=== PATIENT | female | born 1950 | race Caucasian/White ===

== ENCOUNTER 2024-05-19 10:30 | Emergency (ER) | payer MEDICARE, MEDICAID, SELFPAY ==
[2024-05-19 10:35] VITALS: BP 171/110; PULSE 96; RESP 20; TEMP 36.3; O2SAT 95
[2024-05-19 11:00] VITALS: PULSE 100; O2SAT 95
--- NOTE | 2024-05-19 11:14 | XR_ITS ---
Examination: AP chest single view Technique: AP portable semiupright chest single view Exam date and time: May 19, 2024 1126 hrs. Comparison November 30, 2023 Indications: Shortness of breath coughing congestion today. Findings: Mild heart failure Moderate enlargement cardiac contour Prominent vascular congestion Suspicious for early pneumonia right upper lobe Prominent osteopenia Impression: Mild heart failure Suspicious for early pneumonia right upper lobe
--- NOTE | 2024-05-19 11:15 | EDNOTE_ITS ---
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 I have no knowledge of baseline and no report given. CODE STATUS not available at the time of this dictation. Patient has stable vital signs has a wet nonproductive cough. Per the care facility patient is full code. Related Data Home Medications ?Medication ?Instructions ?Recorded ?Confirmed loratadine 10 mg tablet 10 mg feeding tube QDAY 04/2412/01/23 phenobarbital 32.4 mg tablet 32.4 mg feeding tube BID 12/01/23 12/01/23 phenytoin 50 mg chewable tablet 50 mg G-tube BID 11/3012/01/23 Allergies Allergy/AdvReac Type Severity Reaction Status Date / Time No Known Allergies Allergy Verified 05/17/22 11:03 Review of Systems Review of Systems ROS Unobtainable: unobtainable due to mental status Past Medical History Past Medical History NEUROLOGIC: Positive Neurological Disorders, Seizures and Cerebral Palsy CARDIAC: Negative Cardiac Disorders, Hypercholesterolemia, Congestive Heart Failure, Hypertension or Hypotension RESPIRATORY: Negative Chronic Obstructive Pulmonary Disease (COPD), Asthma or Sleep Apnea GASTROINTESTINAL: Positive Gastrointestinal Disorders GENITOURINARY: Positive Genitourinary Disorders; Negative Renal Disease MUSCULOSKELETAL: Positive Musculoskeletal Disorders ENT: Positive Blind ENDOCRINE: Negative Endocrine Disorders, Diabetes Mellitus Type 1 or Diabetes Mellitus Type 2 HEMATOLOGIC: Negative Sickle Cell Disease OTHER HISTORY: Positive Developmental Delay; Negative Blood Transfusions, Anesthesia Reactions or Cancer Social History SMOKING STATUS: Never smoker ED Exam Narrative Physical exam: [General: Appears not in any acute distress Head normocephalic HEENT: Eyes closed. Report is blind, mouth pink dry membranes swallow symmetrical Neck is supple nontender Chest equal chest rise nontender to palpation Respiratory: Expiratory crackles in the right base. No tachypnea CV: Rate rhythm is regular no murmurs rubs or clicks Abdomen is body habitus soft nontender no masses positive bowel sounds all 4 stacy drants Back: No CVA tenderness no spinous process tenderness from cervical spine thoracic and lumbar spine Skin: Intact no petechiae rash induration ulceration or crepitus Extremities: All extremities flaccid, upper extremity hands contracted. Neuro: Breathing. Course Course Course Narrative: Patient has a normal rectal temperature, stable vital signs with oxygen saturations 95 to 96% or greater on room air. Chest x-ray shows no acute infiltrates. Influenza A positive influenza B negative. Respiratory therapist states deep suctioning did not result in large amount of secretions. At this time and comfortable discharging the patient home with influenza A. Quality Measures none Orders Category Date Time Status Bedside COVID-19 Antigen Test NOW Care 05/19/24 11:14 Completed Bedside Influenza A&B Antigen Test NOW Care 05/19/24 11:14 Completed XR chest 1V Stat Exams 05/19/24 11:14 Completed Airway suctioning ONCE RT 05/19/24 11:44 Completed Vital Signs Vital signs: Vital Signs Temperature 97.4 F 05/19/24 10:35 Pulse Rate 96 05/19/24 10:35 Respiratory Rate 20 05/19/24 10:35 Blood Pressure 171/110 H 05/19/24 10:35 Pulse Oximetry (%) 95 05/19/24 10:35 Oxygen Delivery Method Room Air 05/19/24 10:35 [facility] Patient data External records reviewed:: [facility] previous records and EMS form Clinical information provided by:: patient and EMS Social determinants that could affect healthcare access:: none Patient has the following chronic illnesses:: Quadriplegia cerebral palsy developmental delay blind How is presenting disease/condition affected by chronic disease/condition?: uneffected by Evaluation data The following diagnostics were reviewed and interpreted by me:: radiology exam(s) Lab and/or radiology exams considered but not ordered:: Influenza A positive Chest x-ray as interpreted by me shows no acute new finding requires emergent or immediate intervention. Interpretation Summary: Influenza A Medications Medications considered but not ordered:: None Medication administrations:: None Consultations Consultation(s) initiated? (list below): No Diagnosis Differential Diagnosis ED Complaint MDM: UTI pneumonia influenza Most likely diagnosis given after review of the tests above:: Influenza A Admission Indicated Admission indicated?: not indicated Explain why admission is indicated or not indicated:: Stable for discharge Admission Request Was there a request for admission?: No Disposition Plan Disposition Plan: Discharge Discharge Attestation Discharge Attestation: The patient and all family members were given an opportunity to ask questions and understood the discharge instructions. Discharge instructions specifically effects, indications for sooner follow up or return to the emergency department, and the expected course of current diagnosis. Patient condition: Stable Medical Decision Making Differential Diagnosis Differential Diagnosis: UTI pneumonia influenza Discharge Plan Plan Patient Disposition: HOME (Self Care) Patient condition on transfer: Stable Prescriptions/Referrals Prescriptions/Med Rec: No Action loratadine 10 mg Tablet 10 mg feeding tube QDAY phenytoin 50 mg Tablet,Chewable 50 mg G-tube BID phenobarbital 32.4 mg Tablet 32.4 mg feeding tube BID Problem List Clinical Impression: Influenza A Patient/Caregiver Discharge Instructions Education Materials: ED Influenza (Adult) Print Language: Citizen Of [place] Stand Alone Forms: Jessica Award Info., Patient Portal Info Letter PA/BANKRUPTCY MANAGER Supervising Physician PA/BANKRUPTCY MANAGER Supervising Physician: Sivakumar Mckeon ENP
[2024-05-19 12:14] VITALS: BP 174/65; PULSE 84; RESP 16; TEMP 36.6; O2SAT 94
--- NOTE | 2024-05-19 13:54 | PC.CC ---
ASWKeely was consulted regarding transportation back to shelter for the patient. ASW made contact with Savannah Betancur optometrist owner of the [employer] whom provided address for the patient to be transported back. ASW arranged transportation via [employer] for the patient. Reservation number [phone]
[2024-05-19 14:30] VITALS: BP 169/64; PULSE 87; RESP 18; TEMP 36.8; O2SAT 96
[2024-05-19 15:20] VITALS: BP 177/61; PULSE 85; RESP 18; TEMP 36.7; O2SAT 97
== END 2024-05-19 15:21 | disposition home or self-care (01) ==
LOC: SERX 13:55
PROVIDERS: Emergency Provider Emergency Medicine; PCP Nurse Practitioner Family
DX: J10.1 Influenza due to other identified influenza virus with other respiratory manifestations (principal); G80.8 Other cerebral palsy
CPT/HCPCS: 71045; 87400; 87811; 99283

== ENCOUNTER 2024-05-21 09:05 | Inpatient (IN) | payer MEDICARE, MEDICAID, SELFPAY ==
[2024-05-21] VITALS (13 sets, daily range): BP systolic 118–160; BP diastolic 63–86; PULSE 84–116; RESP 14–92; TEMP 36.3–37.4; O2SAT 94–99; BMI 31.8
--- NOTE | 2024-05-21 09:40 | PC.NURSE ---
PT RIVERAA; PER EMS REPORT, PT COMING FROM [facility] WITH S/O SOB. PT WAS SEEN HERE ON MONDAY AND WAS FLU POSITIVE AND WAS SENT BACK TO [facility]. STAFF CONCERNED THAT PT'S SYMPTOMS ARE NOT GETTING BETTER. PT HAS BAD COUGH AND HAS BEEN REQUIRING FREQUENT SUCTIONING AT THE S[facility]IOR [facility]ING. PT ALSO HAD FEVER AND HAS BEEN RECEIVING TYLENOL 500MG. PT HAS HX OF CEREBRAL PALSY AND DEVELOPMENTAL DELAY. PT CONNECTED TO MONITORS AT THIS TIME.
--- NOTE | 2024-05-21 12:08 | EDNOTE_ITS ---
ED SOB =RME/HPI General Chief Complaint: Shortness of Breath/Dyspnea Stated Complaint: SOB Arrival date/time: 05/21/24 09:05 RME / HPI RME / HPI Narrative: DR. MEDEROS MAIN ED EVALUATION: 73 year old female with past medical history significant for cerebral palsy and developmental delay presents to the Emergency Department from senior living [facility]IB[facility] with complaints of shortness of breath and wheezing. Patient was positive for influenza A on Monday; symptoms worsening and per EMS, patient was gargling on sputum. Related Data Home Medications ?Medication ?Instructions ?Recorded ?Confirmed loratadine 10 mg tablet 10 mg feeding tube QDAY 07/04/2412/01/23 phenobarbital 32.4 mg tablet 32.4 mg feeding tube BID 12/01/23 12/01/23 phenytoin 50 mg chewable tablet 50 mg G-tube BID 11/3012/01/23 Allergies Allergy/AdvReac Type Severity Reaction Status Date / Time No Known Allergies Allergy Verified 05/17/22 11:03 Review of Systems Review of Systems ROS Unobtainable: unobtainable due to medical condition Past Medical History Past Medical History NEUROLOGIC: Positive Neurological Disorders, Seizures and Cerebral Palsy GASTROINTESTINAL: Positive Gastrointestinal Disorders GENITOURINARY: Positive Genitourinary Disorders MUSCULOSKELETAL: Positive Musculoskeletal Disorders ENT: Positive Blind OTHER HISTORY: Positive Developmental Delay Social History SMOKING STATUS: Unknown if ever smoked ED Exam Narrative Physical exam: Physical Exam: General: The vital signs were reviewed. Patient is nonverbal tachycardic O2 sat is 91% on room air that could chest to respirations she is blind does not engage is chronically developmental delays. The patient is non-toxic, in no apparent distress and appears healthy with a patent airway, no respiratory distress and has no apparent circulatory problems. Head & Scalp: Some type of birthmark on the right eye >>>>>>>>>normocephalic, atraumatic. Face: Appears normal and is without lesions, deformity. Ears: Left external pinna appears normal. Right external pinna appears normal. Eyes: The sclera is anicteric. No obvious photophobia. The Left and Right Orbit/Lid/Conjunctiva appears normal without swelling, discoloration or injection. Nose: The nose is without deformity, discharge or tenderness; Throat: Appears normal. The mucous membranes are pink and moist without exudates, redness or mass seen. The tongue appears normal. Neck: The neck is supple and no apparent mass or adenopathy. Chest: The chest wall is normal in size and symmetry and has no chest wall tenderness or crepitus. The patient displays normal ventilator effort without retractions, accessory muscle use and has adequate air movement bilaterally with no wheezes and no rales. Cardiovascular: Regular rate and rhythm; No murmurs, rubs, or gallops; Gastrointestinal: The abdomen appears normal. No obvious hernias or mass. The abdomen is soft and benign, non-distended, with no pain, no guarding and no rebound tenderness. Bowel sounds are present and normal sounding. No CVA tenderness. Genitourinary: Back/Spine: No obvious pathology. Extremities/Musculoskeletal/lymphatic: The bilateral upper and lower extremities are warm. There is no evidence of arterial insufficiency. There is no evidence of venous insufficiency/edema. The patient spontaneously moves bilateral upper and lower extremities with no pain and no limitation of movement. There is no apparent, injury or trauma. Skin: The skin is warm, dry and intact. No rashes. No petechia. No purpura. No abnormal bruising. The color is appropriate with no cyanosis. Mental status/Psychiatric: Nonverbal noninteractive Neurological: Noninteractive nonverbal no further physical exam is able to be done this evidently is her baseline. Course Quality Measures none Orders Category Date Time Status Boarder Hand STAT Care 05/21/24 12:08 Active Continuous Pulse Oximetry STAT Care 05/21/24 12:08 Completed EKG (ED ONLY) *Do not use* NOW Care 05/21/24 12:08 Completed Insert IV NOW Care 05/21/24 12:08 Completed Miscellaneous Nursing Order NOW Care 05/21/24 12:08 Active NPO STAT Care 05/21/24 12:08 Active EKG (ED Only) Stat Exams 05/21/24 12:08 Draft XR chest 1V portable Stat Exams 05/21/24 12:08 Completed B-Type Natriuretic Peptide Stat Lab 05/21/24 12:47 Completed Blood Culture (Lab) Stat Lab 05/21/24 12:42 Received CBC Stat Lab 05/21/24 12:47 Completed Comprehensive Metabolic Panel Stat Lab 05/21/24 12:47 Completed Lactate (Lactic Acid) Stat Lab 05/21/24 12:47 Completed Magnesium Stat Lab 05/21/24 12:47 Completed Procalcitonin Stat Lab 05/21/24 12:47 Completed Prothrombin Time with INR Stat Lab 05/21/24 12:47 Completed RSV [Respiratory Syncytial Virus Ag] Stat Lab 05/21/24 13:21 Completed Troponin I Stat Lab 05/21/24 12:47 Completed Urinalysis Stat Lab 05/21/24 15:38 Completed Urine Culture Stat Lab 05/21/24 12:47 Received Venous Blood Gas Stat Lab 05/21/24 12:47 Completed ALBUTEROL RT 0.5ml [Proventil Rt 0.5ml] Med 05/21/24 12:08 Discontinued 10 mg INH X1 ONE Ipratropium Miller Rt Rylee [Atrovent Rt Rylee] Med 05/21/24 12:08 Discontinued 0.5 mg INH X1 ONE MethylPREDNISolone.* [SoluMEDROL Inj] Med 05/21/24 12:08 Discontinued 125 mg IVP X1 ONE Piper/Tazo 3.375 gm [Zosyn] Med 05/21/24 17:37 Discontinued 3.375 gm in 50 ml IV X1 Oxygen Delivery NOW RT 05/21/24 12:08 Active Vital Signs Vital signs: Vital Signs Temperature 99.4 F 05/21/24 09:40 Pulse Rate 106 H 05/21/24 09:40 Respiratory Rate 26 H 05/21/24 09:40 Blood Pressure 139/85 H 05/21/24 09:40 Pulse Oximetry (%) 95 05/21/24 09:40 Oxygen Delivery Method Nasal Cannula 05/21/24 09:40 Oxygen Flow Rate 2 05/21/24 09:40 Shortness of Breath / Dyspnea MDM Narrative MDM Narrative:: Patient returns the emergency department was seen here 2 days ago found to have influenza. Today she was swabbed for RSV and that came back positive also. She had congested respirations and was given continuous nebs and that seems to have some improvement. O2 sats are really unchanged though. Medical workup revealed venous blood gas pH is 754 and a pCO2 of 28 with respiratory alkalosis. Sodium is 129 potassium 4 6 chloride 97 CO2 25.8. BUN 15 creatinine 0.7. Troponin was negative. BNP was procalcitonin was 0.06. Urinalysis was negative with a urinary cath. There was 3+ bacteria though. Chest x-ray reveals some haziness of the right upper quadrant suggesting early pneumonia. Because the patient's debilitated is requiring suction to manage her secretions and and she remains tachycardic think it is best that she be admitted for pulmon courtney toilet she needs her oxygen as her O2 sats dropped at 91% on room air I will start her on some antibiotics to cover her possible bacterial pneumonia versus viral. Hospitalist was called and they will be admitting. Discussed the case at great length. Because the patient got continuous nebs for wheezing and congestion this to be a critical care. ICharito, am scribing for and in the presence of Dr. Mederos. Patient data External records reviewed:: [facility] previous records (Reviewed last ED visit dated 05/19/24, discharged with the following: Influenza A) and EMS form Clinical information provided by:: EMS Social determinants that could affect healthcare access:: housing (senior living) Patient has the following chronic illnesses:: Cerebral palsy and developmental delay How is presenting disease/condition affected by chronic disease/condition?: exacerbated by Evaluation data The following diagnostics were reviewed and interpreted by me:: lab results, radiology exam(s) and EKG tracing(s) (EKG#1: EKG at 1250 hours. Interpreted by me: sinus rhythm, rate 91, no STEMI) Lab and/or radiology exams considered but not ordered:: none Interpretation Summary: See above under MDM narrative. RADIOLOGY Procedure(s): XR chest 1V portable Accession Number(s): [id number] cc: Chris Mederos MD; Hwoard Villanueva MD; NO PRIMARY/FAMILY,PHYSICIAN~ Examination: AP chest single view Technique one AP portable upright chest single view Exam date and time: May 21, 2024 1221 hours Comparison May 19, 2024 INDICATIONS: Dyspnea coughing today. FINDINGS: Mild heart failure Mild enlargement cardiac contour Prominent vascular congestion with early septal edema the lung bases Opacity right upper lobe consistent with early pneumonia IMPRESSION: Mild heart failure Pneumonia right upper lobe Dictated By: Howard Villanueva MD Medications / Prescriptions Medications or Prescriptions considered but not ordered:: none Medication administrations:: Medication Administration History Acetaminophen (Acetaminophen 325 Mg Tablet) 650 mg PO Q6H PRN PRN Reason: PAIN SCALE 1-3 (mild Stop: 06/20/24 18:10 Albuterol/Ipratropium (Albuterol/Ipratropium (Duoneb) Rt Rylee 3 Ml Nebu) 3 ml INH Q4HR PRN PRN Reason: SHORTNESS OF BREATH OR WHEEZE Stop: 06/20/24 18:08 Enoxaparin Sodium (Enoxaparin Sod Inj 40 Mg/0.4 Ml Syringe) 40 mg SC QDAY CARMITA Stop: 06/05/24 08:59 Hydroxyzine HCl (Hydroxyzine Hcl 10 Mg Tablet) 10 mg PO Q6HR PRN PRN Reason: anxiety Stop: 06/20/24 19:23 Ceftriaxone Sodium 1,000 mg/ (Sodium Chloride) 50 mls @ 100 mls/hr IV QDAY CARMITA Stop: 05/28/24 18:16 Last Infusion: 05/21/24 19:21 Dose: Infused Documented By: Admin: 05/21/24 18:43 Dose: 100 mls/hr Documented By: GM Doxycycline Hyclate 100 mg/ (Sodium Chloride) 100 mls @ 100 mls/hr IV BID CARMITA Stop: 05/28/24 20:59 Loratadine (Loratadine Liqd 1 Mg/1 Ml) 10 mg GT X1 ONE Stop: 05/22/24 09:01 Ondansetron HCl (Ondansetron Inj 2 Mg/Ml Inj 2 Ml) 4 mg IV Q6H PRN; Protocol PRN Reason: NAUSEA OR VOMITING Stop: 06/20/24 18:10 Pantoprazole Sodium (Pantoprazole Inj 40 Mg Vial) 40 mg IVP QDAY [facility] Stop: 06/21/24 08:59 Phenobarbital (Phenobarbital 32.4 Mg Tablet) 32.4 mg GT TID [facility] Stop: 06/04/24 21:59 Phenytoin (Phenytoin 100 Mg/4 Ml Udc) 50 mg NG BID CARMITA Stop: 06/20/24 20:59 Discontinued Medications Albuterol (Albuterol Rt 2.5 Mg/0.5 Ml Nebu) 10 mg INH X1 ONE Stop: 05/21/24 12:09 Last Admin: 05/21/24 12:34 Dose: 10 mg Documented By: MW Furosemide (Furosemide Inj 10 Mg/Ml 4ml Vial) 20 mg IVP X1 ONE Stop: 05/21/24 18:18 Last Admin: 05/21/24 18:43 Dose: 20 mg Documented By: GM Piperacillin/Tazobactam/Dextrose (Zosyn) 3.375 gm in 50 mls @ 100 mls/hr IV X1 ONE Stop: 05/21/24 18:06 Last Infusion: 05/21/24 18:30 Dose: Infused Documented By: Admin: 05/21/24 17:50 Dose: 100 mls/hr Documented By: GM Ipratropium Miller (Ipratropium Rt 0.5 Mg/ 2.5 Ml Nebu) 0.5 mg INH X1 ONE Stop: 05/21/24 12:09 Last Admin: 05/21/24 12:34 Dose: 0.5 mg Documented By: MW Lactulose (Lactulose Syrup 20 Gm/30 Ml Udc) 10 gm GT X1 ONE; Protocol Stop: 05/21/24 18:15 Last Admin: 05/21/24 18:45 Dose: 10 gm Documented By: GM Methylprednisolone Sodium Succinate (Methylprednisolone Sod Succ 62.5 Mg/Ml 2ml Vial) 125 mg IVP X1 ONE Stop: 05/21/24 12:09 Last Admin: 05/21/24 12:32 Dose: 125 mg Documented By: GM Sodium Chloride (Sodium Chloride Rt 10% 15 Ml Nebu) 5 ml INH X1 ONE Stop: 05/21/24 18:12 see above Consultations Consultation(s) initiated? (list below): Yes Consultation #1 (Physician, Specialty, Details): Discussed test HPI, PMHx, lab, radiology results and/or management with hospitalist. Will admit for further evaluation and management. Accepts patient for admission. Time: 17:37 Diagnosis Shortness of Breath Differential Diagnosis: acute exacerbation of chronic obstructive airways disease, community acquired pneumonia and other (influenza) Most likely diagnosis given after review of the tests above:: Right upper xavier pneumonia Cerebral palsy Delayed developmental milestones RAD Hypoxemia RSV Influenza Admission Indicated Admission indicated?: indicated Admission Request Was there a request for admission?: Yes Admission Attestation Admission request attestation: Discussed case with [] from Hospitalist service regarding admission. Discussed patients ED course, exam findings, labs, and radiology results. The Hospitalist [agrees,declines] to accept the patient for admission. Disposition Plan Disposition Plan: Admit Critical Care Time Critical Care Time Critical Care Time: Yes Total Critical Care Time (min.): 45 Attestation: The high probability of sudden, clinically significant deterioration in the patient?s condition required the highest level of my preparedness to intervene urgently. The services I provided to this patient were to treat and/or prevent clinically significant deterioration. Services included the following: chart data review, reviewing nursing notes and/or old charts, documentation time, contaminated land consultant collaboration regarding findings and treatment options, medication orders and management, direct patient care, vital sign assessments and ordering, interpreting and reviewing diagnostic studies and lab tests. Aggregate critical care time includes only time during which I was engaged in work directly related to the patient?s care, as described above, whether at bedside or elsewhere in the Emergency Department. It did not include time spent performing other reported procedures or the services of residents, students, nurses or physician assistants. Discharge Plan Plan Patient Disposition: Admit Acute Care w/in Hospital Disposition Comment: Hospitalist to admit Problem List Clinical Impression: Right upper lobe pneumonia, Cerebral palsy, Delayed developmental milestones, RAD (reactive airway disease), Hypoxemia, RSV (respiratory syncytial virus pneumonia), Influenza
--- NOTE | 2024-05-21 12:08 | EKG_ITS ---
[facility] Test Date: 2024-05-21 Pat Name: MARKUS LEIGH Department: Room: - Gender: Female Lead Machinist: : 1950 Requested By: Chris Henderson Order Number: [id number] Reading MD: Chris Henderson Measurements Intervals [place] Rate: 91 P: 74 MI: 141 QRS: 71 QRSD: 77 T: 11 QT: 342 QTc: 421 Interpretive Statements SINUS RHYTHM LOW QRS VOLTAGE IN PRECORDIAL LEADS [QRS DEFLECTION < 1.0 mV IN CHEST LEADS] NONSPECIFIC T-WAVE ABNORMALITY Compared to ECG 11/30/2023 22:26:11 T-wave abnormality now present /store/S0/[id number]/ecg/[id number].pdf
[2024-05-21] MEDS: MethylPREDNISolone SOD SUCC 62.5 MG/ML 2ML VIAL 125 MG IVP (12:32)
[2024-05-21] MEDS: IPRATROPIUM RT 0.5 MG/ 2.5 ML NEBU INH (12:34)
[2024-05-21] MEDS: ALBUTEROL RT 2.5 MG/0.5 ML NEBU 10 MG INH (12:34)
[2024-05-21 13:00] LABS: Base Excess, Venous 3 (-3-3); O2 Saturation, Venous 100 % (96-97); PCO2, Venous 28 mmHg (36-56); PO2, Venous 108 mmHg (15-58); pH, Venous 7.54 (7.33-7.66)
[2024-05-21 13:02] LABS: Lactate (Lactic Acid) 1.1 mMol/L (0.4-2.0)
--- NOTE | 2024-05-21 13:02 | PC.NURSE ---
PT HAD SMALL BM, GREEN IN COLOR, SOFT & FORMED IN QUALITY. PT GIVEN PERINEAL CARE WITH WARM BATH CLOTHS. PT PLACED IN NEW BRIEFS AND GIVEN NEW BLANKET AT THIS TIME.
[2024-05-21 13:08] LABS: Basophils % (Auto) 0 % (0-2.5); Eosinophils # (Auto) 0.1 Thou/mm3 (0.0-0.5); Eosinophils % (Auto) 1 % (0-10); Hematocrit 37.9 % (36.0-46.0); Hemoglobin 13.1 g/dL (12.0-16.0); Immature Granulocytes % (Auto) 0 % (0-0); Immature Granulocytes Auto 0.04 Thou/mm3 (0.00-0.00); Lymphocytes # (Auto) 2.7 Thou/mm3 (1.0-4.8); Lymphocytes % (Auto) 25 % (10-50); Mean Corpuscular HGB Conc 34.6 g/dl (31.0-37.0); Mean Corpuscular Hemoglobin 32.7 pg (25.0-35.0); Mean Corpuscular Volume 95 fL (80-100); Monocytes # (Auto) 1.6 Thou/mm3 (0.0-0.8); Monocytes % (Auto) 15 % (0-12); Neutrophils # (Auto) 6.2 Thou/mm3 (1.8-7.7); Neutrophils % (Auto) 58 % (37-80); Nucleated Red Blood Cell % 0 /100 WBC (0); Platelet Count 159 Thou/mm3 (140-440); RDW Standard Deviation 46.5 fL (36.4-46.3); Red Blood Count 4.01 Miln/mm3 (4.00-5.20); White Blood Count 10.7 Thou/mm3 (3.6-11.0)
[2024-05-21 13:24] LABS: B-Type Natriuretic Peptide 40 pg/mL (0-100)
[2024-05-21 13:34] LABS: Alanine Aminotransferase 22 U/L (10-49); Albumin, Serum 3.6 gm/dL (3.4-4.8); Albumin/Globulin Ratio 1.1 (1.2-2.2); Alkaline Phosphatase 215 U/L (46-116); Anion Gap 6 (7-16); Aspartate Amino Transferase 35 U/L (0-34); BUN/Creatinine Ratio 38 Ratio (12-20); Bilirubin,Total < 0.2 mg/dL (0.3-1.2); Blood Urea Nitrogen 15 mg/dL (9-23); Calcium 8.6 mg/dL (8.3-10.6); Calcium (Corrected) 8.9 mg/dL (8.5-10.1); Carbon Dioxide 25.8 mMol/L (20.0-31.0); Chloride 97 mMol/L (98-107); Creatinine (Component) 0.4 mg/dL (0.6-1.3); Estimated Creatinine Clearance 124.9 mL/min (>60); Globulin 3.3 gm/dL (2.3-3.5); Glucose 114 mg/dL (74-106); Osmolality,Calculated 260 (275-295); Potassium 4.6 mMol/L (3.4-5.1); Procalcitonin 0.06 ng/ml (0.0-0.49); Sodium 129 mMol/L (136-145); Total Protein 6.9 gm/dL (5.7-8.2); Troponin I < 0.020 ng/mL (0.0-0.045); eGFR > 60 See Note
[2024-05-21 13:35] LABS: Respiratory Syncytial Virus Ag Positive (Negative)
[2024-05-21 13:35] LABS: Prothrombin Time 10.9 Seconds (9.0-12.2)
[2024-05-21 16:00] LABS: Collection Type, Urine Clean Catch; Squamous Epithelial Cell,Urine 0 /hpf (0-5)
[2024-05-21 16:32] LABS: Bacteria,Urine 3+; Bilirubin,Urine Negative (Negative); Blood,Urine Negative (Negative); Clarity,Urine Clear (Clear/Hazy); Color,Urine Lt-Yellow (Lt Yel-Yel); Glucose, Urine Negative (Negative); Ketones,Urine Negative (Negative); Leukocyte Esterase,Urine Positive (Negative); Nitrite,Urine Negative (Negative); PH,Urine 6.5 (5.0-7.0); Protein,Urine Negative (Neg - Trace); RBC,Urine 1 /hpf (0-3); Specific Gravity,Urine 1.008 (1.001-1.035); Urobilinogen,Urine Negative mg/dL (0.0-1.0); WBC,Urine 1 /hpf (0-5)
[2024-05-21] MEDS: PIPER/TAZO 3.375 GM 3.375 GM/50 ML BAG IV (17:50)
--- NOTE | 2024-05-21 18:16 | PD.RESHP ---
Documentation for date of: 05/21/24 HPI History of Present Illness History of present illness: HPI is limited because patient is poor historian and is deaf. Most of history obtained through forms and chart review Daria is a 73 y/o female with PMHx of developmentally delayed, cerebral palsy, epilepsy, quadriplegic, cerebral palsy, blind, deaf, chronic PEG who comes from facility who comes for an evaluation of not feeling well, and shortness of breath. Of note, pt was recently discharged from the ED for similar complaints as caretakers said she was not feeling well. She tested positive for Influenza A, however, not knowing the duration of symptoms, tamiflu was not prescribed. Pt comes to the ED today for evaluation of SOB as she was brought it hypoxic. ED Course: Pt came to the ED with a temperature of 99.4, HR of 106, RR of 26, blood pressure of 139/85, and saturating 95% on 2LNC. She was evaluated and was found to have a sodium of 129, potassium of 4.6, chloride of 97,, bicarb 26, BUN/creatinine 15 and 0.4 respectively, glucose 114, white blood cell count 10.7, hemoglobin 13.1, platelet 159. VBG showed pH of 7.54, pCO2 of 28. AST ALT 35 and 22 respectively, magnesium 2.0, lactate 1.1, Pro-Mingo unremarkable, troponin negative x 1. Urinalysis shows leukosite esterase positive and +3 bacteria, RSV positive. Chest x-ray shows mild right sided pneumonia and mild CHF pattern. Patient was given albuterol x 1 ipratropium x 1, Solu-Medrol 125 mg x 1. Medicine was consulted and patient was admitted to the floors Past medical history: As above Surgical history unknown Allergies: Unknown Meds: Phenytoin 50 mg twice daily, loratadine 10 mg x 1, MiraLAX, hydroxyzine 10 mg as needed Family Hx: Limited Social history: Limited, no family, comes from facility and hearing care professional. Review of Systems Review of Systems Narrative Review of Systems: 12 point ROS is limited due to patient being poor historian Exam Vital Signs Temp Pulse Resp BP Pulse Ox O2 Del Method O2 Flow Rate 97.4 F 116 H 14 160/83 H 95 Nasal Cannula 3 05/21/24 18:00 05/21/24 15:37 05/21/24 18:00 05/21/24 18:00 05/21/24 18:00 05/21/24 18:00 05/21/24 18:00 Narrative Exam General: AAOx1?, Mouth breather, deaf, blind does not appear to be in any acute distress, sleeping, patient is in bottled up state with arms and feet close to body, chronically bedbound, quadriplegic HEENT: Moist mucous membranes, 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 Results: Labs 05/22/24 04:48 05/22/24 04:48 Labs: Short CBC 05/21/24 Range/Units 12:47 WBC 10.7 (3.6-11.0) Thou/mm3 Hgb 13.1 (12.0-16.0) g/dL Hct 37.9 (36.0-46.0) % Plt Count 159 (140-440) Thou/mm3 BMP 05/21/24 12:47 Sodium 129 L Potassium 4.6 Chloride 97 L Carbon Dioxide 25.8 BUN 15 Creatinine 0.4 L Glucose 114 H Calcium 8.6 Cardiac Enzymes 05/21/24 Range/Units 12:47 Troponin I < 0.020 (0.0-0.045) ng/mL Liver Function 05/21/24 Range/Units 12:47 Total Bilirubin < 0.2 L (0.3-1.2) mg/dL AST 35 H (0-34) U/L ALT 22 (10-49) U/L Alkaline Phosphatase 215 H (46-116) U/L Albumin 3.6 (3.4-4.8) gm/dL Urine 05/21/24 Range/Units 15:38 Urine Color Lt-Yellow (Lt Yel-Yel) Urine Clarity Clear (Clear/Hazy) Urine pH 6.5 (5.0-7.0) Ur Specific [place] 1.008 (1.001-1.035) Urine Protein Negative (Neg - Trace) Urine Glucose (UA) Negative (Negative) ABG Interpretation ABG results: 05/21/24 12:47 VBG pH 7.54 VBG pCO2 28 L VBG pO2 108 H VBG Base Excess 3 Quality Measures Quality Measures none Advance care planning discussed with:: patient Medications Home Medications and Allergies Home Medications ?Medication ?Instructions ?Recorded ?Confirmed ?Type loratadine 10 mg tablet 10 mg feeding tube QDAY 10/01/21 05/22/24 History phenobarbital 32.4 mg tablet 32.4 mg feeding tube BID 12/01/23 05/22/24 History phenytoin 50 mg chewable tablet 50 mg G-tube BID 12/01/23 05/22/24 History benzonatate 100 mg capsule 100 mg PO Q6H PRN cough 05/22/24 05/22/24 History hydroxyzine HCl 10 mg/5 mL oral 10 mg PO QID PRN itching 05/22/24 05/22/24 History solution polyethylene glycol 3350 17 gram 17 g feeding tube PRN PRN 05/22/24 05/22/24 History oral powder packet (ClearLax) constipation Allergies Allergy/AdvReac Type Severity Reaction Status Date / Time No Known Allergies Allergy Verified 05/17/22 11:03 Visit Medications Discontinued Medications Albuterol (Albuterol Rt 2.5 Mg/0.5 Ml Nebu) 10 mg INH X1 ONE Stop: 05/21/24 12:09 Last Admin: 05/21/24 12:34 Dose: 10 mg Piperacillin/Tazobactam/Dextrose (Zosyn) 3.375 gm in 50 mls @ 100 mls/hr IV X1 ONE Stop: 05/21/24 18:06 Last Admin: 05/21/24 17:50 Dose: 100 mls/hr Ipratropium [place] (Ipratropium Rt 0.5 Mg/ 2.5 Ml Nebu) 0.5 mg INH X1 ONE Stop: 05/21/24 12:09 Last Admin: 05/21/24 12:34 Dose: 0.5 mg Methylprednisolone Sodium Succinate (Methylprednisolone Sod Succ 62.5 Mg/Ml 2ml Vial) 125 mg IVP X1 ONE Stop: 05/21/24 12:09 Last Admin: 05/21/24 12:32 Dose: 125 mg Assessment & Plan Plan Assessment Daria is a 73 y/o female with PMHx of developmentally delayed, cerebral palsy, epilepsy, quadriplegic, cerebral palsy, blind, deaf, chronic PEG who is currently admitted for AHRF 05/05 to RSV PNA. #Acute hypoxic respiratory failure secondary to #RSV pneumonia #Influenza A positive, on 05/19 #? Superimposed bacterial infection, CAP versus aspiration No sepsis alert initiated Patient did come recently in for influenza A positive, however was not given Tamiflu Possible vascular congestion Was given Zosyn and Solu-Medrol 125 x 1 in ED Plan: ? Doxy and Rocephin ? DuoNebs as needed every 4 hours ? Frequent suctioning ? Oxygen, wean down as tolerated ? Tylenol for fever #Euvolemic hypoosmolar hyponatremia #Hypochloridemia #? Metabolic alkalosis with respiratory compensation Unsure if patient has oral intake or GI losses Patient does not appear to be hypovolemic at this time VBG shows pH of 7.5, however chloride of 97, potassium 4.6 Will hold on giving fluids at this time Plan: ? Fluid restriction ? Trend with CMP #History of seizure disorder. Chronic Plan: ?Resume phenobarbital 32.43 times a day ?Resumed home phenytoin 50 mg twice a day #History of developmental delay. #History of cerebral palsy on PEG tube. #History of quadriplegia. #History of blindness. #Hx of Deafness Chronic Will reach out to cdl b driver home for further information Plan: ? Referral to dietitian, will resume feeds after recommendations #Health Maintenance Disposition: Observation DVT prophylaxis: Lovenox GI prophylaxis: Protonix Diet: Will resume tube feeds tomorrow CODE STATUS: Full code, however will need to find POLST form Patient seen and care discussed with my senior resident, Dr. Nuñez , and my attending physician, Dr. Paige Magallanes, PGY-1 Attending Provider Attestation/Addendum I have examined the patient, reviewed labs and imaging findings, discussed the case with the resident(s), and reviewed entered orders. I agree with the plan of care as outlined in this note, with these additional summaries/recommendations: Patient is a 73-year-old female with a medical history of cerebral palsy, seizure disorder, developmental delay, and PEG tube who presents to [facility] emergency department on 05/21/2024 with chief complaints of shortness of breath and wheezing. Patient was found to have acute hypoxic respiratory failure and thus hospitalist team consulted for continuation of care. Patient seen at bedside. Patient will be admitted for acute hypoxic respiratory failure secondary to viral pneumonia from RSV plus influenza. Of note patient was diagnosed with influenza 2 days prior and has worsening symptoms. Chest x-ray shows pneumonia in right upper lobe. Start IV antibiotics. Order sputum cultures. Breathing treatments as needed. Follow-up blood cultures. Continue home antiepileptics for seizure disorder. Patient has PEG tube and we will consult dietary for tube feeds and free water flushes. Patient has history of chronic hyponatremia and sodium 129 and serum osmolality 260 on admission. We will proceed with fluid restriction for now. Repeat hematology and chemistry panel in AM. Dr. Paige MD
[2024-05-21] MEDS: cefTRIAXone 1,000 MG in SODIUM CHLORIDE 0.9% (Popper) 50 ML 100 MG IV (18:43)
[2024-05-21] MEDS: FUROSEMIDE INJ 10 MG/ML 4ML VIAL 20 MG IVP (18:43)
[2024-05-21] MEDS: LACTULOSE SYRUP 20 GM/30 ML UDC 10 GM GT (18:45)
[2024-05-21] MEDS: SODIUM CHLORIDE RT 10% 15 ML NEBU 5 ML INH (20:24)
[2024-05-21] MEDS: PHENYTOIN 100 MG/4 ML UDC 50 MG NG (22:56)
[2024-05-21] MEDS: PHENobarbitaL 32.4 MG TABLET GT (22:56)
[2024-05-21] MEDS: DOXYCYCLINE INJ 100 MG in SODIUM CHLORIDE 0.9% (P) 100 ML IV (22:56)
[2024-05-22] VITALS (9 sets, daily range): BP systolic 109–150; BP diastolic 55–86; PULSE 92–118; RESP 14–26; TEMP 36.4–37.1; O2SAT 93–118; BMI 21.0
[2024-05-22 05:26] LABS: Basophils % (Auto) 0 % (0-2.5); Eosinophils % (Auto) 0 % (0-10); Hematocrit 41.7 % (36.0-46.0); Hemoglobin 14.2 g/dL (12.0-16.0); Immature Granulocytes % (Auto) 0 % (0-0); Immature Granulocytes Auto 0.03 Thou/mm3 (0.00-0.00); Lymphocytes # (Auto) 1.1 Thou/mm3 (1.0-4.8); Lymphocytes % (Auto) 11 % (10-50); Mean Corpuscular HGB Conc 34.1 g/dl (31.0-37.0); Mean Corpuscular Hemoglobin 32.1 pg (25.0-35.0); Mean Corpuscular Volume 94 fL (80-100); Monocytes # (Auto) 1.2 Thou/mm3 (0.0-0.8); Monocytes % (Auto) 11 % (0-12); Neutrophils # (Auto) 7.8 Thou/mm3 (1.8-7.7); Neutrophils % (Auto) 77 % (37-80); Nucleated Red Blood Cell % 0 /100 WBC (0); Platelet Count 180 Thou/mm3 (140-440); RDW Standard Deviation 45.9 fL (36.4-46.3); Red Blood Count 4.42 Miln/mm3 (4.00-5.20); White Blood Count 10.1 Thou/mm3 (3.6-11.0)
[2024-05-22 05:52] LABS: Glucose Estimated Average 97 mg/dL (80-131)
[2024-05-22 05:54] LABS: Alanine Aminotransferase 27 U/L (10-49); Albumin/Globulin Ratio 1.1 (1.2-2.2); Alkaline Phosphatase 224 U/L (46-116); Anion Gap 10 (7-16); Aspartate Amino Transferase 30 U/L (0-34); BUN/Creatinine Ratio 35 Ratio (12-20); Bilirubin,Total 0.2 mg/dL (0.3-1.2); Blood Urea Nitrogen 14 mg/dL (9-23); Calcium 9.3 mg/dL (8.3-10.6); Calcium (Corrected) 9.3 mg/dL (8.5-10.1); Carbon Dioxide 27.4 mMol/L (20.0-31.0); Cardiac Risk Estimate 2.2 RATIO (3.7-5.6); Chloride 98 mMol/L (98-107); Cholesterol 160 mg/dL (132-200); Creatinine (Component) 0.4 mg/dL (0.6-1.3); Estimated Creatinine Clearance 102.1 mL/min (>60); Globulin 3.7 gm/dL (2.3-3.5); Glucose 86 mg/dL (74-106); HDL Cholesterol 72 mg/dL (40-60); LDL Cholesterol,Calculated 79 mg/dL (0-130); Magnesium 1.9 mg/dL (1.6-2.6); Osmolality,Calculated 269 (275-295); Phosphorous 2.9 mg/dL (2.4-5.1); Potassium 4.2 mMol/L (3.4-5.1); Sodium 135 mMol/L (136-145); Thyroid Stimulating Hormone 4.45 uIU/mL (0.55-4.78); Total Protein 7.7 gm/dL (5.7-8.2); Triglycerides 45 mg/dL (30-150); eGFR > 60 See Note
[2024-05-22] MEDS: PHENobarbitaL 32.4 MG TABLET GT ×3 (05:58→22:37)
[2024-05-22] MEDS: DOXYCYCLINE INJ 100 MG in SODIUM CHLORIDE 0.9% (P) 100 ML IV ×2 (09:44→22:00)
[2024-05-22] MEDS: cefTRIAXone 1,000 MG in SODIUM CHLORIDE 0.9% (Popper) 50 ML 100 MG IV (09:44)
[2024-05-22] MEDS: PHENYTOIN 100 MG/4 ML UDC 50 MG NG ×2 (09:45→22:37)
[2024-05-22] MEDS: ENOXAPARIN SOD INJ 40 MG/0.4 ML SYRINGE SC (09:45)
[2024-05-22] MEDS: PANTOPRAZOLE INJ 40 MG VIAL IVP (09:46)
--- NOTE | 2024-05-22 10:39 | PC.SS ---
Initial assessment: Patient is a 73-year-old female admitted for SOB. The patient is confused unable to complete assessment. Contacted Savannah listed on facesheet to complete the assessment. Savannah informs the patient is a resident of [facility]. Confirmed address and phone number of facesheet. Patient is aligned with [facility], however not conserved. The patient's alternate medical decision maker is designated to be Dr. Hardy with [facility]. [facility] block and case maker is Pascale Moise . The patient is completely wheelchair bound and requires assistance with ADL's. Patient's PCP is Dr. Angelique Chamorro. The discharge plan was discussed and patient to return to snf once stable. For transportation reach out to Savannah, from the snf to determine if available if not SS to arrange transportation on behalf of the patient. D/c plan: [facility] Contact: Savannah Betancur Next of Kin: [facility]: Dr. Hardy
[2024-05-22] MEDS: lorataDINE 10 MG TABLET PO (12:08)
--- NOTE | 2024-05-22 14:24 | ESPR_ITS ---
<Statement entered by Venancio Nuñez MD - 05/22/24 18:19> Senior Resident Attestation: I supervised/discussed management plan with architecture intern physician Dr. Magallanes, and was involved in the care of this patient. I personally saw and examined the patient and discussed the assessment and plan with the entire medicine team, including my attending. I agree with the assessment and plan as documented. Patient's care was discussed with attending physician, Dr. Gibson. Venancio Nuñez MD PGY-2. Documentation for date of: 05/22/24 Subjective Subjective Interval history: HPI is limited as patient is deaf and poor historian Patient examined at bedside today. No acute overnight events. Patient was sleeping when examined. BUN/creatinine of 14 and 0.4 slightly, white count of 10.1, hemoglobin 14.2, bicarb 27, sodium 135, potassium 4.2, magnesium 1.9. 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 Objective Labs 05/23/24 04:55 05/23/24 04:55 Labs: Laboratory Results - last 24 hr 05/21/24 05/22/24 15:38 04:48 WBC 10.1 RBC 4.42 Hgb 14.2 Hct 41.7 MCV 94 MCH 32.1 MCHC 34.1 RDW Std Deviation 45.9 Plt Count 180 Neut % (Auto) 77 Lymph % (Auto) 11 Hand % (Auto) 11 Eos % (Auto) 0 Baso % (Auto) 0 Neut # (Auto) 7.8 H Lymph # (Auto) 1.1 Hand # (Auto) 1.2 H Eos # (Auto) 0.0 Baso # (Auto) 0.0 Immature Gran # (Auto) 0.03 H Absolute Nucleated RBC 0.00 Immature Gran % 0 Nucleated RBC % 0 Sodium 135 L Potassium 4.2 Chloride 98 Carbon Dioxide 27.4 Anion Gap 10 BUN 14 Creatinine 0.4 L Estim Creat Clear Calc 102.1 eGFR > 60 BUN/Creatinine Ratio [address] Glu mg/dL 97 Hemoglobin A1c 5.0 Calculated Osmolality 269 L Calcium 9.3 Corrected Calcium 9.3 Phosphorus 2.9 Magnesium 1.9 Total Bilirubin 0.2 L AST 30 ALT 27 Alkaline Phosphatase 224 H Total Protein 7.7 Albumin 4.0 Globulin 3.7 H Albumin/Globulin Ratio 1.1 L Triglycerides 45 Cholesterol 160 LDL Cholesterol, Calc 79 HDL Cholesterol 72 H Cholesterol/HDL Ratio 2.2 L TSH 4.45 Ur Collection Type Clean Catch Urine Color Lt-Yellow Urine Clarity Clear Urine pH 6.5 Ur Specific [place] 1.008 Urine Protein Negative Urine Glucose (UA) Negative Urine Ketones Negative Urine Blood Negative Urine Nitrite Negative Urine Bilirubin Negative Urine Urobilinogen (Auto) Negative Ur Leukocyte Esterase Positive Urine RBC 1 Urine WBC 1 Ur Squamous Epith Cells 0 Urine Bacteria 3+ A ABG Interpretation ABG results: 05/21/24 12:47 VBG pH 7.54 VBG pCO2 28 L VBG pO2 108 H VBG Base Excess 3 Quality Measures Quality Measures none Advance care planning discussed with:: patient Assessment & Plan Assessment Current Active Medications: Generic Name Dose Route Start Last Admin Trade Name Freq PRN Reason Stop Dose Admin Acetaminophen 650 mg 05/21/24 18:11 Acetaminophen 325 Mg Tablet PO 06/20/24 18:10 Q6H PRN PAIN SCALE 1-3 (mild Albuterol/Ipratropium 3 ml 05/21/24 18:09 Albuterol/Ipratropium (Duoneb) Rt Rylee 3 Ml Nebu INH 06/20/24 18:08 Q4HR PRN SHORTNESS OF BREATH OR WHEEZE Enoxaparin Sodium 40 mg 05/22/24 09:00 02/19/25 09:45 Enoxaparin Sod Inj 40 Mg/0.4 Ml Syringe SC 06/05/24 08:59 40 mg QDAY CARMITA Administration Hydroxyzine HCl 10 mg 05/21/24 19:24 Hydroxyzine Hcl 10 Mg Tablet PO 06/20/24 19:23 Q6HR PRN anxiety Ceftriaxone Sodium 1,000 mg/ 50 mls @ 100 mls/hr 05/21/24 18:17 05/22/24 09:44 Sodium Chloride IV 05/28/24 18:16 100 mls/hr QDAY CARMITA Administration Doxycycline Hyclate 100 mg/ 100 mls @ 100 mls/hr 05/21/24 21:00 05/22/24 09:44 Sodium Chloride IV 05/28/24 20:59 100 mls/hr BID CARMITA Administration Ondansetron HCl 4 mg 05/21/24 18:11 Ondansetron Inj 2 Mg/Ml Inj 2 Ml IV 06/20/24 18:10 Q6H PRN NAUSEA OR VOMITING Protocol Pantoprazole Sodium 40 mg 05/22/24 09:00 05/22/24 09:46 Pantoprazole Inj 40 Mg Vial IVP 06/21/24 08:59 40 mg QDAY CARMITA Administration Phenobarbital 32.4 mg 05/21/24 22:00 05/22/24 13:48 Phenobarbital 32.4 Mg Tablet GT 06/04/24 21:59 32.4 mg TID CARMITA Administration Phenytoin 50 mg 05/21/24 21:00 05/22/24 09:45 Phenytoin 100 Mg/4 Ml Udc NG 06/20/24 20:59 50 mg BID CARMITA Administration Plan Assessment Daria is a 73 y/o female with PMHx of developmentally delayed, cerebral palsy, epilepsy, quadriplegic, cerebral palsy, blind, deaf, chronic PEG who is currently admitted for AHRF 2/2 to RSV PNA. #Acute hypoxic respiratory failure secondary to, improving, improving #RSV pneumonia, improving #Influenza A positive, on 05/19, improving #? Superimposed bacterial infection, CAP versus aspiration #GNR UTI No sepsis alert initiated Patient did come recently in for influenza A positive, however was not given Tamiflu Possible vascular congestion Was given Zosyn and Solu-Medrol 125 x 1 in ED Will follow up with urine culture sensitivites, pt is getting abx now It does not seem that patient has had GNR UTI in the past, however has had GPC UTI before Unsure if this is symptomatic or not at this time because patient is poor historian Plan: ? Doxy and Rocephin (05/21-) ? DuoNebs as needed every 4 hours ? Frequent suctioning ? Oxygen, wean down as tolerated ? Tylenol for fever ? Droplet and airborne precautions ? Follow-up urine culture #Euvolemic hypoosmolar hyponatremia #Hypochloridemia # Metabolic alkalosis with respiratory compensation, improving Sodium improving, levels 135 Will continue with fluid restriction at this time Plan: ? Fluid restriction ? Trend with CMP #History of seizure disorder. Chronic Plan: ? Continue phenobarbital 32.43 times a day ? Continue home phenytoin 50 mg twice a day #History of developmental delay. #History of cerebral palsy on PEG tube. #History of quadriplegia. #History of blindness. #Hx of Deafness Chronic Will reach out to business mgr home for further information For business mgr home family is not involved with patient's care, called about 3 months ago to see how she is doing, but does not seem that they visit her often. Has lived in a care home for about 40 years Plan: ? Referral to dietitian, will resume feeds after recommendations #Health Maintenance Disposition: Observation DVT prophylaxis: Lovenox GI prophylaxis: Protonix Diet: Tube feeds pending dietitian recs CODE STATUS: Full code Patient seen and care discussed with my senior resident, Dr. Nuñez , and my attending physician, Dr. Paige Magallanes, PGY-1 Attending Provider Attestation/Addendum I have examined the patient, reviewed labs and imaging findings, discussed the case with the resident(s), and reviewed entered orders. I agree with the plan of care as outlined in this note, with these additional summaries/recommendations: Patient seen at bedside. No acute overnight events. Patient continues to require supplemental oxygen. Significant secretions still present although appears slightly improved from yesterday. Patient is nonverbal and no history can be obtained. We will continue breathing treatments and supportive care for RSV & influenza. Continue IV antibiotics for likely superimposed bacterial infection. Blood cultures preliminarily showing no growth at 24 hours. Urine culture showing GNR. Sputum culture pending. Patient will remain hospitalized until final culture results are available and weaned from oxygen. Hyponatremia significantly improved. Continue antiepileptics. Continue tube feeds via PEG. Repeat hematology and chemistry panel in AM. Dr. Paige MD
--- NOTE | 2024-05-22 14:49 | PC.SS ---
Rounding note: plan is to resume tube feeds, pending cultures.
--- NOTE | 2024-05-22 15:04 | PC.DIETICIAN ---
Nutrition prescription: 1) Jevity 1.2 at 20 ml/hr via PEG tube by pump. Advance 10 ml every 8 hrs to goal rate of 40 ml/hr x 24 hrs. 2) Noel 1 pkt BID mixed with 6-8 oz water via PEG tube (unflavored). 3) Recommend: Vitamin C 250 mg BID, zinc sulfate 220 mg once daily, and nephro-vinay.
[2024-05-22] MEDS: ZINC SULFATE 220 MG CAPSULE GT (16:06)
[2024-05-22] MEDS: VIT B12/Vit C/FA (Nephrovite) TABLET 1 TAB GT (16:06)
[2024-05-22] MEDS: ALBUTEROL/IPRATROPIUM (Duoneb) RT SOL 3 ML NEBU INH (18:04)
[2024-05-22] MEDS: ASCORBIC ACID 250 MG TABLET GT (22:38)
[2024-05-23] VITALS (10 sets, daily range): BP systolic 116–157; BP diastolic 81–100; PULSE 80–110; RESP 17–25; TEMP 36–36.9; O2SAT 97–100
[2024-05-23 05:37] LABS: Basophils # (Auto) 0.1 Thou/mm3 (0.0-0.2); Basophils % (Auto) 1 % (0-2.5); Eosinophils # (Auto) 0.2 Thou/mm3 (0.0-0.5); Eosinophils % (Auto) 3 % (0-10); Hemoglobin 13.7 g/dL (12.0-16.0); Immature Granulocytes % (Auto) 0 % (0-0); Immature Granulocytes Auto 0.01 Thou/mm3 (0.00-0.00); Lymphocytes # (Auto) 1.4 Thou/mm3 (1.0-4.8); Lymphocytes % (Auto) 22 % (10-50); Mean Corpuscular HGB Conc 36.1 g/dl (31.0-37.0); Mean Corpuscular Hemoglobin 32.9 pg (25.0-35.0); Mean Corpuscular Volume 91 fL (80-100); Monocytes % (Auto) 15 % (0-12); Neutrophils # (Auto) 3.8 Thou/mm3 (1.8-7.7); Neutrophils % (Auto) 59 % (37-80); Nucleated Red Blood Cell % 0 /100 WBC (0); Platelet Count 203 Thou/mm3 (140-440); RDW Standard Deviation 43.6 fL (36.4-46.3); Red Blood Count 4.17 Miln/mm3 (4.00-5.20); White Blood Count 6.5 Thou/mm3 (3.6-11.0)
[2024-05-23] MEDS: PHENobarbitaL 32.4 MG TABLET GT ×2 (06:06→13:20)
[2024-05-23 06:34] LABS: Alanine Aminotransferase 35 U/L (10-49); Albumin, Serum 3.5 gm/dL (3.4-4.8); Albumin/Globulin Ratio 1.1 (1.2-2.2); Alkaline Phosphatase 203 U/L (46-116); Anion Gap 9 (7-16); Aspartate Amino Transferase 38 U/L (0-34); BUN/Creatinine Ratio 73 Ratio (12-20); Bilirubin,Total < 0.2 mg/dL (0.3-1.2); Blood Urea Nitrogen 29 mg/dL (9-23); Calcium 8.9 mg/dL (8.3-10.6); Calcium (Corrected) 9.3 mg/dL (8.5-10.1); Carbon Dioxide 24.7 mMol/L (20.0-31.0); Chloride 99 mMol/L (98-107); Creatinine (Component) 0.4 mg/dL (0.6-1.3); Estimated Creatinine Clearance 97.6 mL/min (>60); Globulin 3.1 gm/dL (2.3-3.5); Glucose 102 mg/dL (74-106); Magnesium 1.7 mg/dL (1.6-2.6); Osmolality,Calculated 272 (275-295); Potassium 4.2 mMol/L (3.4-5.1); Sodium 133 mMol/L (136-145); Total Protein 6.6 gm/dL (5.7-8.2); eGFR > 60 See Note
[2024-05-23] MEDS: PHENYTOIN 100 MG/4 ML UDC 50 MG NG (08:18)
[2024-05-23] MEDS: LANSOPRAZOLE 30 MG TAB.RAP.DR NG (08:18)
[2024-05-23] MEDS: VIT B12/Vit C/FA (Nephrovite) TABLET 1 TAB GT (08:19)
[2024-05-23] MEDS: ZINC SULFATE 220 MG CAPSULE GT (08:19)
[2024-05-23] MEDS: ASCORBIC ACID 250 MG TABLET GT (08:19)
[2024-05-23] MEDS: PANTOPRAZOLE INJ 40 MG VIAL IVP (08:19)
[2024-05-23] MEDS: cefTRIAXone 1,000 MG in SODIUM CHLORIDE 0.9% (Popper) 50 ML 100 MG IV (08:19)
[2024-05-23] MEDS: ENOXAPARIN SOD INJ 40 MG/0.4 ML SYRINGE SC (08:19)
[2024-05-23] MEDS: cephALEXin 250 MG CAPSULE 500 MG PO ×2 (09:59→17:12)
--- NOTE | 2024-05-23 10:01 | ESDS_ITS ---
<Statement entered by Sina Egan MD - 05/23/24 15:20> Patient was examined with the team including attending physician. Note reviewed, I agree with the discharge plan as documented. - Sina Egan M.D. PGY2 Planned Discharge Date 05/23/24 DS: Providers Provider Date of admission: 05/22/24 14:13 Primary care physician: Physician No Primary/Family Admitting Provider: Bao Gibson MD Attending Provider on Admission: Bao Gibson MD Consults: 05/21/24 18:15 Referral Registered Dietitian Routine Comment: 05/22/24 04:33 Referral Registered Dietitian Routine Comment: Referral Wound Care Routine Comment: Attending Provider on DC: Bao Gibson MD Discharging Provider: Bao Gibson MD DS: Diagnosis Problem List Completed Was Problem List Reviewed/Reconciled?: Yes Hospital Course Hospital Course Hospital course: HPI is limited because patient is poor historian and is deaf. Most of history obtained through forms and chart review Daria is a 73 y/o female with PMHx of developmentally delayed, cerebral palsy, epilepsy, quadriplegic, cerebral palsy, blind, deaf, chronic PEG who comes from facility who was admitted to [facility] on 05/21/2024 for RSV pneumonia and possible superimposed bacterial infection. She had initially came in for an evaluation of not feeling well, and shortness of breath. Of note, pt was recently discharged from the ED for similar complaints as caretakers said she was not feeling well. She tested positive for Influenza A, however, not knowing the duration of symptoms, Tamiflu was not prescribed. Pt comes to the ED today for evaluation of SOB as she was brought it hypoxic. Pt came to the ED with a temperature of 99.4, HR of 106, RR of 26, blood pressure of 139/85, and satura ting 95% on 2LNC. She was evaluated and was found to have a sodium of 129, potassium of 4.6, chloride of 97,, bicarb 26, BUN/creatinine 15 and 0.4 respectively, glucose 114, white blood cell count 10.7, hemoglobin 13.1, platelet 159. VBG showed pH of 7.54, pCO2 of 28. AST ALT 35 and 22 respectively, magnesium 2.0, lactate 1.1, Pro-Mingo unremarkable, troponin negative x 1. Urinalysis shows leukosite esterase positive and +3 bacteria, RSV positive. Chest x-ray shows mild right sided pneumonia and mild CHF pattern. Patient was given albuterol x 1 ipratropium x 1, Solu-Medrol 125 mg x 1. Medici ne was consulted and patient was admitted to the floors. While on the floors nurse staff home was contacted which elicited information including family not being involved with patient's life much, last time about 3 months ago they called to see how patient was doing but has not visited in several years. Patient has lived in nursing home for over 40 years. Patient continued to improve with supportive care and antibiotic treatment which was covering for community- acquired pneumonia with Rocephin and Doxy. MRSA nares was negative and Doxy was discontinued. Patient also had urine culture which showed Proteus mirabilis which was pansensitive. It was unsure if patient is having asymptomatic bacteriuria, however since patient is poor historian we will continue with treatment. Blood cultures were negative while in the hospital. Patient was discharged after improvement and recommended to continue with Keflex 500 mg 4 times a day to cover for bacterial pneumonia and for UTI. this medicine will be administered via G-tube in which she had tube feeds resumed while in the hospital. Patient was then discharged back to nurse staff home. #Acute hypoxic respiratory failure secondary to, improving, improving #RSV pneumonia, improving #Influenza A positive, on 05/19, improving #? Superimposed bacterial infection, CAP versus aspiration #Proteus mirabilis UTI #Euvolemic hypoosmolar hyponatremia #Hypochloridemia # Metabolic alkalosis with respiratory compensation, improving #History of seizure disorder. #History of developmental delay. #History of cerebral palsy on PEG tube. #History of quadriplegia. #History of blindness. #Hx of Deafness Discharge instructions: - Follow up with PCP after discharge - Continue Keflex 500mg four times a day for 5 days to complete course - Continue all other home medications - May take Mucinex DM for added mucolytic benefit - Return to ED if symptoms worsen Patient seen and care discussed with my senior resident, Dr. Egan, and my attending physician, Dr. Paige Magallanes, PGY-1 Time Spent with Patient Time attestation: Total time spent providing and/or coordinating discharge services: Time spent: Greater than 30 minutes Exam Vital Signs Temp Pulse Resp BP Pulse Ox O2 Del Method O2 Flow Rate 96.8 F 106 H 17 157/81 H 99 Nasal Cannula 2 05/23/24 08:00 05/23/24 08:00 05/23/24 08:00 05/23/24 08:00 05/23/24 08:00 05/23/24 08:00 05/23/24 08:00 Narrative Exam General: AAOx1?, Mouth breather, deaf, blind does not appear to be in any acute distress, sleeping, patient is in bottled up state with arms and feet close to body, chronically bedbound, quadriplegic HEENT: Moist mucous membranes, 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 Discharge Plan Plan Patient Disposition: Xfer Skilled Nsg Fac (SNF) Disposition Comment: Hospitalist to admit Patient condition on transfer: Stable Care Plan Goals: - Follow up with PCP after discharge - Continue Keflex 500mg four times a day for 5 days to complete course - Continue all other home medications - May take Mucinex DM for added mucolytic benefit - Return to ED if symptoms worsen Prescriptions/Referrals Prescriptions/Med Rec: New cephalexin 500 mg capsule 500 mg PO QID 5 Days Qty: 20 0RF Continued loratadine 10 mg Tablet 10 mg feeding tube QDAY polyethylene glycol 3350 [ClearLax] 17 gram powder in packet 17 g feeding tube PRN PRN (Reason: constipation) hydroxyzine HCl 10 mg/5 mL solution 10 mg PO QID PRN (Reason: itching) benzonatate 100 mg capsule 100 mg PO Q6H PRN (Reason: cough) Patient Comments: TAKE 1 CAPSULE BY MOUTH THREE TIMES A DAY NEEDED FOR COUGH phenytoin 50 mg Tablet,Chewable 50 mg G-tube BID phenobarbital 32.4 mg Tablet 32.4 mg feeding tube BID Referrals: No Primary/Family,Physician [Primary Care Provider] - Patient/Caregiver Discharge Instructions Discharge Activity: resume usual activities Print Language: Turkish Stand Alone Forms: Jessica Award Info., Patient Portal Info Letter Discharge Order Discharge Orders: Discharge (Routine); Ordered 05/23/24 Ordered By: Sina Egan Quality Discharge Quality Measures VTE prophylaxis (Lovenox) Attestestation MD Attestation I have examined the patient, reviewed labs and imaging findings, discussed the case with the resident(s), and reviewed entered orders. I agree with the plan of care as outlined in this note. Dr. Paige MD
--- NOTE | 2024-05-23 12:03 | PC.SS ---
Addendum entered by Eva Dailey 05/23/24 12:06: SS spoke to floor nurse who states patient was saturating 97% on room air. Staff from [facility] present at bedside. She states they can arrange for their own transportation. Original Note: Follow up note: Patient has d/c orders for today. SS spoke to [facility] avionics manager, Savannah, with update. Savannah prefers [facility] pharmacy on [address] for new medication. Staff also needs to know if patient will need new 02 for home. Relayed to floor nurse who will test patient for any 02 needs. [facility] wants patient sent home by ambulance. SS will schedule with [facility] for gurney transport.
[2024-05-23] MEDS: ALBUTEROL/IPRATROPIUM (Duoneb) RT SOL 3 ML NEBU INH (12:15)
--- NOTE | 2024-05-23 13:52 | PC.SS ---
Addendum entered by Eva Dailey 05/23/24 15:13: SS called to confirm transport with [facility]. [facility] transportation is assigned and will show up by 5p.m. Addendum entered by Eva Dailey 05/23/24 15:06: SS scheduled gurney transport through [facility], Ref# [id number] for tentative flower buncher or picker 5p.m. Original Note: Patient to d/c home. No d/c orders in place. Patient will need gurney transport.
--- NOTE | 2024-05-23 15:39 | PC.NURSE ---
made aware of BP: 145/100 no new orders.
--- NOTE | 2024-05-23 17:46 | PC.NURSE ---
Report called to Savannah, informed her that medical transport was enroute with patient. Savannah stated facility would be ready to receive patient when she arrived .
== END 2024-05-23 17:46 | disposition home or self-care (01) | DRG 193 ==
LOC: SERX 17:48 → SERHOLD 19:08 → S3SX 05-22 07:54
PROVIDERS: Student in an Organized Health Care Education/Training Program; Admitting Provider Student in an Organized Health Care Education/Training Program; Emergency Provider Emergency Medicine; Visit Provider Student in an Organized Health Care Education/Training Program
DX: J10.08 Influenza due to other identified influenza virus with other specified pneumonia (principal); J96.01 Acute respiratory failure with hypoxia; E87.1 Hypo-osmolality and hyponatremia; E87.3 Alkalosis; N39.0 Urinary tract infection, site not specified; J12.1 Respiratory syncytial virus pneumonia; I50.9 Heart failure, unspecified; R62.50 Unspecified lack of expected normal physiological development in childhood; G80.9 Cerebral palsy, unspecified; J45.909 Unspecified asthma, uncomplicated; G40.909 Epilepsy, unspecified, not intractable, without status epilepticus; H91.90 Unspecified hearing loss, unspecified ear; H54.7 Unspecified visual loss; Z93.1 Gastrostomy status; Z11.52 Encounter for screening for COVID-19; B96.4 Proteus (mirabilis) (morganii) as the cause of diseases classified elsewhere
CPT/HCPCS: 36415; 71045; 80053; 80061; 81001; 82803; 83036; 83605; 83735; 83880; 84100; 84145; 84443; 84484; 85025; 85610; 87040; 87077; 87081; 87086; 87186; 87205; 87634; 89220; 93225; 94640; 94644; A9270; G0378; J0696; J1650; J1940; J2470; J2543; J2919; J3490; J7050

== ENCOUNTER 2024-05-24 09:09 | Inpatient (IN) | payer MEDICARE, MEDICAID, SELFPAY ==
[2024-05-24] VITALS (16 sets, daily range): BP systolic 138–171; BP diastolic 86–115; PULSE 93–114; RESP 16–24; TEMP 36.2–36.7; O2SAT 91–100; BMI 28.3; BMI 39.6; BMI 35.1
--- NOTE | 2024-05-24 10:04 | PC.NURSE ---
Patient bib ambulance per staff at [facility] patient with SOB this am. Per EMS patient on neb tx on arrival with sat at 89% and ausculated left lung rhonchi, more than right. Patient with DD and nonverbal, no apparent distress noted, on 2l nc, with intermittent cough. Patient placed on pulse ox. Call light is within reach.
--- NOTE | 2024-05-24 10:05 | PD.EDSOB ---
ED SOB =RME/HPI General Chief Complaint: Shortness of Breath/Dyspnea Stated Complaint: SOB Time Seen by Provider: 05/24/24 10:03 Arrival date/time: 05/24/24 09:09 RME / HPI RME / HPI Narrative: 73 year old female with history of intellectual disability, cerebral palsy, epilepsy, quadriplegia, blindness, s/p PEG tube placement presents to the ED [facility] from [facility] for evaluation of shortness of breath today. Per medics, skilled nursing staff reported patient sounded very gurgly and appeared short of breath. Medics report patient was saturating 94% on 2L nasal cannula. Evidently was diagnosed with Influenza A on 05/19/2024 and was admitted here 05/21/2024 through 05/23/2024 for acute hypercapnic respiratory failure 2/2 to RSV pneumonia. Related Data Home Medications ?Medication ?Instructions ?Recorded ?Confirmed loratadine 10 mg tablet 10 mg feeding tube QDAY 10/01/21 05/22/24 phenobarbital 32.4 mg tablet 32.4 mg feeding tube BID 12/01/23 05/22/24 phenytoin 50 mg chewable tablet 50 mg G-tube BID 12/01/23 05/22/24 benzonatate 100 mg capsule 100 mg PO Q6H PRN cough 05/22/24 05/22/24 hydroxyzine HCl 10 mg/5 mL oral 10 mg PO QID PRN itching 05/22/24 05/22/24 solution polyethylene glycol 3350 17 gram 17 g feeding tube PRN PRN 05/22/24 05/22/24 oral powder packet (ClearLax) constipation Previous Rx's ?Medication ?Instructions ?Recorded cephalexin 500 mg capsule 500 mg PO QID Pneumonia 5 days #20 05/23/24 caps Allergies Allergy/AdvReac Type Severity Reaction Status Date / Time No Known Allergies Allergy Verified 05/24/24 09:46 Review of Systems Review of Systems ROS Unobtainable: unobtainable due to medical condition Past Medical History Past Medical History NEUROLOGIC: Positive Neurological Disorders, Seizures, Epilepsy and Cerebral Palsy RESPIRATORY: Positive Pneumonia GASTROINTESTINAL: Positive Gastrointestinal Disorders GENITOURINARY: Positive Genitourinary Disorders MUSCULOSKELETAL: Positive Musculoskeletal Disorders ENT: Positive Blind OTHER HISTORY: Positive Developmental Delay Social History SMOKING STATUS: Never smoker ED Exam Narrative Physical exam: GENERAL APPEARANCE: Patient is nonverbal, patient is blind and does not engage, chronically developmental delay. HEENT: NC, AT. MMM. Oropharynx clear. NECK: Supple without lymphadenopathy. No stiffness or restricted ROM. HEART: Normal rate and regular rhythm, normal S1/S1, no m/r/g LUNGS: Wheezing bilaterally, R>L. Moving air well. No crackles are heard. ABDOMEN: Soft, nontender, nondistended with good bowel sounds heard. EXTREMITIES: Without cyanosis, clubbing or edema. NEUROLOGICAL: Patient is nonverbal, patient is blind and does not engage, chronically developmental delay Skin: Warm and dry without any rash. Course Course Course Narrative: chest xray ordered to help determine etiology of shortness of breath. Quality Measures none Orders Category Date Time Status Admit to Inpatient Status Routine Admission 05/24/24 17:43 Active Patient Condition Routine Admission 05/24/24 17:43 Ordered Continuous Pulse Oximetry NOW Care 05/24/24 17:43 Active Isolation Precaution QSHIFT Care 05/24/24 17:39 Active Notify provider NEEDED Care 05/24/24 17:43 Active Obtain weight X1 Care 05/24/24 17:43 Active SVN NEEDED Care 05/24/24 17:50 Active Vital Signs, Non-Routine Q4H Care 05/24/24 17:45 Ordered Vital Signs, Non-Routine Q4H Care 05/24/24 21:45 Ordered Consult to Infectious Diseases Routine Cons 05/24/24 17:49 Ordered Consult to Pulmonology Routine Cons 05/24/24 17:[address] chest wo con Stat Exams 05/24/24 16:42 Taken XR chest 1V Stat Exams 05/24/24 10:05 Completed Blood Culture (Lab) Stat Lab 05/24/24 11:00 Received CBC Stat Lab 05/24/24 11:00 Completed CMP [Comprehensive Metabolic Panel] Stat Lab 05/24/24 11:00 Completed Cult AFB Sendout- Sputum* Stat Lab 05/24/24 17:50 Ordered Lactate (Lactic Acid) Stat Lab 05/24/24 11:00 Completed Magnesium AM DRAW Lab 05/25/24 05:00 Ordered Magnesium AM DRAW Lab 05/26/24 05:00 Ordered Magnesium AM DRAW Lab 05/27/24 05:00 Ordered Phosphorous AM DRAW Lab 05/25/24 05:00 Ordered Procalcitonin Stat Lab 05/24/24 11:00 Completed Renal Function Panel AM DRAW Lab 05/25/24 05:00 Ordered Renal Function Panel AM DRAW Lab 05/26/24 05:00 Ordered Renal Function Panel AM DRAW Lab 05/27/24 05:00 Ordered Troponin I Stat Lab 05/24/24 11:00 Completed ALBUTEROL RT 0.5ml [Proventil Rt 0.5ml] Med 05/24/24 10:04 Discontinued 10 mg INH X1 ONE ALBUTEROL RT 3ml [Proventil Rt 3ml] Med 05/24/24 13:48 Discontinued 2.5 mg INH X1 ONE Acetaminophen Tab [Tylenol Tab] Med 05/24/24 17:43 Ordered 1,000 mg PO Q6H PRN Enoxaparin [Lovenox] Med 05/25/24 09:00 Ordered 40 mg SC QDAY MethylPREDNISolone.* [SoluMEDROL Inj] Med 05/24/24 10:04 Discontinued 125 mg IVP X1 ONE Ondansetron Inj [Zofran Inj] Med 05/24/24 17:43 Ordered 4 mg IV Q6H PRN Sodium Chloride Rt Rylee 0.9% [NS Rt Rylee 0.9%] Med 05/24/24 10:04 Active 3 ml INH PRN PRN Sodium Chloride Rt Rylee 10% [NS Rt Rylee 10%] Med 05/24/24 17:49 Once 5 ml INH X1 ONE Code Status Routine Oth 05/24/24 17:43 Ordered Oxygen Delivery NOW RT 05/24/24 17:45 Active Vital Signs Vital signs: Vital Signs Temperature 97.1 F 05/24/24 09:17 Pulse Rate 101 H 05/24/24 09:17 Respiratory Rate 20 05/24/24 09:17 Blood Pressure 138/88 H 05/24/24 09:17 Pulse Oximetry (%) 91 L 05/24/24 09:17 Oxygen Delivery Method Nasal Cannula 05/24/24 09:17 Oxygen Flow Rate 2 05/24/24 09:17 Shortness of Breath / Dyspnea MDM Narrative MDM Narrative:: Ava Figueroa am scribing for and in the presence of Dr. Burnette. Patient data External records reviewed:: [facility] previous records (I reviewed admission from 05/21/2024 through 05/23/2024), EMS form and [facility] records (I reviewed hx and medication list from skilled nursing ) Clinical information provided by:: EMS Social determinants that could affect healthcare access:: housing (skilled nursing resident) Patient has the following chronic illnesses:: intellectual disability, cerebral palsy, epilepsy, quadriplegia, blindness, s/p PEG tube placement How is presenting disease/condition affected by chronic disease/condition?: exacerbated by Evaluation data The following diagnostics were reviewed and interpreted by me:: lab results and radiology exam(s) Lab and/or radiology exams considered but not ordered:: None Interpretation Summary: Ordering Physician: Fab Burnette MD Date of Service: 05/24/24 Procedure(s): XR chest 1V Accession Number(s): [id number] cc: Fab Burnette MD; Howard Villanueva MD~ Examination: AP chest single view Technique one AP portable semiupright chest single view Exam date and time: May 24, 2024 1021 hours Comparison May 21, 2024 INDICATIONS: Shortness of breath today. FINDINGS: Mild to moderate CHF Mild to moderate enlargement left ventricle. Prominent vascular congestion. Perihilar basilar edema. Suspicious for 3 cm cavitary lesion right upper lobe IMPRESSION: Mild to moderate CHF Recommend CT chest without contrast follow-up to confirm 3 cm cavitary lesion right upper lobe Dictated By:Howard Villanueva MD Signed By:<Electronically signed by Howard Villanueva MD in OV>05/24/24 1035 Medications / Prescriptions Medications or Prescriptions considered but not ordered:: None Medication administrations:: Medication Administration History Sodium Chloride (Sodium Chloride Rt Rylee 0.9% 3 Ml Nebu) 3 ml INH PRN PRN PRN Reason: SOLN Stop: 06/23/24 10:03 Discontinued Medications Albuterol (Albuterol Rt 2.5 Mg/0.5 Ml Nebu) 10 mg INH X1 ONE Stop: 05/24/24 10:05 Last Admin: 05/24/24 10:49 Dose: 10 mg Documented By: NEIL Albuterol (Albuterol Rt 2.5 Mg/3 Ml Nebu) 2.5 mg INH X1 ONE Stop: 05/24/24 13:49 Last Admin: 05/24/24 13:59 Dose: 2.5 mg Documented By: NEIL Methylprednisolone Sodium Succinate (Methylprednisolone Sod Succ 62.5 Mg/Ml 2ml Vial) 125 mg IVP X1 ONE Stop: 05/24/24 10:05 Last Admin: 05/24/24 11:09 Dose: 125 mg Documented By: ALEXA See above Consultations Consultation(s) initiated? (list below): Yes Consultation #1 (Physician, Specialty, Details): I spoke with hospitalist team working with Dr. Gibson. Discussed patients PMHx, HPI, ED course, exam findings, labs, and radiology results. The hospitalist team will come evaluate the patient in the ED. Consultation #2 (Physician, Specialty, Details): Hospitalist team requesting CT of chest 2/2 CXR findings prior to admission. Consultation #3 (Physician, Specialty, Details): Hospitalist team has accepted patient for admission. Time: 17:40 Diagnosis Shortness of Breath Differential Diagnosis: acute exacerbation of chronic obstructive airways disease, congestive heart failure and community acquired pneumonia Most likely diagnosis given after review of the tests above:: COPD exacerbation Bronchiolitis Admission Indicated Admission indicated?: indicated Admission Request Was there a request for admission?: Yes Admission Attestation Admission request attestation: Discussed case with [] from Hospitalist service regarding admission. Discussed patients ED course, exam findings, labs, and radiology results. The Hospitalist [agrees,declines] to accept the patient for admission. Disposition Plan Disposition Plan: Admit Discharge Plan Plan Patient Disposition: Admit Acute Care w/in Hospital Prescriptions/Referrals Prescriptions/Med Rec: No Action loratadine 10 mg Tablet 10 mg feeding tube QDAY polyethylene glycol 3350 [ClearLax] 17 gram powder in packet 17 g feeding tube PRN PRN (Reason: constipation) hydroxyzine HCl 10 mg/5 mL solution 10 mg PO QID PRN (Reason: itching) benzonatate 100 mg capsule 100 mg PO Q6H PRN (Reason: cough) Patient Comments: TAKE 1 CAPSULE BY MOUTH THREE TIMES A DAY NEEDED FOR COUGH cephalexin 500 mg capsule 500 mg PO QID 5 Days Qty: 20 0RF phenytoin 50 mg Tablet,Chewable 50 mg G-tube BID phenobarbital 32.4 mg Tablet 32.4 mg feeding tube BID Referrals: No Primary/Family,Physician [Primary Care Provider] - In 1 week Problem List Clinical Impression: COPD exacerbation, Bronchiolitis Patient/Caregiver Discharge Instructions Print Language: Sinhala Stand Alone Forms: Jessica Award Info., Patient Portal Info Letter
[2024-05-24] MEDS: ALBUTEROL RT 2.5 MG/0.5 ML NEBU 10 MG INH (10:49)
[2024-05-24] MEDS: MethylPREDNISolone SOD SUCC 62.5 MG/ML 2ML VIAL 125 MG IVP (11:09)
[2024-05-24 11:17] LABS: Lactate (Lactic Acid) 1.2 mMol/L (0.4-2.0)
[2024-05-24 11:18] LABS: Basophils % (Auto) 1 % (0-2.5); Eosinophils # (Auto) 0.2 Thou/mm3 (0.0-0.5); Eosinophils % (Auto) 3 % (0-10); Hematocrit 39.6 % (36.0-46.0); Hemoglobin 13.7 g/dL (12.0-16.0); Immature Granulocytes % (Auto) 0 % (0-0); Immature Granulocytes Auto 0.01 Thou/mm3 (0.00-0.00); Lymphocytes # (Auto) 2.3 Thou/mm3 (1.0-4.8); Lymphocytes % (Auto) 35 % (10-50); Mean Corpuscular HGB Conc 34.6 g/dl (31.0-37.0); Mean Corpuscular Hemoglobin 32.2 pg (25.0-35.0); Mean Corpuscular Volume 93 fL (80-100); Monocytes % (Auto) 15 % (0-12); Neutrophils # (Auto) 3.1 Thou/mm3 (1.8-7.7); Neutrophils % (Auto) 47 % (37-80); Nucleated Red Blood Cell % 0 /100 WBC (0); Platelet Count 219 Thou/mm3 (140-440); RDW Standard Deviation 45.4 fL (36.4-46.3); Red Blood Count 4.25 Miln/mm3 (4.00-5.20); White Blood Count 6.7 Thou/mm3 (3.6-11.0)
[2024-05-24 11:55] LABS: Alanine Aminotransferase 36 U/L (10-49); Albumin, Serum 3.7 gm/dL (3.4-4.8); Albumin/Globulin Ratio 1.1 (1.2-2.2); Alkaline Phosphatase 208 U/L (46-116); Anion Gap 8 (7-16); Aspartate Amino Transferase 34 U/L (0-34); BUN/Creatinine Ratio 60 Ratio (12-20); Bilirubin,Total 0.2 mg/dL (0.3-1.2); Blood Urea Nitrogen 24 mg/dL (9-23); Calcium (Corrected) 9.2 mg/dL (8.5-10.1); Carbon Dioxide 27.1 mMol/L (20.0-31.0); Chloride 99 mMol/L (98-107); Creatinine (Component) 0.4 mg/dL (0.6-1.3); Estimated Creatinine Clearance 91.1 mL/min (>60); Globulin 3.5 gm/dL (2.3-3.5); Glucose 97 mg/dL (74-106); Osmolality,Calculated 272 (275-295); Procalcitonin 0.12 ng/ml (0.0-0.49); Sodium 134 mMol/L (136-145); Total Protein 7.2 gm/dL (5.7-8.2); Troponin I 0.021 ng/mL (0.0-0.045); eGFR > 60 See Note
--- NOTE | 2024-05-24 12:17 | PC.NURSE ---
Pt. laying in bed in room 12, receiving a breathing treatment, pt. tolerating well. Pt. coughing intermittently.
--- NOTE | 2024-05-24 12:24 | PC.NURSE ---
Pt. will open her eyes, pt. non verbal at this time, pt. has a purple/red what appears to be a jen to right eye and right forehead.
[2024-05-24] MEDS: ALBUTEROL RT 2.5 MG/3 ML NEBU INH (13:59)
--- NOTE | 2024-05-24 14:19 | PC.NURSE ---
Elsy care advocate from [facility] [phone], here to see pt. wanted update, update given. Elsy states she will take pt.'s clothes home.
--- NOTE | 2024-05-24 16:42 | XR_ITS ---
Examination: CT chest, without intravenous contrast. Sagittal and coronal 2-D reconstructions. Exam date and time: May 24, 2024 1711 hrs. Indications: 3 cm cavitary lesion in the right upper lobe on chest x-ray today, shortness of breath today CTDI:vol (mGy) 14.2 DLP: (mGycm) 441 Technique: Multiple 3.0 mm axial sections of the chest to been obtained. Bone and lung density settings are obtained. Sagittal and coronal 2-D reconstructions have been obtained. Low dose protocols were performed. One or more of the following dose reduction techniques were used; automated exposure control, adjustment of the mA and/or KV according to patient size, use of iterative reconstruction technique. Findings: No thoracic aortic aneurysmal dilatation Pulmonary artery segments are not enlarged Mild prominence of ventricle No paratracheal tracheobronchial or bronchopulmonary adenopathy Dilated bronchi in the upper lobe on the right Septated irregular cavitary lesion in the right upper lobe, 6.4 cm in transverse dimension Pneumonia at the left base and in the lingular segment Mild pneumonia right base Trace pericardial effusion No focal liver or splenic lesions Contracted gallbladder No hydronephrosis Severe thoracic dextroscoliosis Impression: Septated irregular cavitary lesion in the right upper lobe, 6.4 cm in transverse dimension Bronchiectasis right upper lobe Significant left base and lingular segment left upper lobe pneumonia Differential would include tuberculosis
--- NOTE | 2024-05-24 17:29 | PC.NURSE ---
Pt. back from CT to room 12.
--- NOTE | 2024-05-24 17:52 | PD.RESHP ---
Documentation for date of: 05/24/24 HPI History of Present Illness History of present illness: History of present illness: HPI is limited because patient is poor historian and is deaf. Most of history obtained through forms and chart review Daria is a 73 y/o female with PMHx of developmentally delayed, cerebral palsy, epilepsy, quadriplegic, cerebral palsy, blind, deaf, chronic PEG who comes from facility for an evaluation of hypoxia. Spoke with care at home with reported that patient was not able to get an oxygen level above 89 despite breathing treatments. They said that she usually saturates in the 95's at home. Of note patient was recently discharged for RSV pneumonia and had also tested positive for influenza A on the , however was not given Tamiflu. ED Course: Pt came to the ED with a temperature of 97.1, heart rate of 101, respiratory rate of 20, blood pressure 130/88, and was hypoxic and was put on 6 L nasal cannula. She was worked up was found to have a sodium of 134, potassium of 4, bicarb of 27, BUN/creatinine of 24 and 0.4 respectively, white count of 6.7, hemoglobin 13.7, Pro-[place] unremarkable. Checks x-ray shows possible cavitary lesion right upper lobe, in addition to pneumonia. EKG showed sinus tachycardia. Patient was given Solu-Medrol 125, albuterol [address] without contrast was ordered and preliminary look, pending read, appears to show some cavitary lesion in the right lobe of lung. Patient was then admitted for further workup of cavitary lesion and TB rule out. 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 Review of Systems Review of Systems Narrative Review of Systems: 12 point ROS is limited due to patient being poor historian Exam Vital Signs Temp Pulse Resp BP Pulse Ox O2 Del Method O2 Flow Rate 98.0 F 112 H 20 152/115 H 95 Nasal Cannula 4 05/24/24 16:08 05/24/24 16:08 05/24/24 16:08 05/24/24 16:05/24/24 16:05/24/24 16:05/24/24 16:08 Narrative Exam General: AAOx1?, Mouth breather, deaf, blind does not appear to be in any acute distress, sleeping, patient is in bottled up state with arms and feet close to body, chronically bedbound, quadriplegic HEENT: Moist mucous membranes, 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 Results: Labs 05/24/24 11:00 05/25/24 05:51 Labs: Short CBC 05/24/24 Range/Units 11:00 WBC 6.7 (3.6-11.0) Thou/mm3 Hgb 13.7 (12.0-16.0) g/dL Hct 39.6 (36.0-46.0) % Plt Count 219 (140-440) Thou/mm3 BMP 05/24/24 11:00 Sodium 134 L Potassium 4.0 Chloride 99 Carbon Dioxide 27.1 BUN 24 H Creatinine 0.4 L Glucose 97 Calcium 9.0 Cardiac Enzymes 05/24/24 Range/Units 11:00 Troponin I 0.021 (0.0-0.045) ng/mL Liver Function 05/24/24 Range/Units 11:00 Total Bilirubin 0.2 L (0.3-1.2) mg/dL AST 34 (0-34) U/L ALT 36 (10-49) U/L Alkaline Phosphatase 208 H (46-116) U/L Albumin 3.7 (3.4-4.8) gm/dL Quality Measures Quality Measures none Advance care planning discussed with:: patient Medications Home Medications and Allergies Home Medications ?Medication ?Instructions ?Recorded ?Confirmed ?Type loratadine 10 mg tablet 10 mg feeding tube QDAY 10/01/21 05/22/24 History phenobarbital 32.4 mg tablet 32.4 mg feeding tube BID 12/01/23 05/22/24 History phenytoin 50 mg chewable tablet 50 mg G-tube BID 12/01/23 05/22/24 History benzonatate 100 mg capsule 100 mg PO Q6H PRN cough 05/22/24 05/22/24 History hydroxyzine HCl 10 mg/5 mL oral 10 mg PO QID PRN itching 05/22/24 05/22/24 History solution polyethylene glycol 3350 17 gram 17 g feeding tube PRN PRN 05/22/24 05/22/24 History oral powder packet (ClearLax) constipation Allergies Allergy/AdvReac Type Severity Reaction Status Date / Time No Known Allergies Allergy Verified 05/24/24 09:46 Visit Medications Acetaminophen (Acetaminophen 325 Mg Tablet) 1,000 mg PO Q6H PRN PRN Reason: Fever >100 or pain 1-3 Stop: 06/23/24 17:42 Enoxaparin Sodium (Enoxaparin Sod Inj 40 Mg/0.4 Ml Syringe) 40 mg SC QDAY CARMITA Stop: 06/08/24 08:59 Ondansetron HCl (Ondansetron Inj 2 Mg/Ml Inj 2 Ml) 4 mg IV Q6H PRN; Protocol PRN Reason: NAUSEA OR VOMITING Stop: 06/23/24 17:42 Sodium Chloride (Sodium Chloride Rt Rylee 0.9% 3 Ml Nebu) 3 ml INH PRN PRN PRN Reason: SOLN Stop: 06/23/24 10:03 Discontinued Medications Albuterol (Albuterol Rt 2.5 Mg/0.5 Ml Nebu) 10 mg INH X1 ONE Stop: 05/24/24 10:05 Last Admin: 05/24/24 10:49 Dose: 10 mg Albuterol (Albuterol Rt 2.5 Mg/3 Ml Nebu) 2.5 mg INH X1 ONE Stop: 05/24/24 13:49 Last Admin: 05/24/24 13:59 Dose: 2.5 mg Methylprednisolone Sodium Succinate (Methylprednisolone Sod Succ 62.5 Mg/Ml 2ml Vial) 125 mg IVP X1 ONE Stop: 05/24/24 10:05 Last Admin: 05/24/24 11:09 Dose: 125 mg Sodium Chloride (Sodium Chloride Rt 10% 15 Ml Nebu) 5 ml INH X1 ONE Stop: 05/24/24 17:50 Assessment & Plan Plan Assessment Daria is a 73 y/o female with PMHx of developmentally delayed, cerebral palsy, epilepsy, quadriplegic, cerebral palsy, blind, deaf, chronic PEG who is currently admitted for TB rule out and evaluation of cavitary lesion #TB rule out #Cavitary lesion, RUL, 6.2 cm #Bronchiectasis, RUL DDx: Cocci, TB, bleb, abscess, aspergillus Seen initially on chest x-ray in the right lobe Unlikely abscess as patient does not have fever History is limited so unsure if patient has been exposed to cocci or TB CT chest shows: Septated irregular cavitary lesion in the right upper lobe, 6.4 cm in transverse dimension Bronchiectasis right upper lobe TB needs to be ruled out at this point More likely fungal type of process, will start on broad antifungal Plan: ? Pulmonology consulted, appreciate recs ? Infectious disease consulted, appreciate recs ? AFBs x 3 ? Cocci serologies ? Aspergillus serum ? Fluconazole 400 mg ? Airborne precautions #Acute hypoxic respiratory failure secondary to #RSV pneumonia, on 05/21 #Influenza A positive, on 05/19 #Superimposed bacterial infection, CAP versus aspiration No sepsis alert initiated Pt has recently come in for influenza A and RSV pneumonia Patient does sound congested on physical exam Was given Solu-Medrol 125 in the ED Chest CT shows: Significant left base and lingular segment left upper lobe pneumonia Plan: ? Doxy 100 mg twice daily IV and Rocephin 1 g IV ? DuoNebs scheduled every 6 hours ? Frequent suctioning ? Oxygen, wean down as tolerated ? Tylenol for fever ? MRSA screen #Euvolemic hypoosmolar hyponatremia #Hypochloridemia Osmolarity 272 Sodium 134 Plan: ? Fluid restriction ? Trend with CMP #History of seizure disorder. Chronic Plan: ? Resumed phenobarbital 32.43 times a day ? Resumed home phenytoin 50 mg twice a day #History of developmental delay. #History of cerebral palsy on PEG tube. #History of quadriplegia. #History of blindness. #Hx of Deafness Chronic Plan: ? Referral to dietitian, will resume feeds after recommendations #Health Maintenance Disposition: Medsurg, TB rule out DVT prophylaxis: Lovenox GI prophylaxis: Protonix Diet: Jevity 1.2, 60 cc/hr CODE STATUS: Full code Patient seen and care discussed with my senior resident, Dr. Egan, and my attending physician, Dr. Paige Magallanes, PGY-1 Patient examined and case discussed with the team including attending physician. Note reviewed, I agree with the care plan as documented. Ms. Bautista is a 73-year-old female who is chronically bedbound, nonverbal at baseline, chronic PEG tube and quadriplegia with history of seizure disorder secondary to cerebral palsy, who was discharged 1 day ago after being treated for influenza and RSV pneumonia. She was sent back from nursing facility for persistent hypoxia, however on repeat chest x-ray in the ED she was found to have a right upper lobe cavitary lesion. Given the new findings, CT chest was ordered for further evaluation, which confirmed a septated cavitary lesion with surrounding edema. Patient is admitted for TB and cocci rule out. Infectious disease Dr Hawk is consulted for further recommendations. Plan: Started on IV doxycycline, Rocephin and fluconazole for now until further ID recommendations - Sina Egan MD, PGY 2 Attending Provider Attestation/Addendum I have examined the patient, reviewed labs and imaging findings, discussed the case with the resident(s), and reviewed entered orders. I agree with the plan of care as outlined in this note. Dr. Paige MD
[2024-05-24] MEDS: ALBUTEROL/IPRATROPIUM (Duoneb) RT SOL 3 ML NEBU INH (19:11)
[2024-05-24] MEDS: SODIUM CHLORIDE RT 10% 15 ML NEBU 5 ML INH (19:11)
[2024-05-24] MEDS: PHENYTOIN 25 MG/ML 50 MG GT (19:37)
[2024-05-24] MEDS: FLUCONAZOLE SUSP 40 MG/ML ML 400 MG GT (19:40)
[2024-05-24 19:45] LABS: Cult AFB Sendout- Sputum* See Sep Rpt
[2024-05-24] MEDS: cefTRIAXone 1,000 MG in SODIUM CHLORIDE 0.9% (Popper) 50 ML 100 MG IV (19:47)
[2024-05-24] MEDS: PHENobarbitaL 32.4 MG TABLET GT (21:21)
[2024-05-24] MEDS: DOXYCYCLINE INJ 100 MG in SODIUM CHLORIDE 0.9% (POP) 100 ML IV (21:21)
[2024-05-25] VITALS (10 sets, daily range): BP systolic 136–180; BP diastolic 73–100; PULSE 86–109; RESP 18–20; TEMP 36.2–36.6; O2SAT 92–99; BMI 21.0
[2024-05-25] MEDS: ALBUTEROL/IPRATROPIUM (Duoneb) RT SOL 3 ML NEBU INH ×4 (01:00→18:13)
[2024-05-25 07:10] LABS: Albumin, Serum 3.4 gm/dL (3.4-4.8); Anion Gap 8 (7-16); BUN/Creatinine Ratio 53 Ratio (12-20); Blood Urea Nitrogen 16 mg/dL (9-23); Calcium 8.7 mg/dL (8.3-10.6); Calcium (Corrected) 9.2 mg/dL (8.5-10.1); Carbon Dioxide 26.1 mMol/L (20.0-31.0); Chloride 100 mMol/L (98-107); Creatinine (Component) 0.3 mg/dL (0.6-1.3); Estimated Creatinine Clearance 114.4 mL/min (>60); Glucose 116 mg/dL (74-106); Magnesium 1.8 mg/dL (1.6-2.6); Osmolality,Calculated 270 (275-295); Phosphorous 2.6 mg/dL (2.4-5.1); Potassium 3.9 mMol/L (3.4-5.1); Sodium 134 mMol/L (136-145); eGFR > 60 See Note
[2024-05-25] MEDS: BUDESONIDE RT 0.25 MG/2 ML NEBU INH ×2 (07:14→18:13)
--- NOTE | 2024-05-25 08:47 | PC.DIETICIAN ---
Nutrition prescription: 1) Jevity 1.2 at 20 ml/hr via PEG tube by pump. Advance 10 ml every 8 hrs to goal rate of 40 ml/hr x 24 hrs. 2) Recommend: Noel 1 pkt BID mixed with 6-8 oz water via PEG tube (unflavored). 3) Recommend: Vitamin C 250 mg BID, zinc sulfate 220 mg once daily, and nephro-vinay.
[2024-05-25] MEDS: FLUCONAZOLE SUSP 40 MG/ML ML 400 MG GT (09:42)
[2024-05-25] MEDS: PHENYTOIN 100 MG/4 ML UDC 50 MG GT ×2 (09:44→20:34)
[2024-05-25] MEDS: DOXYCYCLINE INJ 100 MG in SODIUM CHLORIDE 0.9% (POP) 100 ML IV ×2 (09:45→20:37)
[2024-05-25] MEDS: ENOXAPARIN SOD INJ 40 MG/0.4 ML SYRINGE SC (09:45)
[2024-05-25] MEDS: PHENobarbitaL 32.4 MG TABLET GT ×2 (09:46→20:34)
[2024-05-25] MEDS: PANTOPRAZOLE INJ 40 MG VIAL IV (09:46)
[2024-05-25] MEDS: cefTRIAXone 1,000 MG in SODIUM CHLORIDE 0.9% (Popper) 50 ML 100 MG IV (09:46)
[2024-05-25 10:12] LABS: Basophils % (Auto) 0 % (0-2.5); Eosinophils # (Auto) 0.1 Thou/mm3 (0.0-0.5); Eosinophils % (Auto) 1 % (0-10); Hematocrit 36.8 % (36.0-46.0); Hemoglobin 12.6 g/dL (12.0-16.0); Immature Granulocytes % (Auto) 0 % (0-0); Immature Granulocytes Auto 0.02 Thou/mm3 (0.00-0.00); Lymphocytes # (Auto) 1.8 Thou/mm3 (1.0-4.8); Lymphocytes % (Auto) 24 % (10-50); Mean Corpuscular HGB Conc 34.2 g/dl (31.0-37.0); Mean Corpuscular Volume 93 fL (80-100); Monocytes % (Auto) 13 % (0-12); Neutrophils # (Auto) 4.7 Thou/mm3 (1.8-7.7); Neutrophils % (Auto) 62 % (37-80); Nucleated Red Blood Cell % 0 /100 WBC (0); Platelet Count 227 Thou/mm3 (140-440); RDW Standard Deviation 45.2 fL (36.4-46.3); Red Blood Count 3.94 Miln/mm3 (4.00-5.20); White Blood Count 7.6 Thou/mm3 (3.6-11.0)
--- NOTE | 2024-05-25 11:01 | ESPR_ITS ---
Documentation for date of: 05/25/24 Subjective Subjective Interval history: 05/25/2024: Patient examined at bedside today. No acute overnight events. Patient appears to be continuing with mouth breathing, still sounds congested. Pending other AFB samples. No other complaints at this time. White count 7.6, hemoglobin 12.6, BUN/creatinine 16 and 0.3, sodium 134, potassium 2.9, magnesium 1.8. 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 Objective Labs 05/26/24 05:40 05/26/24 05:40 Labs: Laboratory Results - last 24 hr 05/24/24 05/25/24 11:00 05:51 WBC 6.7 7.6 RBC 4.25 3.94 L Hgb 13.7 12.6 Hct 39.6 36.8 MCV 93 93 MCH 32.2 32.0 MCHC 34.6 34.2 RDW Std Deviation 45.4 45.2 Plt Count 219 227 Neut % (Auto) 47 62 Lymph % (Auto) 35 24 [place] % (Auto) 15 H 13 H Eos % (Auto) 3 1 Baso % (Auto) 1 0 Neut # (Auto) 3.1 4.7 Lymph # (Auto) 2.3 1.8 [place] # (Auto) 1.0 H 1.0 H Eos # (Auto) 0.2 0.1 Baso # (Auto) 0.0 0.0 Immature Gran # (Auto) 0.01 H 0.02 H Absolute Nucleated RBC 0.00 0.00 Immature Gran % 0 0 Nucleated RBC % 0 0 Sodium 134 L 134 L Potassium 4.0 3.9 Chloride 99 100 Carbon Dioxide 27.1 26.1 Anion Gap 8 8 BUN 24 H 16 Creatinine 0.4 L 0.3 L Estim Creat Clear Calc 91.1 114.4 eGFR > 60 > 60 BUN/Creatinine Ratio 60 H 53 H Glucose 97 116 H Calculated Osmolality 272 L 270 L Lactic Acid 1.2 Calcium 9.0 8.7 Corrected Calcium 9.2 9.2 Phosphorus 2.6 Magnesium 1.8 Total Bilirubin 0.2 L AST 34 ALT 36 Alkaline Phosphatase 208 H Troponin I 0.021 Total Protein 7.2 Albumin 3.7 3.4 Globulin 3.5 Albumin/Globulin Ratio 1.1 L Procalcitonin 0.12 Quality Measures Quality Measures none Advance care planning discussed with:: patient and other (knot cutter ) Assessment & Plan Assessment Current Active Medications: Generic Name Dose Route Start Last Admin Trade Name Freq PRN Reason Stop Dose Admin Acetaminophen 1,000 mg 05/24/24 17:43 Acetaminophen 325 Mg Tablet PO 06/23/24 17:42 Q6H PRN Fever >100 or pain 1-3 Albuterol/Ipratropium 3 ml 05/24/24 19:00 05/25/24 07:14 Albuterol/Ipratropium (Duoneb) Rt Rylee 3 Ml Nebu INH 06/23/24 18:59 3 ml Q6HRRT CARMITA Administration Budesonide 0.25 mg 05/24/24 19:00 05/25/24 07:14 Budesonide Rt 0.25 Mg/2 Ml Nebu INH 06/23/24 18:59 0.25 mg BIDRT CARMITA Administration Enoxaparin Sodium 40 mg 05/25/24 09:00 05/25/24 09:45 Enoxaparin Sod Inj 40 Mg/0.4 Ml Syringe SC 06/08/24 08:59 40 mg QDAY CARMITA Administration Fluconazole 400 mg 05/24/24 18:30 05/25/24 09:42 Fluconazole Susp 40 Mg/Ml Ml GT 05/31/24 18:29 400 mg QDAY CARMITA Administration Guaifenesin/Dextromethorphan 1 each 05/24/24 18:30 Guaifenesin/Dm Tablet GT 06/23/24 18:29 QDAY PRN COUGH Ceftriaxone Sodium 1,000 mg/ 50 mls @ 100 mls/hr 05/24/24 18:15 05/25/24 09:46 Sodium Chloride IV 05/31/24 18:14 100 mls/hr QDAY CARMITA Administration Doxycycline Hyclate 100 mg/ 100 mls @ 100 mls/hr 05/24/24 21:00 05/25/24 09:45 Sodium Chloride IV 05/31/24 20:59 100 mls/hr BID CARMITA Administration Ondansetron HCl 4 mg 05/24/24 17:43 Ondansetron Inj 2 Mg/Ml Inj 2 Ml IV 06/23/24 17:42 Q6H PRN NAUSEA OR VOMITING Protocol Pantoprazole Sodium 40 mg 05/25/24 09:00 05/25/24 09:46 Pantoprazole Inj 40 Mg Vial IV 06/24/24 08:59 40 mg QDAY CARMITA Administration Phenobarbital 32.4 mg 05/24/24 21:00 05/25/24 09:46 Phenobarbital 32.4 Mg Tablet GT 06/07/24 20:59 32.4 mg BID CARMITA Administration Phenytoin 50 mg 05/25/24 09:30 05/25/24 09:44 Phenytoin 100 Mg/4 Ml Udc GT 06/23/24 20:59 50 mg BID CARMITA Administration Sodium Chloride 3 ml 05/24/24 10:04 Sodium Chloride Rt Rylee 0.9% 3 Ml Nebu INH 06/23/24 10:03 PRN PRN SOLN Plan Assessment Daria is a 73 y/o female with PMHx of developmentally delayed, cerebral palsy, epilepsy, quadriplegic, cerebral palsy, blind, deaf, chronic PEG who is currently admitted for TB rule out and evaluation of cavitary lesion #TB rule out #Cavitary lesion, RUL, 6.2 cm #Chronic aspiration pneumonia versus chronic TB versus cocci #Bronchiectasis, RUL DDx: Cocci, TB, bleb, abscess, aspergillus Seen initially on chest x-ray in the right lobe Unlikely abscess as patient does not have fever History is limited so unsure if patient has been exposed to cocci or TB Risk factors, vaccine history, with history all limited due to patient being poor historian No history of immunocompromise documented CT chest shows: Septated irregular cavitary lesion in the right upper lobe, 6.4 cm in transverse dimension Bronchiectasis right upper lobe Spoke with slice plug cutter operator helper, CT imaging looks like possible chronic aspiration or previous TB for cocci, will need to further workup Patient is a mouth breather and has been admitted for previous aspiration so there is a risk factor for chronic aspiration however will further workup Considering how patient looks at this time, will discontinue blood antifungal at this time Plan: ? Pulmonology consulted, appreciate recs ? Infectious disease consulted, appreciate recs ? AFBs x 3 ? Cocci serologies ? Aspergillus serum ? Discontinue fluconazole at this time ? Airborne precautions ? QuantiFERON #Acute hypoxic respiratory failure secondary to #RSV pneumonia, on 05/21 #Influenza A positive, on 05/19 #Superimposed bacterial infection, CAP versus aspiration No sepsis alert initiated Pt has recently come in for influenza A and RSV pneumonia Patient does sound congested on physical exam Was given Solu-Medrol 125 in the ED Chest CT shows: Significant left base and lingular segment left upper lobe pneumonia Plan: ? Doxy 100 mg twice daily IV and Rocephin 1 g IV ? DuoNebs scheduled every 6 hours ? Frequent suctioning ? Oxygen, wean down as tolerated ? Tylenol for fever ? Follow-up MRSA screen #Euvolemic hypoosmolar hyponatremia #Hypochloridemia Osmolarity 270 Sodium 134 Plan: ? Fluid restriction ? Trend with CMP #History of seizure disorder. Chronic Plan: ? Continue home phenobarbital 32.43 times a day ? Continue home phenytoin 50 mg twice a day #History of developmental delay. #History of cerebral palsy on PEG tube. #History of quadriplegia. #History of blindness. #Hx of Deafness Chronic RD recommendations: 1) Jevity 1.2 at 20 ml/hr via PEG tube by pump. Advance 10 ml every 8 hrs to goal rate of 40 ml/hr x 24 hrs. 2) Recommend: Noel 1 pkt BID mixed with 6-8 oz water via PEG tube (unflavored). 3) Recommend: Vitamin C 250 mg BID, zinc sulfate 220 mg once daily, and nephro- vinay. Plan: ? Continue with Jevity 1.2 tube feeds as above ? Noel 1 packet twice daily ? Vitamin C, Nephro-Vinay, zinc #Health Maintenance Disposition: Medsurg, TB rule out DVT prophylaxis: Lovenox GI prophylaxis: Protonix Diet: Jevity 1.2 CODE STATUS: Full code Patient seen and care discussed with my senior resident, Dr. Egan, and my attending physician, Dr. Paige Magallanes, PGY-1 LPatient examined and case discussed with the team including attending physician. Note reviewed, I agree with the care plan as documented. Ms. Bautista is a 73-year-old female who is chronically bedbound, nonverbal at baseline, chronic PEG tube and quadriplegia with history of seizure disorder secondary to cerebral palsy, who was discharged 1 day ago after being treated for influenza and RSV pneumonia. She was sent back from nursing facility for persistent hypoxia, however on repeat chest x-ray in the ED she was found to have a right upper lobe cavitary lesion. Given the new findings, CT chest was ordered for further evaluation, which confirmed a septated cavitary lesion with surrounding edema. Patient is admitted for TB and cocci rule out. Infectious disease Dr Hawk is consulted for further recommendations. Plan: Cotinue IV doxycycline, Rocephin until ID evaluation. Stopped fluconazole, pending cocci IgM and TB AFB and QF results. - Sina Egan MD, PGY 2 Disclaimer: The document below may not be free of grammatical/phonetic/typographic errors due to use of voice recognition software. This does not dissuade from the commitment to providing health care with the patient's best interest in mind. L Attending Provider Attestation/Addendum I have examined the patient, reviewed labs and imaging findings, discussed the case with the resident(s), and reviewed entered orders. I agree with the plan of care as outlined in this note, with these additional summaries/recommendations: Patient seen at bedside. No acute overnight events. Patient is nonverbal and no history can be obtained. Patient was admitted for cavitary lesion seen on chest x-ray. CT chest was obtained which revealed septated irregular cavitary lesion in the right upper lobe measuring 6.4 cm in transverse dimension, bronchiectasis right upper lobe, and significant left base and left upper lobe pneumonia. Case was discussed with in-house pulmonology and findings most likely related to previous aspiration pneumonia causing scarring versus previous tuberculosis causing scarring versus least likely active TB. TB studies obtained. We will follow-up results when available. If positive we will notify caregivers. Patient was just discharged from the hospital with oral antibiotics to complete treatment course for bacterial pneumonia and IV antibiotics resumed. Continue supplemental oxygen. Continue home antiepileptics. Continue breathing treatments and supplemental oxygen. Will follow-up TB studies when available. Repeat hematology and chemistry for feeds. Dr. Paige MD
[2024-05-25] MEDS: ZINC SULFATE 220 MG CAPSULE GT (13:26)
[2024-05-25] MEDS: VIT B12/Vit C/FA (Nephrovite) TABLET 1 TAB GT (13:26)
[2024-05-25 15:18] LABS: Cocci Serology, IgM Positive (Negative)
[2024-05-25 15:19] LABS: Cocid Sro, CF/ID (UCD) NO CHG* See Sep Rpt
--- NOTE | 2024-05-25 17:34 | PC.NURSE ---
Notified the provider about pt. G tube residual amount of 110 cc waiting for the orders.
[2024-05-25] MEDS: ASCORBIC ACID 250 MG TABLET GT (20:34)
[2024-05-26] VITALS (10 sets, daily range): BP systolic 133–164; BP diastolic 72–93; PULSE 89–107; RESP 18–20; TEMP 36.2–36.4; O2SAT 92–99
[2024-05-26] MEDS: ALBUTEROL/IPRATROPIUM (Duoneb) RT SOL 3 ML NEBU INH ×4 (00:40→19:47)
[2024-05-26 06:32] LABS: Basophils % (Auto) 0 % (0-2.5); Eosinophils # (Auto) 0.2 Thou/mm3 (0.0-0.5); Eosinophils % (Auto) 3 % (0-10); Hematocrit 33.7 % (36.0-46.0); Hemoglobin 11.6 g/dL (12.0-16.0); Immature Granulocytes % (Auto) 0 % (0-0); Immature Granulocytes Auto 0.02 Thou/mm3 (0.00-0.00); Lymphocytes # (Auto) 2.1 Thou/mm3 (1.0-4.8); Lymphocytes % (Auto) 32 % (10-50); Mean Corpuscular HGB Conc 34.4 g/dl (31.0-37.0); Mean Corpuscular Hemoglobin 32.3 pg (25.0-35.0); Mean Corpuscular Volume 94 fL (80-100); Monocytes # (Auto) 0.8 Thou/mm3 (0.0-0.8); Monocytes % (Auto) 12 % (0-12); Neutrophils # (Auto) 3.6 Thou/mm3 (1.8-7.7); Neutrophils % (Auto) 53 % (37-80); Nucleated Red Blood Cell % 0 /100 WBC (0); Platelet Count 227 Thou/mm3 (140-440); RDW Standard Deviation 45.7 fL (36.4-46.3); Red Blood Count 3.59 Miln/mm3 (4.00-5.20); White Blood Count 6.8 Thou/mm3 (3.6-11.0)
[2024-05-26 06:57] LABS: Albumin, Serum 3.2 gm/dL (3.4-4.8); Anion Gap 8 (7-16); BUN/Creatinine Ratio 63 Ratio (12-20); Blood Urea Nitrogen 19 mg/dL (9-23); Calcium 8.1 mg/dL (8.3-10.6); Calcium (Corrected) 8.7 mg/dL (8.5-10.1); Carbon Dioxide 25.5 mMol/L (20.0-31.0); Chloride 102 mMol/L (98-107); Creatinine (Component) 0.3 mg/dL (0.6-1.3); Estimated Creatinine Clearance 130.1 mL/min (>60); Glucose 125 mg/dL (74-106); Magnesium 1.8 mg/dL (1.6-2.6); Osmolality,Calculated 273 (275-295); Potassium 4.5 mMol/L (3.4-5.1); Sodium 135 mMol/L (136-145); eGFR > 60 See Note
[2024-05-26] MEDS: BUDESONIDE RT 0.25 MG/2 ML NEBU INH ×2 (07:58→19:47)
[2024-05-26] MEDS: ASCORBIC ACID 250 MG TABLET GT ×2 (09:54→20:31)
[2024-05-26] MEDS: VIT B12/Vit C/FA (Nephrovite) TABLET 1 TAB GT (09:54)
[2024-05-26] MEDS: ZINC SULFATE 220 MG CAPSULE GT (09:54)
[2024-05-26] MEDS: FLUCONAZOLE SUSP 40 MG/ML ML 400 MG GT (09:55)
[2024-05-26] MEDS: PANTOPRAZOLE INJ 40 MG VIAL IV (09:56)
[2024-05-26] MEDS: PHENYTOIN 100 MG/4 ML UDC 50 MG GT ×2 (09:56→20:31)
[2024-05-26] MEDS: ENOXAPARIN SOD INJ 40 MG/0.4 ML SYRINGE SC (09:57)
[2024-05-26] MEDS: PHENobarbitaL 32.4 MG TABLET GT ×2 (09:57→20:31)
[2024-05-26] MEDS: cefTRIAXone 1,000 MG in SODIUM CHLORIDE 0.9% (Popper) 50 ML 100 MG IV (09:57)
[2024-05-26] MEDS: DOXYCYCLINE INJ 100 MG in SODIUM CHLORIDE 0.9% (POP) 100 ML IV ×2 (09:58→20:31)
--- NOTE | 2024-05-26 10:41 | ESPR_ITS ---
<Statement entered by Venancio Nuñez MD - 05/27/24 07:10> Senior Resident Attestation: I supervised/discussed management plan with internet sales consultant physician Dr. Magallanes, and was involved in the care of this patient. I personally saw and examined the patient and discussed the assessment and plan with the entire medicine team, including my attending. I agree with the assessment and plan as documented. Patient's care was discussed with attending physician, Dr. Gibson. Venancio Nuñez MD PGY-2. Documentation for date of: 05/26/24 Subjective Subjective Interval history: HPI limited as patient is poor historian bedbound and and deaf Patient examined at bedside today. No acute overnight events. Patient is cocci IgM positive, white count 6.8, hemoglobin 11.6, BUN/creatinine of 14 and 0.3 respectively, magnesium 1.8, potassium 4.5. Exam Vital Signs Temp Pulse Resp BP Pulse Ox O2 Del Method O2 Flow Rate 97.6 F 97 20 147/82 H 94 L Nasal Cannula 2 05/26/24 08:00 05/26/24 08:00 05/26/24 08:00 05/26/24 08:00 05/26/24 08:00 05/26/24 08:00 05/26/24 08:00 Narrative Exam General: AAOx1?, Mouth breather, deaf, blind does not appear to be in any acute distress, sleeping, patient is in bottled up state with arms and feet close to body, chronically bedbound, quadriplegic HEENT: Moist mucous membranes, 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 Objective Labs 05/27/24 05:06 05/27/24 05:06 Labs: Laboratory Results - last 24 hr 05/25/24 05/26/24 05:51 05:40 WBC 6.8 RBC 3.59 L Hgb 11.6 L Hct 33.7 L MCV 94 MCH 32.3 MCHC 34.4 RDW Std Deviation 45.7 Plt Count 227 Neut % (Auto) 53 Lymph % (Auto) 32 [place] % (Auto) 12 Eos % (Auto) 3 Baso % (Auto) 0 Neut # (Auto) 3.6 Lymph # (Auto) 2.1 [place] # (Auto) 0.8 Eos # (Auto) 0.2 Baso # (Auto) 0.0 Immature Gran # (Auto) 0.02 H Absolute Nucleated RBC 0.00 Immature Gran % 0 Nucleated RBC % 0 Sodium 135 L Potassium 4.5 D Chloride 102 Carbon Dioxide 25.5 Anion Gap 8 BUN 19 Creatinine 0.3 L Estim Creat Clear Calc 130.1 eGFR > 60 BUN/Creatinine Ratio 63 H Glucose 125 H Calculated Osmolality 273 L Calcium 8.1 L Corrected Calcium 8.7 Phosphorus 3.0 Magnesium 1.8 Albumin 3.2 L Coccidioides IgM Ab Positive A Quality Measures Quality Measures none Advance care planning discussed with:: patient and other (Gimp Tacker) Assessment & Plan Assessment Current Active Medications: Generic Name Dose Route Start Last Admin Trade Name Freq PRN Reason Stop Dose Admin Acetaminophen 1,000 mg 05/24/24 17:43 Acetaminophen 325 Mg Tablet PO 06/23/24 17:42 Q6H PRN Fever >100 or pain 1-3 Albuterol/Ipratropium 3 ml 05/24/24 19:00 05/26/24 07:58 Albuterol/Ipratropium (Duoneb) Rt Rylee 3 Ml Nebu INH 06/23/24 18:59 3 ml Q6HRRT CARMITA Administration Ascorbic Acid 250 mg 05/25/24 21:00 05/26/24 09:54 Ascorbic Acid 250 Mg Tablet GT 06/24/24 20:59 250 mg BID CARMITA Administration Budesonide 0.25 mg 05/24/24 19:00 05/26/24 07:58 Budesonide Rt 0.25 Mg/2 Ml Nebu INH 06/23/24 18:59 0.25 mg BIDRT CARMITA Administration Enoxaparin Sodium 40 mg 05/25/24 09:00 05/26/24 09:57 Enoxaparin Sod Inj 40 Mg/0.4 Ml Syringe SC 06/08/24 08:59 40 mg QDAY CARMITA Administration Fluconazole 400 mg 05/26/24 09:00 05/26/24 09:55 Fluconazole Susp 40 Mg/Ml Ml GT 06/02/24 08:59 400 mg QDAY CARMITA Administration Guaifenesin/Dextromethorphan 1 each 05/24/24 18:30 Guaifenesin/Dm Tablet GT 06/23/24 18:29 QDAY PRN COUGH Ceftriaxone Sodium 1,000 mg/ 50 mls @ 100 mls/hr 05/24/24 18:15 05/26/24 09:57 Sodium Chloride IV 05/31/24 18:14 100 mls/hr QDAY CARMITA Administration Doxycycline Hyclate 100 mg/ 100 mls @ 100 mls/hr 05/24/24 21:00 05/26/24 09:58 Sodium Chloride IV 05/31/24 20:59 100 mls/hr BID CARMITA Administration Ondansetron HCl 4 mg 05/24/24 17:43 Ondansetron Inj 2 Mg/Ml Inj 2 Ml IV 06/23/24 17:42 Q6H PRN NAUSEA OR VOMITING Protocol Pantoprazole Sodium 40 mg 05/25/24 09:00 05/26/24 09:56 Pantoprazole Inj 40 Mg Vial IV 06/24/24 08:59 40 mg QDAY CARMITA Administration Phenobarbital 32.4 mg 05/24/24 21:00 05/26/24 09:57 Phenobarbital 32.4 Mg Tablet GT 06/07/24 20:59 32.4 mg BID CARMITA Administration Phenytoin 50 mg 05/25/24 09:30 05/26/24 09:56 Phenytoin 100 Mg/4 Ml Udc GT 06/23/24 20:59 50 mg BID CARMITA Administration Sodium Chloride 3 ml 05/24/24 10:04 Sodium Chloride Rt Rylee 0.9% 3 Ml Nebu INH 06/23/24 10:03 PRN PRN SOLN Vitamin B Complex/Vit C/Folic Acid 1 tab 05/25/24 13:15 05/26/24 09:54 Vit B12/Vit C/Fa (Nephrovite) Tablet GT 06/24/24 13:14 1 tab QDAY CARMITA Administration Zinc Sulfate 220 mg 05/25/24 13:15 05/26/24 09:54 Zinc Sulfate 220 Mg Capsule GT 06/24/24 13:14 220 mg QDAY CARMITA Administration Plan Assessment Daria is a 73 y/o female with PMHx of developmentally delayed, cerebral palsy, epilepsy, quadriplegic, cerebral palsy, blind, deaf, chronic PEG who is currently admitted for TB rule out and evaluation of cavitary lesion #TB rule out #Cavitary lesion, RUL, 6.2 cm #Chronic aspiration pneumonia versus chronic TB versus cocci #Bronchiectasis, RUL DDx: Cocci, TB, bleb, abscess, aspergillus Seen initially on chest x-ray in the right lobe Unlikely abscess as patient does not have fever History is limited so unsure if patient has been exposed to cocci or TB Risk factors, vaccine history, with history all limited due to patient being poor historian No history of immunocompromise documented CT chest shows: Septated irregular cavitary lesion in the right upper lobe, 6.4 cm in transverse dimension Bronchiectasis right upper lobe Spoke with electronic design engineer, CT imaging looks like possible chronic aspiration or previous TB for cocci, will need to further workup Patient is a mouth breather and has been admitted for previous aspiration so there is a risk factor for chronic aspiration however will further workup IgM positive, will restart Diflucan In the light of IgM being positive for cocci, TB lower on differential, however IgM can always have false positive Pending AFBs as they have been collected and sent Plan: ? Pulmonology consulted, appreciate recs ? Infectious disease consulted, appreciate recs ? AFBs x 3, follow-up ? Cocci serologies, follow-up with IgG ? Aspergillus serum, follow-up ? Start fluconazole 400 mg ? Airborne precautions ? QuantiFERON to be done Monday #Acute hypoxic respiratory failure secondary to #RSV pneumonia, on 05/21 #Influenza A positive, on 05/19 #Superimposed bacterial infection, CAP versus aspiration No sepsis alert initiated Pt has recently come in for influenza A and RSV pneumonia Patient does sound congested on physical exam Was given Solu-Medrol 125 in the ED Chest CT shows: Significant left base and lingular segment left upper lobe pneumonia MRSA negative Plan: ? Doxy 100 mg twice daily IV and Rocephin 1 g IV ? DuoNebs scheduled every 6 hours ? Frequent suctioning ? Oxygen, wean down as tolerated ? Tylenol for fever ? Added Mucinex twice daily via G-tube #Euvolemic hypoosmolar hyponatremia, chronic #Hypochloridemia Osmolarity 273 Sodium 135 Plan: ? Fluid restriction ? Trend with CMP #History of seizure disorder. Chronic Plan: ? Continue home phenobarbital 32.43 times a day ? Continue home phenytoin 50 mg twice a day #History of developmental delay. #History of cerebral palsy on PEG tube. #History of quadriplegia. #History of blindness. #Hx of Deafness Chronic RD recommendations: 1) Jevity 1.2 at 20 ml/hr via PEG tube by pump. Advance 10 ml every 8 hrs to goal rate of 40 ml/hr x 24 hrs. 2) Recommend: Noel 1 pkt BID mixed with 6-8 oz water via PEG tube (unflavored). 3) Recommend: Vitamin C 250 mg BID, zinc sulfate 220 mg once daily, and nephro- vinay. Plan: ? Continue with Jevity 1.2 tube feeds as above ? Noel 1 packet twice daily ? Vitamin C, Nephro-Vinay, zinc #Health Maintenance Disposition: Medsurg, TB rule out DVT prophylaxis: Lovenox GI prophylaxis: Protonix Diet: Jevity 1.2 CODE STATUS: Full code Patient seen and care discussed with my senior resident, Dr. Nuñez, and my attending physician, Dr. Paige Magallanes, PGY-1 Attending Provider Attestation/Addendum I have examined the patient, reviewed labs and imaging findings, discussed the case with the resident(s), and reviewed entered orders. I agree with the plan of care as outlined in this note, with these additional summaries/recommendations: Patient seen at bedside. No acute overnight events. Patient is nonverbal and no history can be obtained. Patient was admitted for cavitary lesion seen on chest x-ray. CT chest was obtained which revealed septated irregular cavitary lesion in the right upper lobe measuring 6.4 cm in transverse dimension, bronchiectasis right upper lobe, and significant left base and left upper lobe pneumonia. Case was discussed with in-house pulmonology and findings most likely related to previous aspiration pneumonia causing scarring versus Cocci versus previous tuberculosis causing scarring versus least likely active TB. TB studies obtained and pending results. We will follow-up results when available. If positive we will notify caregivers. Patient was just discharged from the hospital with oral antibiotics to complete treatment course for bacterial pneumonia and IV antibiotics resumed. Continue supplemental oxygen. Cocci IgM returned positive and patient started on fluconazole. Continue home antiepileptics. Continue breathing treatments and supplemental oxygen. Will follow-up TB studies when available. Repeat hematology and chemistry in am. Dr. Paige MD
--- NOTE | 2024-05-26 12:08 | PC.SS ---
Patient is a re-admit within 48 hours. She was recently here and discharged back to her residential [facility]. Patient is devel. delayed and is connected with [facility]. They make all healthcare medical decisions. No family involved. Patient uses a wheelchair. SS spoke to [facility] home electrical apprentice, [place], who provided a brief history. Patient is admitted for TB R/o. Patient was lethargic when returning home on previous admission. SS spoke to [facility] electrical apprentice and they state they have another client who was admitted to hospital due to valley fever and rsv. Patient will return to [facility] once medically cleared and stable. Patient PCP: Angelique Chamorro NP @ [facility]. Patient will need gurney transport upon discharge.
[2024-05-26] MEDS: guaiFENesin/P-EPHED TABLET 1 TAB GT (20:30)
[2024-05-27] VITALS (10 sets, daily range): BP systolic 110–144; BP diastolic 74–89; PULSE 87–102; RESP 17–24; TEMP 35.9–36.4; O2SAT 92–99
[2024-05-27] MEDS: ALBUTEROL/IPRATROPIUM (Duoneb) RT SOL 3 ML NEBU INH ×4 (01:42→19:15)
[2024-05-27 05:47] LABS: Quantiferon-TB* See Sep Rpt
[2024-05-27 06:04] LABS: Basophils % (Auto) 1 % (0-2.5); Eosinophils # (Auto) 0.3 Thou/mm3 (0.0-0.5); Eosinophils % (Auto) 5 % (0-10); Hematocrit 34.6 % (36.0-46.0); Hemoglobin 11.6 g/dL (12.0-16.0); Immature Granulocytes % (Auto) 0 % (0-0); Immature Granulocytes Auto 0.02 Thou/mm3 (0.00-0.00); Lymphocytes # (Auto) 2.2 Thou/mm3 (1.0-4.8); Lymphocytes % (Auto) 33 % (10-50); Mean Corpuscular HGB Conc 33.5 g/dl (31.0-37.0); Mean Corpuscular Hemoglobin 32.3 pg (25.0-35.0); Mean Corpuscular Volume 96 fL (80-100); Monocytes # (Auto) 0.8 Thou/mm3 (0.0-0.8); Monocytes % (Auto) 12 % (0-12); Neutrophils # (Auto) 3.3 Thou/mm3 (1.8-7.7); Neutrophils % (Auto) 50 % (37-80); Nucleated Red Blood Cell % 0 /100 WBC (0); Platelet Count 221 Thou/mm3 (140-440); RDW Standard Deviation 47.7 fL (36.4-46.3); Red Blood Count 3.59 Miln/mm3 (4.00-5.20); White Blood Count 6.7 Thou/mm3 (3.6-11.0)
[2024-05-27 06:30] LABS: Albumin, Serum 3.2 gm/dL (3.4-4.8); Anion Gap 6 (7-16); BUN/Creatinine Ratio 60 Ratio (12-20); Blood Urea Nitrogen 18 mg/dL (9-23); Calcium 8.3 mg/dL (8.3-10.6); Calcium (Corrected) 8.9 mg/dL (8.5-10.1); Carbon Dioxide 25.7 mMol/L (20.0-31.0); Chloride 102 mMol/L (98-107); Creatinine (Component) 0.3 mg/dL (0.6-1.3); Estimated Creatinine Clearance 130.1 mL/min (>60); Glucose 103 mg/dL (74-106); Magnesium 1.9 mg/dL (1.6-2.6); Osmolality,Calculated 270 (275-295); Phosphorous 2.8 mg/dL (2.4-5.1); Potassium 4.9 mMol/L (3.4-5.1); Sodium 134 mMol/L (136-145); eGFR > 60 See Note
[2024-05-27] MEDS: BUDESONIDE RT 0.25 MG/2 ML NEBU INH ×2 (07:02→19:15)
[2024-05-27] MEDS: FLUCONAZOLE SUSP 40 MG/ML ML 400 MG GT (09:36)
[2024-05-27] MEDS: ENOXAPARIN SOD INJ 40 MG/0.4 ML SYRINGE SC (09:37)
[2024-05-27] MEDS: DOXYCYCLINE INJ 100 MG in SODIUM CHLORIDE 0.9% (POP) 100 ML IV (09:37)
[2024-05-27] MEDS: CEFEPIME INJ 1 GM in SODIUM CHLORIDE 0.9% (Popper) 50 ML IV (09:37)
[2024-05-27] MEDS: PANTOPRAZOLE INJ 40 MG VIAL IV (09:37)
[2024-05-27] MEDS: PHENYTOIN 100 MG/4 ML UDC 50 MG GT ×2 (09:38→20:23)
[2024-05-27] MEDS: guaiFENesin/P-EPHED TABLET 1 TAB GT ×2 (09:38→20:23)
[2024-05-27] MEDS: VIT B12/Vit C/FA (Nephrovite) TABLET 1 TAB GT (09:38)
[2024-05-27] MEDS: ASCORBIC ACID 250 MG TABLET GT ×2 (09:38→20:24)
[2024-05-27] MEDS: PHENobarbitaL 32.4 MG TABLET GT ×2 (09:38→20:23)
[2024-05-27] MEDS: ZINC SULFATE 220 MG CAPSULE GT (09:38)
--- NOTE | 2024-05-27 10:25 | ESPR_ITS ---
Subjective Subjective Interval history: Flu can RSV pos. sh [place]ooks like a [place] resident, so should havce an annual ppd in that settingash rul change that date back to at least 2-21 on CXR revoew no [place] data on ppd noted. cocci is unuaul in those who o not get outside. cefe[pime problemtaci as no enteral option and she may have had rxv or flu or both as the cause of her iilness. Exam Vital Signs Temp Pulse Resp BP Pulse Ox O2 Del Method O2 Flow Rate 97.5 F 100 17 110/74 95 Nasal Cannula 2 05/27/24 08:00 05/27/24 08:00 05/27/24 08:00 05/27/24 08:00 05/27/24 08:00 05/27/24 08:00 05/27/24 08:00 Narrative Exam not distressed.. some transmitted upper airway rounds. Objective - Internal Medicine Labs 05/27/24 05:06 05/27/24 05:06 Labs: Laboratory Results - last 24 hr 05/27/24 05:06 WBC 6.7 RBC 3.59 L Hgb 11.6 L Hct 34.6 L MCV 96 MCH 32.3 MCHC 33.5 RDW Std Deviation 47.7 H Plt Count 221 Neut % (Auto) 50 Lymph % (Auto) 33 [place] % (Auto) 12 Eos % (Auto) 5 Baso % (Auto) 1 Neut # (Auto) 3.3 Lymph # (Auto) 2.2 [place] # (Auto) 0.8 Eos # (Auto) 0.3 Baso # (Auto) 0.0 Immature Gran # (Auto) 0.02 H Absolute Nucleated RBC 0.00 Immature Gran % 0 Nucleated RBC % 0 Sodium 134 L Potassium 4.9 Chloride 102 Carbon Dioxide 25.7 Anion Gap 6 L BUN 18 Creatinine 0.3 L Estim Creat Clear Calc 130.1 eGFR > 60 BUN/Creatinine Ratio 60 H Glucose 103 Calculated Osmolality 270 L Calcium 8.3 Corrected Calcium 8.9 Phosphorus 2.8 Magnesium 1.9 Albumin 3.2 L Assessment & Plan A&P Narrative flu and rxf old rul cavities. unknown ppd status at [place] ok to w/u for tb, but I would start by [place] for their data as pts are to have an annual ppd. cocci okbut seems liess likely unless she gets outside. pseucomonas is not a likely pathogen, so stoped it and with pt being afebrile, changed to enteral cefuroxime Time Spent With Patient Time: Total time spent is greater than 50% in coordination of care (as documented) at patient's floor/unit and/or counseling patient:
--- NOTE | 2024-05-27 13:43 | ESPR_ITS ---
Documentation for date of: 05/27/24 Subjective Subjective Interval history: Patient was seen and examined at the bedside. No acute overnight events. Patient appears comfortable and not in distress. Pending TB rule out QuantiFERON and AFB. Pending confirmatory cocci send out test. Will continue current management and monitor patient. Exam Vital Signs Temp Pulse Resp BP Pulse Ox O2 Del Method O2 Flow Rate 97.2 F 88 24 H 138/79 H 99 Nasal Cannula 3 05/27/24 12:00 05/27/24 12:34 05/27/24 12:34 05/27/24 12:00 05/27/24 12:34 05/27/24 12:00 05/27/24 12:34 Narrative Exam Gen: Well-nourished elderly female, not in distress. HEENT: NCAT, PERRLA, MMM, anicteric conjunctivae, large nevus over right eye and forehead, poor dentition. CVS: normal S1 and S2. RRR. No M/R/G. Resp: minimal crackles B/L. No rhonchi, rales or wheezing. Abd: soft, non-tender, non-distended. BS+ in all [address] and is clean. MSK: Good ROM in BUE & BLE. No rash. Trace edema BLE. Neuro: limited exam due to medical condition. Objective Labs 05/28/24 04:55 05/28/24 04:55 Labs: Laboratory Results - last 24 hr 05/27/24 05:06 WBC 6.7 RBC 3.59 L Hgb 11.6 L Hct 34.6 L MCV 96 MCH 32.3 MCHC 33.5 RDW Std Deviation 47.7 H Plt Count 221 Neut % (Auto) 50 Lymph % (Auto) 33 [place] % (Auto) 12 Eos % (Auto) 5 Baso % (Auto) 1 Neut # (Auto) 3.3 Lymph # (Auto) 2.2 [place] # (Auto) 0.8 Eos # (Auto) 0.3 Baso # (Auto) 0.0 Immature Gran # (Auto) 0.02 H Absolute Nucleated RBC 0.00 Immature Gran % 0 Nucleated RBC % 0 Sodium 134 L Potassium 4.9 Chloride 102 Carbon Dioxide 25.7 Anion Gap 6 L BUN 18 Creatinine 0.3 L Estim Creat Clear Calc 130.1 eGFR > 60 BUN/Creatinine Ratio 60 H Glucose 103 Calculated Osmolality 270 L Calcium 8.3 Corrected Calcium 8.9 Phosphorus 2.8 Magnesium 1.9 Albumin 3.2 L Quality Measures Quality Measures VTE prophylaxis Advance care planning discussed with:: patient Assessment & Plan Assessment Current Active Medications: Generic Name Dose Route Start Last Admin Trade Name Freq PRN Reason Stop Dose Admin Acetaminophen 1,000 mg 05/24/24 17:43 Acetaminophen 325 Mg Tablet PO 06/23/24 17:42 Q6H PRN Fever >100 or pain 1-3 Albuterol/Ipratropium 3 ml 05/24/24 19:00 05/27/24 12:33 Albuterol/Ipratropium (Duoneb) Rt Rylee 3 Ml Nebu INH 06/23/24 18:59 3 ml Q6HRRT CARMITA Administration Ascorbic Acid 250 mg 05/25/24 21:00 05/27/24 09:38 Ascorbic Acid 250 Mg Tablet GT 06/24/24 20:59 250 mg BID CARMITA Administration Budesonide 0.25 mg 05/24/24 19:00 05/27/24 07:02 Budesonide Rt 0.25 Mg/2 Ml Nebu INH 06/23/24 18:59 0.25 mg BIDRT CARMITA Administration Cefuroxime Axetil 500 mg 05/27/24 21:00 Cefuroxime Axetil 250 Mg Tablet PO 05/31/24 22:50 BID CARMITA Enoxaparin Sodium 40 mg 05/25/24 09:00 05/27/24 09:37 Enoxaparin Sod Inj 40 Mg/0.4 Ml Syringe SC 06/08/24 08:59 40 mg QDAY CARMITA Administration Fluconazole 400 mg 05/26/24 09:00 05/27/24 09:36 Fluconazole Susp 40 Mg/Ml Ml GT 06/02/24 08:59 400 mg QDAY CARMITA Administration Guaifenesin 1 tab 05/26/24 21:00 05/27/24 09:38 Guaifenesin/P-Ephed Tablet GT 06/25/24 20:59 1 tab BID CARMITA Administration Ondansetron HCl 4 mg 05/24/24 17:43 Ondansetron Inj 2 Mg/Ml Inj 2 Ml IV 06/23/24 17:42 Q6H PRN NAUSEA OR VOMITING Protocol Phenobarbital 32.4 mg 05/24/24 21:00 05/27/24 09:38 Phenobarbital 32.4 Mg Tablet GT 06/07/24 20:59 32.4 mg BID CARMITA Administration Phenytoin 50 mg 05/25/24 09:30 05/27/24 09:38 Phenytoin 100 Mg/4 Ml Udc GT 06/23/24 20:59 50 mg BID CARMITA Administration Sodium Chloride 3 ml 05/24/24 10:04 Sodium Chloride Rt Rylee 0.9% 3 Ml Nebu INH 06/23/24 10:03 PRN PRN SOLN Vitamin B Complex/Vit C/Folic Acid 1 tab 05/25/24 13:15 05/27/24 09:38 Vit B12/Vit C/Fa (Nephrovite) Tablet GT 06/24/24 13:14 1 tab QDAY CARMITA Administration Zinc Sulfate 220 mg 05/25/24 13:15 05/27/24 09:38 Zinc Sulfate 220 Mg Capsule GT 06/24/24 13:14 220 mg QDAY CARMITA Administration Plan Daria is a 73 y/o female with PMHx of developmentally delayed, cerebral palsy, epilepsy, quadriplegic, cerebral palsy, blind, deaf, chronic PEG who is currently admitted for TB rule out and evaluation of cavitary lesion. #TB rule out #Cavitary lesion, RUL, 6.2 cm #Chronic aspiration pneumonia versus chronic TB versus cocci #Bronchiectasis, RUL DDx: Cocci, TB, bleb, abscess, aspergillus Seen initially on chest x-ray in the right lobe Unlikely abscess as patient does not have fever History is limited so unsure if patient has been exposed to cocci or TB Risk factors, vaccine history, with history all limited due to patient being poor historian No history of immunocompromise documented CT chest shows: Septated irregular cavitary lesion in the right upper lobe, 6.4 cm in transverse dimension Bronchiectasis right upper lobe Spoke with bulk receiver, CT imaging looks like possible chronic aspiration or previous TB for cocci, will need to further workup Patient is a mouth breather and has been admitted for previous aspiration so there is a risk factor for chronic aspiration however will further workup IgM positive, will restart Diflucan In the light of IgM being positive for cocci, TB lower on differential, however IgM can always have false positive Pending AFBs as they have been collected and sent Sputum culture preliminary showed pseudomonas. Plan: ? Pulmonology consulted, appreciate recs. ? Infectious disease consulted, appreciate recs. ? AFBs x 3, follow-up. ? Cocci serologies, follow-up with IgG. ? Aspergillus serum, follow-up. ? continue fluconazole 400 mg. ? Airborne precautions. ? QuantiFERON to be done Monday. #Acute hypoxic respiratory failure secondary to #RSV pneumonia, on 05/21 #Influenza A positive, on 05/19 #Superimposed bacterial infection, CAP versus aspiration No sepsis alert initiated Pt has recently come in for influenza A and RSV pneumonia Patient does sound congested on physical exam Was given Solu-Medrol 125 in the ED Chest CT shows: Significant left base and lingular segment left upper lobe pneumonia MRSA negative Plan: ? Doxy 100 mg twice daily IV. - Rocephin 1 g IV changed to cefuroxime by ID 05/27 - ? DuoNebs scheduled every 6 hours. ? Frequent suctioning. ? Oxygen, wean down as tolerated. ? Tylenol for fever . ? Added Mucinex twice daily via G-tube. #Euvolemic hypoosmolar hyponatremia, chronic #Hypochloridemia Osmolarity 273 Sodium 135 Plan: ? Fluid restriction ? Trend with CMP #History of seizure disorder. Chronic Plan: ? Continue home phenobarbital 32.43 times a day ? Continue home phenytoin 50 mg twice a day #History of developmental delay. #History of cerebral palsy on PEG tube. #History of quadriplegia. #History of blindness. #Hx of Deafness Chronic RD recommendations: 1) Jevity 1.2 at 20 ml/hr via PEG tube by pump. Advance 10 ml every 8 hrs to goal rate of 40 ml/hr x 24 hrs. 2) Recommend: Noel 1 pkt BID mixed with 6-8 oz water via PEG tube (unflavored). 3) Recommend: Vitamin C 250 mg BID, zinc sulfate 220 mg once daily, and nephro- vinay. Plan: ? Continue with Jevity 1.2 tube feeds as above ? Noel 1 packet twice daily ? Vitamin C, Nephro-Vinay, zinc #Health Maintenance Disposition: Medsurg, TB rule out DVT prophylaxis: Lovenox GI prophylaxis: Protonix Diet: Jevity 1.2 CODE STATUS: Full code Plan of care discussed with attending Dr. Gibson. Venancio Nuñez MD, PGY 2. Disclaimer: This note was dictated by speech recognition. Minor errors in ekg monitor tech may be present due to voice recognition software. Attending Provider Attestation/Addendum I have examined the patient, reviewed labs and imaging findings, discussed the case with the resident(s), and reviewed entered orders. I agree with the plan of care as outlined in this note, with these additional summaries/recommendations: Patient seen at bedside. No acute overnight events. Patient is nonverbal and no history can be obtained. Patient appears comfortable and not in acute distress. Patient is admitted for cavitary lesion seen on chest x-ray. CT chest was obtained which revealed septated irregular cavitary lesion in the right upper lobe measuring 6.4 cm in transverse dimension, bronchiectasis right upper lobe, and significant left base and left upper lobe pneumonia. Case was discussed with in-house pulmonology and findings most likely related to previous aspiration pneumonia causing scarring versus Cocci versus previous tuberculosis causing scarring versus least likely active TB. TB studies obtained and pending results. We will follow-up results when available. If positive we will notify caregivers. Patient was just discharged from the hospital with oral antibiotics to complete treatment course for bacterial pneumonia and IV antibiotics resumed. Continue supplemental oxygen. Sputum cx showing Pseudomonas likely contamination. Cocci IgM returned positive and patient started on fluconazole. Continue home antiepileptics. Continue breathing treatments and supplemental oxygen. Will follow-up TB studies when available. Repeat hematology and chemistry in am. Dr. Paige MD
--- NOTE | 2024-05-27 13:52 | PD.RESCONSUL ---
HPI Data of Consult Requesting Physician: Bao Gibson MD Admitting Provider: Bao Gibson MD Attending Provider: Bao Gibson MD Primary Care Provider: Physician No Primary/Family Consult Narrative Reason for consult: Right upper lobe cavitary lesion and cocci positive History of present illness: This patient is a 73-year-old female with past medical history of developmental delay, cerebral palsy, epilepsy, quadriplegic, cerebral palsy with blindness and deaf, chronic PEG tube came from facility with hypoxia. Per chart review, patient's home writing manager reported the patient was desatting around 89% despite receiving breathing treatments. Patient's baseline is 95%. Of note, patient was recently discharged with RSV pneumonia and influenza A positive however did not receive treatment with Tamiflu. On admission, patient was afebrile, tachycardic, breathing normally and was saturating above 90% 6L NC. Chest x-ray showed cavitary lesion right upper lobe seen on previous chest x-ray as well in addition to pneumonia. EKG showed sinus tachycardia. Patient was given breathing treatments and IV steroids. CT chest showed septated irregular cavitary lesion in the right upper lobe 6.4 cm and bronchiectasis right upper lobe. Sap Basis Architect recommended to investigate for possible chronic aspiration versus TB. Cocci IgM came positive therefore patient was started on Diflucan. Primary team also ordered Aspergillus. Primary team was managing the patient on fluconazole, doxycycline and Rocephin. 05/27/2024: ID team was consulted for right upper lobe cavitary lesion and cocci IgM positive. Patient was seen and examined at the bedside. Patient was mildly coughing. Limited history as patient is nonverbal and developmentally delayed. Patient was last seen in acute distress. Vitals showed blood pressure 130/79, heart rate 88 and breathing 24/min. Patient was saturating well on 3 L NC. Labs showed stable white count and hemoglobin. Kidney functions unremarkable. TB testing is pending. --> Recommended to follow-up on sputum AFB and TB results. Investigate from facility regarding patient's annual PPD results. Continue treatment of cocci with fluconazole although less likely possibility and this patient is taken outside. Although SPUTUM culture grew Pseudomonas is not likely pathogen and patient is afebrile therefore discontinued cefepime and doxycycline. Started cefuroxime 500 mg started to be continued until 05/31 to complete 7-day course. cc:: cc: Bao Gibson MD Review of Systems Review of Systems ROS Unobtainable: unobtainable due to mental status Past Medical History Past Medical History NEUROLOGIC: Positive Neurological Disorders, Seizures, Epilepsy and Cerebral Palsy RESPIRATORY: Positive Pneumonia GASTROINTESTINAL: Positive Gastrointestinal Disorders GENITOURINARY: Positive Genitourinary Disorders MUSCULOSKELETAL: Positive Musculoskeletal Disorders ENT: Positive Blind OTHER HISTORY: Positive Developmental Delay Social History SMOKING STATUS: Never smoker Exam Vital Signs Temp Pulse Resp BP Pulse Ox O2 Del Method O2 Flow Rate 97.2 F 88 24 H 138/79 H 99 Nasal Cannula 3 05/27/24 12:00 05/27/24 12:34 05/27/24 12:34 05/27/24 12:00 05/27/24 12:34 05/27/24 12:00 05/27/24 12:34 Narrative Exam Gen: Well-nourished elderly female, not in distress. HEENT: NCAT, PERRLA, MMM, anicteric conjunctivae, large nevus over right eye and forehead, poor dentition. CVS: normal S1 and S2. RRR. No M/R/G. Resp: minimal crackles B/L. No rhonchi, rales or wheezing. Abd: soft, non-tender, non-distended. BS+ in all [address] and is clean. MSK: Good ROM in BUE & BLE. No rash. Trace edema BLE. Neuro: limited exam due to medical condition. Results Labs 05/27/24 05:06 05/27/24 05:06 Labs: Short CBC 05/27/24 Range/Units 05:06 WBC 6.7 (3.6-11.0) Thou/mm3 Hgb 11.6 L (12.0-16.0) g/dL Hct 34.6 L (36.0-46.0) % Plt Count 221 (140-440) Thou/mm3 BMP 05/27/24 05:06 Sodium 134 L Potassium 4.9 Chloride 102 Carbon Dioxide 25.7 BUN 18 Creatinine 0.3 L Glucose 103 Calcium 8.3 Liver Function 05/27/24 Range/Units 05:06 Albumin 3.2 L (3.4-4.8) gm/dL Quality Measures Quality Measures VTE prophylaxis Advance care planning discussed with:: other Medications Home Medications and Allergies Home Medications ?Medication ?Instructions ?Recorded ?Confirmed ?Type loratadine 10 mg tablet 10 mg feeding tube QDAY 10/01/21 05/22/24 History phenobarbital 32.4 mg tablet 32.4 mg feeding tube BID 12/01/23 05/22/24 History phenytoin 50 mg chewable tablet 50 mg G-tube BID 12/01/23 05/22/24 History benzonatate 100 mg capsule 100 mg PO Q6H PRN cough 05/22/24 05/22/24 History hydroxyzine HCl 10 mg/5 mL oral 10 mg PO QID PRN itching 05/22/24 05/22/24 History solution polyethylene glycol 3350 17 gram 17 g feeding tube PRN PRN 05/22/24 05/22/24 History oral powder packet (ClearLax) constipation Allergies Allergy/AdvReac Type Severity Reaction Status Date / Time No Known Allergies Allergy Verified 05/24/24 09:46 Visit Medications Acetaminophen (Acetaminophen 325 Mg Tablet) 1,000 mg PO Q6H PRN PRN Reason: Fever >100 or pain 1-3 Stop: 06/23/24 17:42 Albuterol/Ipratropium (Albuterol/Ipratropium (Duoneb) Rt Rylee 3 Ml Nebu) 3 ml INH Q6HRRT [facility] Stop: 06/23/24 18:59 Last Admin: 05/27/24 12:33 Dose: 3 ml Ascorbic Acid (Ascorbic Acid 250 Mg Tablet) 250 mg GT BID [facility] Stop: 06/24/24 20:59 Last Admin: 05/27/24 09:38 Dose: 250 mg Budesonide (Budesonide Rt 0.25 Mg/2 Ml Nebu) 0.25 mg INH BIDRT [facility] Stop: 06/23/24 18:59 Last Admin: 05/27/24 07:02 Dose: 0.25 mg Cefuroxime Axetil (Cefuroxime Axetil 250 Mg Tablet) 500 mg PO BID [facility] Stop: 05/31/24 22:50 Enoxaparin Sodium (Enoxaparin Sod Inj 40 Mg/0.4 Ml Syringe) 40 mg SC QDAY [facility] Stop: 06/08/24 08:59 Last Admin: 05/27/24 09:37 Dose: 40 mg Fluconazole (Fluconazole Susp 40 Mg/Ml Ml) 400 mg GT QDAY [facility] Stop: 06/02/24 08:59 Last Admin: 05/27/24 09:36 Dose: 400 mg Guaifenesin (Guaifenesin/P-Ephed Tablet) 1 tab GT BID [facility] Stop: 06/25/24 20:59 Last Admin: 05/27/24 09:38 Dose: 1 tab Ondansetron HCl (Ondansetron Inj 2 Mg/Ml Inj 2 Ml) 4 mg IV Q6H PRN; Protocol PRN Reason: NAUSEA OR VOMITING Stop: 06/23/24 17:42 Phenobarbital (Phenobarbital 32.4 Mg Tablet) 32.4 mg GT BID [facility] Stop: 06/07/24 20:59 Last Admin: 05/27/24 09:38 Dose: 32.4 mg Phenytoin (Phenytoin 100 Mg/4 Ml Udc) 50 mg GT BID [facility] Stop: 06/23/24 20:59 Last Admin: 05/27/24 09:38 Dose: 50 mg Sodium Chloride (Sodium Chloride Rt Rylee 0.9% 3 Ml Nebu) 3 ml INH PRN PRN PRN Reason: SOLN Stop: 06/23/24 10:03 Vitamin B Complex/Vit C/Folic Acid (Vit B12/Vit C/Fa (Nephrovite) Tablet) 1 tab GT QDAY [facility] Stop: 06/24/24 13:14 Last Admin: 05/27/24 09:38 Dose: 1 tab Zinc Sulfate (Zinc Sulfate 220 Mg Capsule) 220 mg GT QDAY [facility] Stop: 06/24/24 13:14 Last Admin: 05/27/24 09:38 Dose: 220 mg Discontinued Medications Albuterol (Albuterol Rt 2.5 Mg/0.5 Ml Nebu) 10 mg INH X1 ONE Stop: 05/24/24 10:05 Last Admin: 05/24/24 10:49 Dose: 10 mg Albuterol (Albuterol Rt 2.5 Mg/3 Ml Nebu) 2.5 mg INH X1 ONE Stop: 05/24/24 13:49 Last Admin: 05/24/24 13:59 Dose: 2.5 mg Cefuroxime Axetil (Cefuroxime Axetil 250 Mg Tablet) 500 mg PO BID [facility] Stop: 05/31/24 20:59 Cefuroxime Axetil (Cefuroxime Axetil 250 Mg Tablet) 500 mg PO BID [facility] Stop: 06/03/24 20:59 Cephalexin HCl (Cephalexin Susp 250 Mg/5 Ml Ml) 500 mg GT QID CARMITA Stop: 05/31/24 20:59 Fluconazole (Fluconazole 100 Mg Tablet) 400 mg PO QDAY [facility] Stop: 05/31/24 18:14 Last Admin: 05/24/24 19:43 Dose: Not Given Fluconazole (Fluconazole Susp 40 Mg/Ml Ml) 400 mg GT QDAY CARMITA Stop: 05/31/24 18:29 Last Admin: 05/25/24 09:42 Dose: 400 mg Guaifenesin/Dextromethorphan (Guaifenesin/Dm Tablet) 1 each GT QDAY PRN PRN Reason: COUGH Stop: 06/23/24 18:29 Hydroxyzine HCl (Hydroxyzine Hcl Syrup 2 Mg/1 Ml) 10 mg GT QID PRN PRN Reason: itching/anxiety Stop: 06/23/24 20:59 Ceftriaxone Sodium 1,000 mg/ (Sodium Chloride) 50 mls @ 100 mls/hr IV QDAY CARMITA Stop: 05/31/24 18:14 Last Admin: 05/26/24 09:57 Dose: 100 mls/hr Doxycycline Hyclate 100 mg/ (Sodium Chloride) 100 mls @ 100 mls/hr IV BID CARMITA Stop: 05/31/24 20:59 Last Admin: 05/27/24 09:37 Dose: 100 mls/hr Cefepime HCl 1 gm/ Sodium (Chloride) 50 mls @ 100 mls/hr IV Q12HR CARMITA Stop: 06/03/24 08:59 Last Admin: 05/27/24 09:37 Dose: 100 mls/hr Loratadine (Loratadine 10 Mg Tablet) 10 mg PO QDAY CARMITA Stop: 06/24/24 08:59 Methylprednisolone Sodium Succinate (Methylprednisolone Sod Succ 62.5 Mg/Ml 2ml Vial) 125 mg IVP X1 ONE Stop: 05/24/24 10:05 Last Admin: 05/24/24 11:09 Dose: 125 mg Pantoprazole Sodium (Pantoprazole Inj 40 Mg Vial) 40 mg IV QDAY CARMITA Stop: 06/24/24 08:59 Last Admin: 05/27/24 09:37 Dose: 40 mg Phenytoin (Phenytoin Susp 25 Mg/Ml) 50 mg GT BID CARMITA Stop: 06/23/24 20:59 Last Admin: 05/27/24 08:13 Dose: Not Given Sodium Chloride (Sodium Chloride Rt 10% 15 Ml Nebu) 5 ml INH X1 ONE Stop: 05/24/24 17:50 Last Admin: 05/24/24 19:11 Dose: 5 ml Sodium Chloride (Sodium Chloride Rt 10% 15 Ml Nebu) 5 ml INH X1 ONE Stop: 05/24/24 18:37 Last Admin: 05/25/24 00:57 Dose: Not Given Assessment & Plan Plan Summary: This is a 73 y/o female with PMHx of developmentally delayed, cerebral palsy, epilepsy, quadriplegic, cerebral palsy, blind, deaf, chronic PEG who is currently admitted for TB rule out and evaluation of cavitary lesion. #TB rule out #Cavitary lesion, RUL, 6.2 cm #Chronic aspiration pneumonia versus chronic TB versus cocci #Bronchiectasis, RUL DDx: Cocci, TB, bleb, abscess, aspergillus - Patient presented with hypoxia on admission. She was RSV and influenza A positive. She did not get treatment with Tamiflu. History is limited therefore unsure about exposure to cocci or TB. -Chest x-ray showed cavitary lesion right upper lobe. CT chest showed septated irregular cavitary lesion in the right upper lobe 6.4 cm and bronchiectasis pattern. Primary team was managing with fluconazole, doxycycline and Rocephin. Patient is currently saturating on 3 L nasal cannula above 90%. -Labs showed stable white count and hemoglobin. Kidney functions unremarkable. Cocci IgM positive. Prelim sputum culture grew Pseudomonas growth. Plan: ? Investigate from facility/home regarding patient's annual PPD results if taken in the past as old chest x-ray showed cavitary lesion. ? Continue fluconazole although less likely possibility and this patient is taken outside for cocci ? Although SPUTUM culture grew Pseudomonas is not likely pathogen and patient is afebrile therefore discontinued cefepime and doxycycline. Started cefuroxime 500 mg started to be continued until 05/31 to complete 7-day course. ? Follow-up on AFB's, QuantiFERON and Aspergillus ? continue fluconazole 400 mg. ? Airborne precautions. ? Daily labs #Acute hypoxic respiratory failure #Likely secondary to #RSV pneumonia, on 05/21 #Influenza A positive, on 05/19 #Superimposed bacterial infection, CAP versus aspiration No sepsis alert initiated .Pt has recently come in for influenza A and RSV pneumonia Patient does sound congested on physical exam.Was given Solu-Medrol [address] in [address] ED Chest CT shows:Significant left base and lingular segment left upper lobe pneumonia.MRSA negative Sputum culture grew Pseudomonas Plan: ? Continue with cefuroxime 500 mg via G-tube until 05/31 ? DuoNebs scheduled every 6 hours. ? Frequent suctioning. ? Oxygen, wean down as tolerated. ?Continue Mucinex twice daily via G-tube. #Euvolemic hypoosmolar hyponatremia, chronic #Hypochloridemia #History of seizure disorder. #History of developmental delay. #History of cerebral palsy on PEG tube. #History of quadriplegia. #History of blindness. #Hx of Deafness Rest of the management as per primary care team. Thank you very much for consulting ID specialist team. -- Plan of care discussed with ID specialist, Dr Kenn Naidu MD, PGY 2
[2024-05-27] MEDS: cefuroxime axetiL 250 MG TABLET 500 MG PO (20:33)
[2024-05-28] VITALS (10 sets, daily range): BP systolic 108–143; BP diastolic 64–77; PULSE 23–102; RESP 16–20; TEMP 36–36.2; O2SAT 85–98
[2024-05-28] MEDS: ALBUTEROL/IPRATROPIUM (Duoneb) RT SOL 3 ML NEBU INH ×4 (00:03→19:55)
[2024-05-28 05:33] LABS: Basophils % (Auto) 0 % (0-2.5); Eosinophils # (Auto) 0.3 Thou/mm3 (0.0-0.5); Eosinophils % (Auto) 4 % (0-10); Hematocrit 32.9 % (36.0-46.0); Immature Granulocytes % (Auto) 0 % (0-0); Immature Granulocytes Auto 0.03 Thou/mm3 (0.00-0.00); Lymphocytes # (Auto) 2.1 Thou/mm3 (1.0-4.8); Lymphocytes % (Auto) 28 % (10-50); Mean Corpuscular HGB Conc 33.4 g/dl (31.0-37.0); Mean Corpuscular Volume 96 fL (80-100); Monocytes # (Auto) 0.8 Thou/mm3 (0.0-0.8); Monocytes % (Auto) 11 % (0-12); Neutrophils # (Auto) 4.2 Thou/mm3 (1.8-7.7); Neutrophils % (Auto) 56 % (37-80); Nucleated Red Blood Cell % 0 /100 WBC (0); Platelet Count 231 Thou/mm3 (140-440); RDW Standard Deviation 47.8 fL (36.4-46.3); Red Blood Count 3.44 Miln/mm3 (4.00-5.20); White Blood Count 7.5 Thou/mm3 (3.6-11.0)
[2024-05-28 06:20] LABS: Albumin, Serum 3.2 gm/dL (3.4-4.8); Anion Gap 6 (7-16); BUN/Creatinine Ratio 47 Ratio (12-20); Blood Urea Nitrogen 14 mg/dL (9-23); Calcium 8.1 mg/dL (8.3-10.6); Calcium (Corrected) 8.7 mg/dL (8.5-10.1); Carbon Dioxide 23.7 mMol/L (20.0-31.0); Chloride 98 mMol/L (98-107); Creatinine (Component) 0.3 mg/dL (0.6-1.3); Estimated Creatinine Clearance 130.1 mL/min (>60); Glucose 121 mg/dL (74-106); Magnesium 1.9 mg/dL (1.6-2.6); Osmolality,Calculated 258 (275-295); Phosphorous 2.8 mg/dL (2.4-5.1); Potassium 5.3 mMol/L (3.4-5.1); Sodium 128 mMol/L (136-145); eGFR > 60 See Note
[2024-05-28] MEDS: BUDESONIDE RT 0.25 MG/2 ML NEBU INH ×2 (06:57→19:55)
[2024-05-28] MEDS: cefuroxime axetiL 250 MG TABLET 500 MG PO ×2 (09:58→20:31)
[2024-05-28] MEDS: ZINC SULFATE 220 MG CAPSULE GT (09:58)
[2024-05-28] MEDS: VIT B12/Vit C/FA (Nephrovite) TABLET 1 TAB GT (09:58)
[2024-05-28] MEDS: guaiFENesin/P-EPHED TABLET 1 TAB GT ×2 (09:58→20:31)
[2024-05-28] MEDS: PHENYTOIN 100 MG/4 ML UDC 50 MG GT ×2 (09:58→20:31)
[2024-05-28] MEDS: ASCORBIC ACID 250 MG TABLET GT ×2 (09:58→20:31)
[2024-05-28] MEDS: PHENobarbitaL 32.4 MG TABLET GT ×2 (09:58→20:31)
[2024-05-28] MEDS: ENOXAPARIN SOD INJ 40 MG/0.4 ML SYRINGE SC (09:59)
[2024-05-28] MEDS: SODIUM CHLORIDE 0.9% 250 ML 250 ML 999 ML IV (09:59)
[2024-05-28] MEDS: FLUCONAZOLE SUSP 40 MG/ML ML 400 MG GT (10:00)
[2024-05-28 11:25] LABS: Cult AFB Sendout- Sputum* See Sep Rpt
[2024-05-28 13:13] LABS: Albumin, Serum 3.3 gm/dL (3.4-4.8); Anion Gap 5 (7-16); BUN/Creatinine Ratio 50 Ratio (12-20); Blood Urea Nitrogen 15 mg/dL (9-23); Calcium 8.3 mg/dL (8.3-10.6); Calcium (Corrected) 8.9 mg/dL (8.5-10.1); Carbon Dioxide 25.5 mMol/L (20.0-31.0); Chloride 100 mMol/L (98-107); Creatinine (Component) 0.3 mg/dL (0.6-1.3); Estimated Creatinine Clearance 130.1 mL/min (>60); Glucose 128 mg/dL (74-106); Osmolality,Calculated 263 (275-295); Phosphorous 2.8 mg/dL (2.4-5.1); Sodium 130 mMol/L (136-145); eGFR > 60 See Note
--- NOTE | 2024-05-28 14:59 | ESPR_ITS ---
Documentation for date of: 05/28/24 Subjective Subjective Interval history: HPI is limited as patient is poor historian Patient examined at bedside today. No acute overnight events. Blood 0.3, sodium 128, white count 7.5, hemoglobin 11. Patient continuing with treatment at this time no other complaints at this time. Exam Vital Signs Temp Pulse Resp BP Pulse Ox O2 Del Method O2 Flow Rate 97.0 F 95 18 111/71 95 Nasal Cannula 2 05/28/24 12:00 05/28/24 13:15 05/28/24 13:15 05/28/24 12:00 05/28/24 13:15 05/28/24 12:00 05/28/24 13:15 Narrative Exam General: AAOx1?, Mouth breather, deaf, blind does not appear to be in any acute distress, sleeping, patient is in bottled up state with arms and feet close to body, chronically bedbound, quadriplegic HEENT: Moist mucous membranes, 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 Objective Labs 05/30/24 05:05 05/30/24 05:05 Labs: Laboratory Results - last 24 hr 05/28/24 05/28/24 04:55 12:41 WBC 7.5 RBC 3.44 L Hgb 11.0 L Hct 32.9 L MCV 96 MCH 32.0 MCHC 33.4 RDW Std Deviation 47.8 H Plt Count 231 Neut % (Auto) 56 Lymph % (Auto) 28 [place] % (Auto) 11 Eos % (Auto) 4 Baso % (Auto) 0 Neut # (Auto) 4.2 Lymph # (Auto) 2.1 [place] # (Auto) 0.8 Eos # (Auto) 0.3 Baso # (Auto) 0.0 Immature Gran # (Auto) 0.03 H Absolute Nucleated RBC 0.00 Immature Gran % 0 Nucleated RBC % 0 Sodium 128 L 130 L Potassium 5.3 H 5.0 Chloride 98 100 Carbon Dioxide 23.7 25.5 Anion Gap 6 L 5 L BUN 14 15 Creatinine 0.3 L 0.3 L Estim Creat Clear Calc 130.1 130.1 eGFR > 60 > 60 BUN/Creatinine Ratio 47 H 50 H Glucose 121 H 128 H Calculated Osmolality 258 L 263 L Calcium 8.1 L 8.3 Corrected Calcium 8.7 8.9 Phosphorus 2.8 2.8 Magnesium 1.9 Albumin 3.2 L 3.3 L Quality Measures Quality Measures VTE prophylaxis Advance care planning discussed with:: patient Assessment & Plan Assessment Current Active Medications: Generic Name Dose Route Start Last Admin Trade Name Freq PRN Reason Stop Dose Admin Acetaminophen 1,000 mg 05/24/24 17:43 Acetaminophen 325 Mg Tablet PO 06/23/24 17:42 Q6H PRN Fever >100 or pain 1-3 Albuterol/Ipratropium 3 ml 05/24/24 19:00 05/28/24 13:14 Albuterol/Ipratropium (Duoneb) Rt Rylee 3 Ml Nebu INH 06/23/24 18:59 3 ml Q6HRRT CARMITA Administration Ascorbic Acid 250 mg 05/25/24 21:00 05/28/24 09:58 Ascorbic Acid 250 Mg Tablet GT 06/24/24 20:59 250 mg BID CARMITA Administration Budesonide 0.25 mg 05/24/24 19:00 05/28/24 06:57 Budesonide Rt 0.25 Mg/2 Ml Nebu INH 06/23/24 18:59 0.25 mg BIDRT CARMITA Administration Cefuroxime Axetil 500 mg 05/27/24 21:00 05/28/24 09:58 Cefuroxime Axetil 250 Mg Tablet PO 05/31/24 22:50 500 mg BID CARMITA Administration Enoxaparin Sodium 40 mg 05/25/24 09:00 05/28/24 09:59 Enoxaparin Sod Inj 40 Mg/0.4 Ml Syringe SC 06/08/24 08:59 40 mg QDAY CARMITA Administration Fluconazole 400 mg 05/26/24 09:00 05/28/24 10:00 Fluconazole Susp 40 Mg/Ml Ml GT 06/02/24 08:59 400 mg QDAY CARMITA Administration Guaifenesin 1 tab 05/26/24 21:00 05/28/24 09:58 Guaifenesin/P-Ephed Tablet GT 06/25/24 20:59 1 tab BID CARMITA Administration Ondansetron HCl 4 mg 05/24/24 17:43 Ondansetron Inj 2 Mg/Ml Inj 2 Ml IV 06/23/24 17:42 Q6H PRN NAUSEA OR VOMITING Protocol Phenobarbital 32.4 mg 05/24/24 21:00 05/28/24 09:58 Phenobarbital 32.4 Mg Tablet GT 06/07/24 20:59 32.4 mg BID CARMITA Administration Phenytoin 50 mg 05/25/24 09:30 05/28/24 09:58 Phenytoin 100 Mg/4 Ml Udc GT 06/23/24 20:59 50 mg BID CARMITA Administration Sodium Chloride 3 ml 05/24/24 10:04 Sodium Chloride Rt Rylee 0.9% 3 Ml Nebu INH 06/23/24 10:03 PRN PRN SOLN Vitamin B Complex/Vit C/Folic Acid 1 tab 05/25/24 13:15 05/28/24 09:58 Vit B12/Vit C/Fa (Nephrovite) Tablet GT 06/24/24 13:14 1 tab QDAY CARMITA Administration Zinc Sulfate 220 mg 05/25/24 13:15 05/28/24 09:58 Zinc Sulfate 220 Mg Capsule GT 06/24/24 13:14 220 mg QDAY CARMITA Administration Plan Assessment Daria is a 73 y/o female with PMHx of developmentally delayed, cerebral palsy, epilepsy, quadriplegic, cerebral palsy, blind, deaf, chronic PEG who is currently admitted for TB rule out and evaluation of cavitary lesion #TB rule out #Cavitary lesion, RUL, 6.2 cm #Chronic aspiration pneumonia versus chronic TB versus cocci #Bronchiectasis, RUL DDx: Cocci, TB, bleb, abscess, aspergillus Seen initially on chest x-ray in the right lobe Unlikely abscess as patient does not have fever History is limited so unsure if patient has been exposed to cocci or TB Risk factors, vaccine history, with history all limited due to patient being poor historian No history of immunocompromise documented CT chest shows: Septated irregular cavitary lesion in the right upper lobe, 6.4 cm in transverse dimension Bronchiectasis right upper lobe Spoke with social work coordinator, CT imaging looks like possible chronic aspiration or previous TB for cocci, will need to further workup Patient is a mouth breather and has been admitted for previous aspiration so there is a risk factor for chronic aspiration however will further workup IgM positive, will restart Diflucan In the light of IgM being positive for cocci, TB lower on differential, however IgM can always have false positive Pending AFBs as they have been collected and sent Spoke with senior care, patient not got in a PPD since 1982 and last time it was done it was normal Plan: ? Pulmonology consulted, appreciate recs ? Infectious disease consulted, appreciate recs ? AFBs x 3, follow-up ? Cocci serologies, follow-up with IgG ? Aspergillus serum, follow-up ? Continue with fluconazole 400 mg ? Airborne precautions ? Follow-up with QuantiFERON gold #Acute hypoxic respiratory failure secondary to #RSV pneumonia, on 05/21 #Influenza A positive, on 05/19 #Superimposed bacterial infection, CAP versus aspiration #Pseudomonas positive sputum culture No sepsis alert initiated Pt has recently come in for influenza A and RSV pneumonia Patient does sound congested on physical exam Was given Solu-Medrol 125 in the ED Chest CT shows: Significant left base and lingular segment left upper lobe pneumonia MRSA negative Infectious disease believes Pseudomonas is not infectious pathogen at this time and patient is not having fevers and will not aggressively treat for it Plan: ? Continue with cefuroxime axetil 500 mg twice daily ? DuoNebs scheduled every 6 hours ? Frequent suctioning ? Oxygen, wean down as tolerated ? Tylenol for fever ? Continue with Mucinex twice daily via G-tube #Euvolemic hypoosmolar hyponatremia, chronic #Hypochloridemia #Hyperkalemia Osmolarity 258 Sodium 128 Potassium 5.3 No hyperkalemic medicines that caused hyperkalemia, will continue to monitor Plan: ? Fluid restriction ? Trend with CMP ? Follow up renal panel #History of seizure disorder. Chronic Plan: ? Continue home phenobarbital 32.43 times a day ? Continue home phenytoin 50 mg twice a day #History of developmental delay. #History of cerebral palsy on PEG tube. #History of quadriplegia. #History of blindness. #Hx of Deafness Chronic RD recommendations: 1) Jevity 1.2 at 20 ml/hr via PEG tube by pump. Advance 10 ml every 8 hrs to goal rate of 40 ml/hr x 24 hrs. 2) Recommend: Noel 1 pkt BID mixed with 6-8 oz water via PEG tube (unflavored). 3) Recommend: Vitamin C 250 mg BID, zinc sulfate 220 mg once daily, and nephro- vinay. Plan: ? Continue with Jevity 1.2 tube feeds as above ? Noel 1 packet twice daily ? Vitamin C, Nephro-Vinay, zinc #Health Maintenance Disposition: Medsurg, TB rule out DVT prophylaxis: Lovenox GI prophylaxis: Protonix Diet: Jevity 1.2 CODE STATUS: Full code Patient seen and care discussed with my senior resident, Dr. Egan, and my attending physician, Dr. Paige Magallanes, PGY-1 LPatient examined and case discussed with the team including attending physician. Note reviewed, I agree with the care plan as documented. Ms. Bautista is a 73-year-old female who is chronically bedbound, nonverbal at baseline, chronic PEG tube and quadriplegia with history of seizure disorder secondary to cerebral palsy, who was discharged 1 day ago after being treated for influenza and RSV pneumonia. She was sent back from nursing facility for persistent hypoxia, however on repeat chest x-ray in the ED she was found to have a right upper lobe cavitary lesion. Given the new findings, CT chest was ordered for further evaluation, which confirmed a septated cavitary lesion with surrounding edema. Patient is admitted for TB and cocci rule out. Infectious disease Dr Hawk is consulted for further recommendations. Plan: ID discontinued doxycycline and rocephin, transitioned patient to Cefuroxime 500mg BID (05/27 - ) Restarted fluconazole 400mg qD for cocci IgM ++ Pending TB AFB and QF results. - Sina Egan MD, PGY 2 Disclaimer: The document below may not be free of grammatical/phonetic/typographic errors due to use of voice recognition software. This does not dissuade from the commitment to providing health care with the patient's best interest in mind. L Attending Provider Attestation/Addendum I have examined the patient, reviewed labs and imaging findings, discussed the case with the resident(s), and reviewed entered orders. I agree with the plan of care as outlined in this note, with these additional summaries/recommendations: Patient seen at bedside. No acute overnight events. Patient is nonverbal. We will attempt to follow-up with intermediate staff to see if patient has completed PPD in the past. Patient admitted for cavitary lesion seen on chest x- ray. CT chest was obtained which revealed septated irregular cavitary lesion in the right upper lobe measuring 6.4 cm in transverse dimension, bronchiectasis right upper lobe, and significant left base and left upper lobe pneumonia. Case was discussed with in-house pulmonology and findings most likely related to previous aspiration pneumonia causing scarring versus Cocci versus previous tuberculosis causing scarring versus least likely active TB. TB studies obtained and pending results. We will follow-up results when available. If positive we will notify caregivers. Patient was just discharged from the hospital with oral antibiotics to complete treatment course for bacterial pneumonia and IV antibiotics resumed. Continue supplemental oxygen. Sputum cx showing Pseudomonas likely contamination. Cocci IgM returned positive and patient started on fluconazole. Continue home antiepileptics. Continue breathing treatments and supplemental oxygen. Will follow-up TB studies when available. Repeat hematology and chemistry in am. Dr. Paige MD
[2024-05-28 21:00] LABS: Cult AFB Sendout- Sputum* See Sep Rpt
[2024-05-29] VITALS (10 sets, daily range): BP systolic 124–163; BP diastolic 55–84; PULSE 83–98; RESP 16–20; TEMP 36.2–36.6; O2SAT 90–99
[2024-05-29] MEDS: ALBUTEROL/IPRATROPIUM (Duoneb) RT SOL 3 ML NEBU INH ×4 (01:25→18:20)
[2024-05-29 05:52] LABS: Basophils % (Auto) 0 % (0-2.5); Eosinophils # (Auto) 0.3 Thou/mm3 (0.0-0.5); Eosinophils % (Auto) 5 % (0-10); Hematocrit 31.9 % (36.0-46.0); Hemoglobin 10.8 g/dL (12.0-16.0); Immature Granulocytes % (Auto) 1 % (0-0); Immature Granulocytes Auto 0.05 Thou/mm3 (0.00-0.00); Lymphocytes % (Auto) 27 % (10-50); Mean Corpuscular HGB Conc 33.9 g/dl (31.0-37.0); Mean Corpuscular Hemoglobin 32.1 pg (25.0-35.0); Mean Corpuscular Volume 95 fL (80-100); Monocytes # (Auto) 0.9 Thou/mm3 (0.0-0.8); Monocytes % (Auto) 12 % (0-12); Neutrophils # (Auto) 4.1 Thou/mm3 (1.8-7.7); Neutrophils % (Auto) 55 % (37-80); Nucleated Red Blood Cell % 0 /100 WBC (0); Platelet Count 234 Thou/mm3 (140-440); RDW Standard Deviation 46.9 fL (36.4-46.3); Red Blood Count 3.36 Miln/mm3 (4.00-5.20); White Blood Count 7.4 Thou/mm3 (3.6-11.0)
[2024-05-29 06:30] LABS: Albumin, Serum 3.3 gm/dL (3.4-4.8); Anion Gap 5 (7-16); BUN/Creatinine Ratio 45 Ratio (12-20); Blood Urea Nitrogen 18 mg/dL (9-23); Calcium 8.5 mg/dL (8.3-10.6); Calcium (Corrected) 9.1 mg/dL (8.5-10.1); Carbon Dioxide 25.9 mMol/L (20.0-31.0); Chloride 100 mMol/L (98-107); Creatinine (Component) 0.4 mg/dL (0.6-1.3); Estimated Creatinine Clearance 97.6 mL/min (>60); Glucose 128 mg/dL (74-106); Osmolality,Calculated 266 (275-295); Phosphorous 3.1 mg/dL (2.4-5.1); Potassium 5.1 mMol/L (3.4-5.1); Sodium 131 mMol/L (136-145); eGFR > 60 See Note
[2024-05-29] MEDS: BUDESONIDE RT 0.25 MG/2 ML NEBU INH ×2 (07:05→18:20)
[2024-05-29] MEDS: PHENYTOIN 100 MG/4 ML UDC 50 MG GT ×2 (09:33→20:36)
[2024-05-29] MEDS: PANTOPRAZOLE INJ 40 MG VIAL IV (09:33)
[2024-05-29] MEDS: ENOXAPARIN SOD INJ 40 MG/0.4 ML SYRINGE SC (09:33)
[2024-05-29] MEDS: PHENobarbitaL 32.4 MG TABLET GT ×2 (09:34→20:36)
[2024-05-29] MEDS: VIT B12/Vit C/FA (Nephrovite) TABLET 1 TAB GT (09:34)
[2024-05-29] MEDS: ZINC SULFATE 220 MG CAPSULE GT (09:34)
[2024-05-29] MEDS: ASCORBIC ACID 250 MG TABLET GT ×2 (09:34→20:36)
[2024-05-29] MEDS: cefuroxime axetiL 250 MG TABLET 500 MG PO ×2 (09:34→20:35)
[2024-05-29] MEDS: SODIUM CHLORIDE 0.9% 250 ML 250 ML 999 ML IV (09:35)
[2024-05-29] MEDS: FLUCONAZOLE SUSP 40 MG/ML ML 400 MG GT (09:53)
[2024-05-29 10:17] LABS: Magnesium 1.8 mg/dL (1.6-2.6)
--- NOTE | 2024-05-29 11:08 | PD.RESPRO ---
Documentation for date of: 05/29/24 Subjective Subjective Interval history: Patient examined at bedside today. No acute overnight events. Patient's potassium today is 5.1, sodium 131, white count 10.4, hemoglobin 10.8, BUN/creatinine of 18 and 0.4 respectively. Continue with tube feeds at this time with water flushes at 20 cc/hour. No other complaints at this time Exam Vital Signs Temp Pulse Resp BP Pulse Ox O2 Del Method O2 Flow Rate 97.9 F 96 20 163/84 H 96 Nasal Cannula 2 05/29/24 08:00 05/29/24 08:00 05/29/24 08:00 05/29/24 08:00 05/29/24 08:00 05/29/24 08:00 05/29/24 07:06 Narrative Exam General: AAOx1?, Mouth breather, deaf, blind does not appear to be in any acute distress, sleeping, patient is in bottled up state with arms and feet close to body, chronically bedbound, quadriplegic HEENT: Moist mucous membranes, 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 Objective Labs 05/29/24 05:07 05/29/24 05:07 Labs: Laboratory Results - last 24 hr 05/24/24 05/28/24 05/29/24 19:25 12:41 05:07 WBC 7.4 RBC 3.36 L Hgb 10.8 L Hct 31.9 L MCV 95 MCH 32.1 MCHC 33.9 RDW Std Deviation 46.9 H Plt Count 234 Neut % (Auto) 55 Lymph % (Auto) 27 [place] % (Auto) 12 Eos % (Auto) 5 Baso % (Auto) 0 Neut # (Auto) 4.1 Lymph # (Auto) 2.0 [place] # (Auto) 0.9 H Eos # (Auto) 0.3 Baso # (Auto) 0.0 Immature Gran # (Auto) 0.05 H Absolute Nucleated RBC 0.00 Immature Gran % 1 H Nucleated RBC % 0 Sodium 130 L 131 L Potassium 5.0 5.1 Chloride 100 100 Carbon Dioxide 25.5 25.9 Anion Gap 5 L 5 L BUN 15 18 Creatinine 0.3 L 0.4 L Estim Creat Clear Calc 130.1 97.6 eGFR > 60 > 60 BUN/Creatinine Ratio 50 H 45 H Glucose 128 H 128 H Calculated Osmolality 263 L 266 L Calcium 8.3 8.5 Corrected Calcium 8.9 9.1 Phosphorus 2.8 3.1 Magnesium Albumin 3.3 L 3.3 L Mycobacterial Culture See Sep Rpt 05/29/24 09:44 WBC RBC Hgb Hct MCV MCH MCHC RDW Std Deviation Plt Count Neut % (Auto) Lymph % (Auto) [place] % (Auto) Eos % (Auto) Baso % (Auto) Neut # (Auto) Lymph # (Auto) [place] # (Auto) Eos # (Auto) Baso # (Auto) Immature Gran # (Auto) Absolute Nucleated RBC Immature Gran % Nucleated RBC % Sodium Potassium Chloride Carbon Dioxide Anion Gap BUN Creatinine Estim Creat Clear Calc eGFR BUN/Creatinine Ratio Glucose Calculated Osmolality Calcium Corrected Calcium Phosphorus Magnesium 1.8 Albumin Mycobacterial Culture Quality Measures Quality Measures VTE prophylaxis Advance care planning discussed with:: patient Assessment & Plan Assessment Current Active Medications: Generic Name Dose Route Start Last Admin Trade Name Freq PRN Reason Stop Dose Admin Acetaminophen 1,000 mg 05/24/24 17:43 Acetaminophen 325 Mg Tablet PO 06/23/24 17:42 Q6H PRN Fever >100 or pain 1-3 Albuterol/Ipratropium 3 ml 05/24/24 19:00 05/29/24 07:05 Albuterol/Ipratropium (Duoneb) Rt Rylee 3 Ml Nebu INH 06/23/24 18:59 3 ml Q6HRRT CARMITA Administration Ascorbic Acid 250 mg 05/25/24 21:00 05/29/24 09:34 Ascorbic Acid 250 Mg Tablet GT 06/24/24 20:59 250 mg BID CARMITA Administration Budesonide 0.25 mg 05/24/24 19:00 05/29/24 07:05 Budesonide Rt 0.25 Mg/2 Ml Nebu INH 06/23/24 18:59 0.25 mg BIDRT CARMITA Administration Cefuroxime Axetil 500 mg 05/27/24 21:00 05/29/24 09:34 Cefuroxime Axetil 250 Mg Tablet PO 05/31/24 22:50 500 mg BID CARMITA Administration Enoxaparin Sodium 40 mg 05/25/24 09:00 05/29/24 09:33 Enoxaparin Sod Inj 40 Mg/0.4 Ml Syringe SC 06/08/24 08:59 40 mg QDAY CARMITA Administration Fluconazole 400 mg 05/26/24 09:00 05/29/24 09:53 Fluconazole Susp 40 Mg/Ml Ml GT 06/02/24 08:59 400 mg QDAY CARMITA Administration Ondansetron HCl 4 mg 05/24/24 17:43 Ondansetron Inj 2 Mg/Ml Inj 2 Ml IV 06/23/24 17:42 Q6H PRN NAUSEA OR VOMITING Protocol Pantoprazole Sodium 40 mg 05/29/24 09:00 05/29/24 09:33 Pantoprazole Inj 40 Mg Vial IV 06/28/24 08:59 40 mg QDAY CARMITA Administration Phenobarbital 32.4 mg 05/24/24 21:00 05/29/24 09:34 Phenobarbital 32.4 Mg Tablet GT 06/07/24 20:59 32.4 mg BID CARMITA Administration Phenytoin 50 mg 05/25/24 09:30 05/29/24 09:33 Phenytoin 100 Mg/4 Ml Udc GT 06/23/24 20:59 50 mg BID CARMITA Administration Sodium Chloride 3 ml 05/24/24 10:04 Sodium Chloride Rt Rylee 0.9% 3 Ml Nebu INH 06/23/24 10:03 PRN PRN SOLN Vitamin B Complex/Vit C/Folic Acid 1 tab 05/25/24 13:15 05/29/24 09:34 Vit B12/Vit C/Fa (Nephrovite) Tablet GT 06/24/24 13:14 1 tab QDAY CARMITA Administration Zinc Sulfate 220 mg 05/25/24 13:15 05/29/24 09:34 Zinc Sulfate 220 Mg Capsule GT 06/24/24 13:14 220 mg QDAY CARMITA Administration Plan Assessment Daria is a 73 y/o female with PMHx of developmentally delayed, cerebral palsy, epilepsy, quadriplegic, cerebral palsy, blind, deaf, chronic PEG who is currently admitted for TB rule out and evaluation of cavitary lesion #TB rule out #Cavitary lesion, RUL, 6.2 cm #Chronic aspiration pneumonia versus chronic TB versus cocci #Bronchiectasis, RUL DDx: Cocci, TB, bleb, abscess, aspergillus Seen initially on chest x-ray in the right lobe Unlikely abscess as patient does not have fever History is limited so unsure if patient has been exposed to cocci or TB Risk factors, vaccine history, with history all limited due to patient being poor historian No history of immunocompromise documented CT chest shows: Septated irregular cavitary lesion in the right upper lobe, 6.4 cm in transverse dimension Bronchiectasis right upper lobe Spoke with [employer] floor[facility], CT imaging looks like possible chronic aspiration or previous TB for cocci, will need to further workup Patient is a mouth breather and has been admitted for previous aspiration so there is a risk factor for chronic aspiration however will further workup IgM positive, will restart Diflucan In the light of IgM being positive for cocci, TB lower on differential, however IgM can always have false positive Pending AFBs as they have been collected and sent Spoke with [facility]dc, patient not got in a PPD since 1982 and last time it was done it was normal First AFB negative, will follow-up with other 2 samples QuantiFERON gold likely not to come back until at least Monday Plan: ? Pulmonology consulted, appreciate recs ? Infectious disease consulted, appreciate recs ? AFBs x 2, follow-up ? Cocci serologies, follow-up with IgG ? Aspergillus serum, follow-up ? Continue with fluconazole 400 mg ? Airborne precautions ? Follow-up with QuantiFERON gold #Acute hypoxic respiratory failure secondary to #RSV pneumonia, on 05/21 #Influenza A positive, on 05/19 #Superimposed bacterial infection, CAP versus aspiration #Pseudomonas positive sputum culture No sepsis alert initiated Pt has recently come in for influenza A and RSV pneumonia Patient does sound congested on physical exam Was given Solu-Medrol 125 in the ED Chest CT shows: Significant left base and lingular segment left upper lobe pneumonia MRSA negative Infectious disease believes Pseudomonas is not infectious pathogen at this time and patient is not having fevers and will not aggressively treat for it Plan: ? Continue with cefuroxime axetil 500 mg twice daily ? DuoNebs scheduled every 6 hours ? Frequent suctioning ? Oxygen, wean down as tolerated ? Tylenol for fever ? Continue with Mucinex twice daily via G-tube #Euvolemic hypoosmolar hyponatremia, chronic #Hypochloridemia #Hyperkalemia Osmolarity 266 Sodium 131 Potassium 5.1 No hyperkalemic medicines that caused hyperkalemia, will continue to monitor Plan: ? Fluid restriction ? Trend with CMP ? 250 cc bolus of NS x 1 #History of seizure disorder. Chronic Plan: ? Continue home phenobarbital 32.43 times a day ? Continue home phenytoin 50 mg twice a day #History of developmental delay. #History of cerebral palsy on PEG tube. #History of quadriplegia. #History of blindness. #Hx of Deafness Chronic RD recommendations: 1) Jevity 1.2 at 20 ml/hr via PEG tube by pump. Advance 10 ml every 8 hrs to goal rate of 40 ml/hr x 24 hrs. 2) Recommend: Noel 1 pkt BID mixed with 6-8 oz water via PEG tube (unflavored). 3) Recommend: Vitamin C 250 mg BID, zinc sulfate 220 mg once daily, and nephro-vinay. Plan: ? Continue with Jevity 1.2 tube feeds as above ? Noel 1 packet twice daily ? Vitamin C, Nephro-Vinay, zinc #Health Maintenance Disposition: Medsurg, TB rule out DVT prophylaxis: Lovenox GI prophylaxis: Protonix Diet: Jevity 1.2 CODE STATUS: Full code Patient seen and care discussed with my senior resident, Dr. Egan, and my attending physician, Dr. John Magallanes, PGY-1 Patient examined and case discussed with the team including attending physician. Note reviewed, I agree with the care plan as documented. Ms. Bautista is a 73-year-old female who is chronically bedbound, nonverbal at baseline, chronic PEG tube and quadriplegia with history of seizure disorder secondary to cerebral palsy, who was discharged 1 day ago after being treated for influenza and RSV pneumonia. She was sent back from nursing facility for persistent hypoxia, however on repeat chest x-ray in the ED she was found to have a right upper lobe cavitary lesion. Given the new findings, CT chest was ordered for further evaluation, which confirmed a septated cavitary lesion with surrounding edema. Patient is admitted for TB and cocci rule out. Infectious disease Dr Hawk is consulted for further recommendations. Plan: - Per ID recommendations, continue Cefuroxime 500mg BID (05/27 - - Restarted fluconazole 400mg qD for cocci IgM ++ (05/28 - - ID ordered repeat Cocci serology as results seem unlikely given pt is chronically bedbound - Pending TB AFB and QF results - Sina Egan MD, PGY 2 Disclaimer: The document below may not be free of grammatical/phonetic/typographic errors due to use of voice recognition software. This does not dissuade from the commitment to providing health care with the patient's best interest in mind. Attending Provider Attestation/Addendum I have discussed and was present for the essential components of the history, physical examination, diagnosis, and treatment plan with the resident. I agree with the patient's care as documented by the resident and amended herein by me. Mihir Lopez, DO. Although this document has been carefully reviewed, there may still be some phonetic and other typographical errors. These errors are purely grammatical due to imperfections in the software program and should not be construed in any way to compromise the substance of the patient's medical care during this visit.
--- NOTE | 2024-05-29 13:49 | ESPR_ITS ---
Subjective Subjective Interval history: no comment on my NH note. or review of prior cxr's. will stop seeing and f/u prn Exam Vital Signs Temp Pulse Resp BP Pulse Ox O2 Del Method O2 Flow Rate 97.4 F 95 18 139/61 H 97 Nasal Cannula 2 05/29/24 12:00 05/29/24 12:40 05/29/24 12:40 05/29/24 12:00 05/29/24 12:40 05/29/24 12:00 05/29/24 12:40 Narrative Exam limited visit Objective - Internal Medicine Labs 05/29/24 05:07 05/29/24 05:07 Labs: Laboratory Results - last 24 hr 05/24/24 05/29/24 05/29/24 19:25 05:07 09:44 WBC 7.4 RBC 3.36 L Hgb 10.8 L Hct 31.9 L MCV 95 MCH 32.1 MCHC 33.9 RDW Std Deviation 46.9 H Plt Count 234 Neut % (Auto) 55 Lymph % (Auto) 27 [place] % (Auto) 12 Eos % (Auto) 5 Baso % (Auto) 0 Neut # (Auto) 4.1 Lymph # (Auto) 2.0 [place] # (Auto) 0.9 H Eos # (Auto) 0.3 Baso # (Auto) 0.0 Immature Gran # (Auto) 0.05 H Absolute Nucleated RBC 0.00 Immature Gran % 1 H Nucleated RBC % 0 Sodium 131 L Potassium 5.1 Chloride 100 Carbon Dioxide 25.9 Anion Gap 5 L BUN 18 Creatinine 0.4 L Estim Creat Clear Calc 97.6 eGFR > 60 BUN/Creatinine Ratio 45 H Glucose 128 H Calculated Osmolality 266 L Calcium 8.5 Corrected Calcium 9.1 Phosphorus 3.1 Magnesium 1.8 Albumin 3.3 L Mycobacterial Culture See Sep Rpt Assessment & Plan A&P Narrative flu and rsv old rul cavities. unknown ppd status at [place] ok to w/u for tb, but I would start by asking the [place] for their data as pts are to have an annual ppd. cocci ok but seems less likely unless she gets outside. pseucomonas is not a likely pathogen, so stoped it and with pt being afebrile, changed to enteral cefuroxime on monday. will see again prn Time Spent With Patient Time: Total time spent is greater than 50% in coordination of care (as documented) at patient's floor/unit and/or counseling patient:
--- NOTE | 2024-05-29 13:53 | ESPR_ITS ---
Addendum Progress Note Addendum Date of report being addended: 05/29/24 Narrative: test pos 05/25.called [facility] and they do not have a specimen. will re order I can see if afb pos or if cocci pos at [facility], but neither seems likely, and since [facility] has not received a specimen, will re order the cocci as a precaution. if pos, I can see in clinic if referred by primary as outpt. with cxr and cocci from [facility]
--- NOTE | 2024-05-29 13:53 | PD.ADDPROG ---
Addendum Progress Note Addendum Date of report being addended: 05/29/24 Narrative: test pos 05/25.called [facility] and they do not have a specimen. will re order I can see if afb pos or if cocci pos at [facility], but neither seems likely, and since [facility] has not received a specimen, will re order the cocci as a precaution. if pos, I can see in clinic if referred by primary as outpt. with cxr and cocci from [facility]
--- NOTE | 2024-05-29 14:14 | PC.SS ---
Rounding note: pending AFB results.
[2024-05-29 15:35] LABS: Index Value <0.50
[2024-05-30] VITALS (10 sets, daily range): BP systolic 132–157; BP diastolic 73–94; PULSE 80–114; RESP 18–24; TEMP 36.1–36.6; O2SAT 88–99; BMI 21.0
[2024-05-30] MEDS: ALBUTEROL/IPRATROPIUM (Duoneb) RT SOL 3 ML NEBU INH ×4 (01:26→19:35)
[2024-05-30 05:51] LABS: Basophils % (Auto) 1 % (0-2.5); Eosinophils # (Auto) 0.3 Thou/mm3 (0.0-0.5); Eosinophils % (Auto) 5 % (0-10); Hematocrit 32.5 % (36.0-46.0); Hemoglobin 11.1 g/dL (12.0-16.0); Immature Granulocytes % (Auto) 1 % (0-0); Immature Granulocytes Auto 0.06 Thou/mm3 (0.00-0.00); Lymphocytes # (Auto) 2.3 Thou/mm3 (1.0-4.8); Lymphocytes % (Auto) 35 % (10-50); Mean Corpuscular HGB Conc 34.2 g/dl (31.0-37.0); Mean Corpuscular Hemoglobin 32.3 pg (25.0-35.0); Mean Corpuscular Volume 95 fL (80-100); Monocytes # (Auto) 0.9 Thou/mm3 (0.0-0.8); Monocytes % (Auto) 13 % (0-12); Neutrophils % (Auto) 46 % (37-80); Nucleated Red Blood Cell % 0 /100 WBC (0); Platelet Count 259 Thou/mm3 (140-440); RDW Standard Deviation 46.6 fL (36.4-46.3); Red Blood Count 3.44 Miln/mm3 (4.00-5.20); White Blood Count 6.5 Thou/mm3 (3.6-11.0)
[2024-05-30 06:21] LABS: Albumin, Serum 3.4 gm/dL (3.4-4.8); Anion Gap 5 (7-16); BUN/Creatinine Ratio 53 Ratio (12-20); Blood Urea Nitrogen 16 mg/dL (9-23); Calcium 8.7 mg/dL (8.3-10.6); Calcium (Corrected) 9.2 mg/dL (8.5-10.1); Carbon Dioxide 26.6 mMol/L (20.0-31.0); Chloride 101 mMol/L (98-107); Creatinine (Component) 0.3 mg/dL (0.6-1.3); Estimated Creatinine Clearance 130.1 mL/min (>60); Glucose 92 mg/dL (74-106); Osmolality,Calculated 267 (275-295); Phosphorous 3.7 mg/dL (2.4-5.1); Potassium 5.3 mMol/L (3.4-5.1); Sodium 133 mMol/L (136-145); eGFR > 60 See Note
[2024-05-30 06:52] LABS: Aspergillus Ag, Ser* NOT DETECTED
[2024-05-30 07:29] LABS: Coccid Serology, CF (UCD)* See Sep Rpt
[2024-05-30] MEDS: BUDESONIDE RT 0.25 MG/2 ML NEBU INH ×2 (08:07→19:35)
[2024-05-30] MEDS: ZINC SULFATE 220 MG CAPSULE GT (09:38)
[2024-05-30] MEDS: PHENobarbitaL 32.4 MG TABLET GT ×3 (09:39→22:22)
[2024-05-30] MEDS: ASCORBIC ACID 250 MG TABLET GT ×2 (09:39→22:21)
[2024-05-30] MEDS: VIT B12/Vit C/FA (Nephrovite) TABLET 1 TAB GT (09:39)
[2024-05-30] MEDS: PANTOPRAZOLE INJ 40 MG VIAL IV (09:40)
[2024-05-30] MEDS: cefuroxime axetiL 250 MG TABLET 500 MG PO ×2 (09:40→22:21)
[2024-05-30] MEDS: SOD POLYSTYRENE SULFON SUSP 15 GM/60 ML BTL GT (09:41)
[2024-05-30] MEDS: PHENYTOIN 100 MG/4 ML UDC 50 MG GT ×2 (09:41→21:20)
[2024-05-30] MEDS: ENOXAPARIN SOD INJ 40 MG/0.4 ML SYRINGE SC (09:41)
[2024-05-30] MEDS: FLUCONAZOLE SUSP 40 MG/ML ML 400 MG GT (09:42)
[2024-05-30] MEDS: PATIROMER CALCIUM 8.4 GM PACKET (NON-FORM) 4.2 GM PO (11:17)
--- NOTE | 2024-05-30 11:43 | PC.DIETICIAN ---
Nutrition prescription (updated) Jevity 1.2 at 50 ml/hr x 20 hrs via PEG tube by pump (goal). If no IV fluids, water flushes of 20 ml/hr (per MD). -Hold TF for one hour before and after phenytoin administration-
--- NOTE | 2024-05-30 13:51 | PD.RESPRO ---
Documentation for date of: 05/30/24 Subjective Subjective Interval history: Patient examined at bedside today. No acute overnight events. Patient's potassium today is 5.1 -> 5.3 ; started on Veltassa 4.2g qD for persistent hyperkalemia Continue with tube feeds at this time with water flushes at 20 cc/hour. QF negative and AFB x2 negative. ID consulted, appreciate recommendations to repeat Cocci serology. Pt remains at baseline otherwise. Pending last AFB result Exam Vital Signs Temp Pulse Resp BP Pulse Ox O2 Del Method O2 Flow Rate 97.9 F 91 18 132/78 H 96 Nasal Cannula 2 05/30/24 11:45 05/30/24 12:26 05/30/24 12:26 05/30/24 11:45 05/30/24 12:26 05/30/24 11:45 05/30/24 12:26 Narrative Exam Constitutional Non verbal, bedbound and developmental delay at baseline HEENT Vision grossly intact. Patent nares. Trachea midline. Respiratory Chest normal on inspection and mild congestion on auscultation. Cardiovascular S1 and S2 audible, RRR. No murmurs or carotid bruit. No gross JVD. Abdominal Soft and non tender to palpation in all quadrants. BS + Genitourinary No bladder tenderness, no flank pain. Normal to palpation. Musculoskeletal Extremities tone within normal limits. No LE edema. Neurological CN II - XII grossly intact. Extremity motor and sensation grossly intact. Skin Warm, dry and intact. No apparent lesions. Objective Labs 05/30/24 05:05 05/30/24 05:05 Labs: Laboratory Results - last 24 hr 05/25/24 05/27/24 05/28/24 05:51 05:06 11:00 WBC RBC Hgb Hct MCV MCH MCHC RDW Std Deviation Plt Count Neut % (Auto) Lymph % (Auto) [place] % (Auto) Eos % (Auto) Baso % (Auto) Neut # (Auto) Lymph # (Auto) [place] # (Auto) Eos # (Auto) Baso # (Auto) Immature Gran # (Auto) Absolute Nucleated RBC Immature Gran % Nucleated RBC % Sodium Potassium Chloride Carbon Dioxide Anion Gap BUN Creatinine Estim Creat Clear Calc eGFR BUN/Creatinine Ratio Glucose Calculated Osmolality Calcium Corrected Calcium Phosphorus Albumin Mycobacterial Culture See Sep Rpt Aspergillus Ag (EIA) NOT DETECTED Aspergillus Index Value <0.50 TB Test (QFT) See Sep Rpt 05/30/24 05:05 WBC 6.5 RBC 3.44 L Hgb 11.1 L Hct 32.5 L MCV 95 MCH 32.3 MCHC 34.2 RDW Std Deviation 46.6 H Plt Count 259 Neut % (Auto) 46 Lymph % (Auto) 35 [place] % (Auto) 13 H Eos % (Auto) 5 Baso % (Auto) 1 Neut # (Auto) 3.0 Lymph # (Auto) 2.3 [place] # (Auto) 0.9 H Eos # (Auto) 0.3 Baso # (Auto) 0.0 Immature Gran # (Auto) 0.06 H Absolute Nucleated RBC 0.00 Immature Gran % 1 H Nucleated RBC % 0 Sodium 133 L Potassium 5.3 H Chloride 101 Carbon Dioxide 26.6 Anion Gap 5 L BUN 16 Creatinine 0.3 L Estim Creat Clear Calc 130.1 eGFR > 60 BUN/Creatinine Ratio 53 H Glucose 92 Calculated Osmolality 267 L Calcium 8.7 Corrected Calcium 9.2 Phosphorus 3.7 Albumin 3.4 Mycobacterial Culture Aspergillus Ag (EIA) Aspergillus Index Value TB Test (QFT) Quality Measures Quality Measures VTE prophylaxis Advance care planning discussed with:: patient and legal surragate Assessment & Plan Assessment Current Active Medications: Generic Name Dose Route Start Last Admin Trade Name Freq PRN Reason Stop Dose Admin Acetaminophen 1,000 mg 05/30/24 09:11 Acetaminophen 500 Mg Tablet PO 06/23/24 17:42 Q6H PRN Fever >100 or pain 1-3 Albuterol/Ipratropium 3 ml 05/24/24 19:00 05/30/24 12:24 Albuterol/Ipratropium (Duoneb) Rt Rylee 3 Ml Nebu INH 06/23/24 18:59 3 ml Q6HRRT CARMITA Administration Ascorbic Acid 250 mg 05/25/24 21:00 05/30/24 09:39 Ascorbic Acid 250 Mg Tablet GT 06/24/24 20:59 250 mg BID CARMITA Administration Budesonide 0.25 mg 05/24/24 19:00 05/30/24 08:07 Budesonide Rt 0.25 Mg/2 Ml Nebu INH 06/23/24 18:59 0.25 mg BIDRT CARMITA Administration Cefuroxime Axetil 500 mg 05/27/24 21:00 05/30/24 09:40 Cefuroxime Axetil 250 Mg Tablet PO 05/31/24 22:50 500 mg BID CARMITA Administration Enoxaparin Sodium 40 mg 05/25/24 09:00 05/30/24 09:41 Enoxaparin Sod Inj 40 Mg/0.4 Ml Syringe SC 06/08/24 08:59 40 mg QDAY CARMITA Administration Fluconazole 400 mg 05/26/24 09:00 05/30/24 09:42 Fluconazole Susp 40 Mg/Ml Ml GT 06/02/24 08:59 400 mg QDAY CARMITA Administration Ondansetron HCl 4 mg 05/24/24 17:43 Ondansetron Inj 2 Mg/Ml Inj 2 Ml IV 06/23/24 17:42 Q6H PRN NAUSEA OR VOMITING Protocol Pantoprazole Sodium 40 mg 05/29/24 09:00 05/30/24 09:40 Pantoprazole Inj 40 Mg Vial IV 06/28/24 08:59 40 mg QDAY CARMITA Administration Patiromer 4.2 gm 05/30/24 10:00 05/30/24 11:17 Patiromer Calcium 8.4 Gm Packet (Non-Form) PO 06/29/24 09:59 4.2 gm DAILY CARMITA Administration Phenobarbital 32.4 mg 05/30/24 09:00 05/30/24 09:39 Phenobarbital 32.4 Mg Tablet GT 06/13/24 08:59 32.4 mg TID CARMITA Administration Phenytoin 50 mg 05/25/24 09:30 05/30/24 09:41 Phenytoin 100 Mg/4 Ml Udc GT 06/23/24 20:59 50 mg BID CARMITA Administration Sodium Chloride 3 ml 05/24/24 10:04 Sodium Chloride Rt Rylee 0.9% 3 Ml Nebu INH 06/23/24 10:03 PRN PRN SOLN Vitamin B Complex/Vit C/Folic Acid 1 tab 05/25/24 13:15 05/30/24 09:39 Vit B12/Vit C/Fa (Nephrovite) Tablet GT 06/24/24 13:14 1 tab QDAY CARMITA Administration Zinc Sulfate 220 mg 05/25/24 13:15 05/30/24 09:38 Zinc Sulfate 220 Mg Capsule GT 06/24/24 13:14 220 mg QDAY CARMITA Administration Plan Assessment Daria is a 73 y/o female with PMHx of developmentally delayed, cerebral palsy, epilepsy, quadriplegic, cerebral palsy, blind, deaf, chronic PEG who is currently admitted for TB rule out and evaluation of cavitary lesion Acute hypoxic respiratory failure secondary to RSV pneumonia, on 05/21 Influenza A positive, on 05/19 Pseudomonas PNA Aspiration pneumonia in the setting of RT upper lobe cavitary lesion - TB rule out Bronchiectasis DDx: Cocci, TB, bleb, abscess, aspergillus CT chest: Septated irregular cavitary lesion in the right upper lobe, 6.4 cm in transverse dimension. Bronchiectasis right upper lobe Seen initially on chest x-ray in the right lobe. Unlikely abscess as patient does not have fever Pt has recently come in for influenza A and RSV pneumonia. Patient does sound congested on physical exam. History is limited so unsure if patient has been exposed to cocci or TB. Risk factors, vaccine history, with history all limited due to patient being poor historian Spoke with long term, patient not got in a PPD since 1982 and last time it was done it was normal - Cocci IgM positive, will restart Diflucan - MRSA negative - AFB x2 negative - QuantiFERON : negative Plan: - IV Solu-Medrol 125 x1 in the ED - Pulmonology consulted, appreciate recs. Per Dr Hurtado, CT imaging looks like possible chronic aspiration or previous TB for cocci, will need to further workup ? Infectious disease consulted, appreciate recs. - AFB : follow-up with other the last sample - Cocci serologies, follow-up with IgG as per ID Dr Hawk, IgM can always have false positive ? On Cefuroxime 500 mg twice daily (05/27 - 05/31) ? DuoNebs scheduled every 6 hours ? Aspergillus serum, follow-up ? Continue with fluconazole 400 mg ? Airborne precautions and Frequent suctioning ? Tylenol for fever ? Continue with Mucinex twice daily via G-tube Euvolemic hypoosmolar hyponatremia, chronic Hyperkalemia Osmolarity 266 ; Sodium 131 Potassium 5.3 -> 5.1 -> 5.3 Plan: - 05/30 : Started on Veltassa 4.2 g daily - No hyperkalemic medicines that caused hyperkalemia, will continue to monitor History of seizure disorder Chronic No breakthrough seizures at this time Plan: ? Continue home phenobarbital 32.43 times a day ? Continue home phenytoin 50 mg twice a day Chronic PEG tube. Quadriplegia. 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 Continue Jevity 1.2 at 20 ml/hr via PEG tube by pump. Advance 10 ml every 8 hrs to goal rate of 40 ml/hr x 24 hrs. ? Noel 1 pkt BID mixed with 6-8 oz water via PEG tube (unflavored). ? Vitamin C 250 mg BID, zinc sulfate 220 mg once daily, and nephro-vinay. Health Maintenance Disposition: Medsurg, TB rule out . Pending 3rd AFB result, AFB x2 negative DVT prophylaxis: Lovenox GI prophylaxis: Protonix Diet: Jevity 1.2 TF CODE STATUS: Full code Plan of care discussed with attending Sina Munoz M.D. PGY2 Disclaimer: This note was dictated by speech recognition. Minor errors in post adoption coordinator may be present due to voice recognition software. Attending Provider Attestation/Addendum I have discussed and was present for the essential components of the history, physical examination, diagnosis, and treatment plan with the resident. I agree with the patient's care as documented by the resident and amended herein by me. Mihir Lopez, DO. Patient seen and evaluated this AM. No acute events overnight, vital signs stable, patient afebrile, labs largely unremarkable, potassium 5.3. AFBs negative x 2, quant of urine gold negative, pending 1 more AFB. Per infectious disease, will also repeat cocci testing. Discharge pending lab results and specialist recommendations, likely in 1 to 2 days. Although this document has been carefully reviewed, there may still be some phonetic and other typographical errors. These errors are purely grammatical due to imperfections in the software program and should not be construed in any way to compromise the substance of the patient's medical care during this visit.
--- NOTE | 2024-05-30 15:33 | PC.SS ---
Rounding note: pending final cultures.
[2024-05-31] VITALS (10 sets, daily range): BP systolic 123–156; BP diastolic 73–88; PULSE 81–108; RESP 18–22; TEMP 36.3–36.7; O2SAT 89–97
[2024-05-31] MEDS: ALBUTEROL/IPRATROPIUM (Duoneb) RT SOL 3 ML NEBU INH ×4 (01:13→19:21)
[2024-05-31] MEDS: PHENobarbitaL 32.4 MG TABLET GT ×3 (05:46→22:07)
[2024-05-31] MEDS: BUDESONIDE RT 0.25 MG/2 ML NEBU INH ×2 (06:56→19:22)
[2024-05-31 06:57] LABS: Basophils % (Auto) 1 % (0-2.5); Eosinophils # (Auto) 0.3 Thou/mm3 (0.0-0.5); Eosinophils % (Auto) 5 % (0-10); Hematocrit 33.6 % (36.0-46.0); Hemoglobin 11.3 g/dL (12.0-16.0); Immature Granulocytes % (Auto) 1 % (0-0); Immature Granulocytes Auto 0.06 Thou/mm3 (0.00-0.00); Lymphocytes # (Auto) 1.9 Thou/mm3 (1.0-4.8); Lymphocytes % (Auto) 30 % (10-50); Mean Corpuscular HGB Conc 33.6 g/dl (31.0-37.0); Mean Corpuscular Hemoglobin 31.7 pg (25.0-35.0); Mean Corpuscular Volume 94 fL (80-100); Monocytes # (Auto) 0.7 Thou/mm3 (0.0-0.8); Monocytes % (Auto) 11 % (0-12); Neutrophils # (Auto) 3.3 Thou/mm3 (1.8-7.7); Neutrophils % (Auto) 53 % (37-80); Nucleated Red Blood Cell % 0 /100 WBC (0); Platelet Count 291 Thou/mm3 (140-440); RDW Standard Deviation 46.3 fL (36.4-46.3); Red Blood Count 3.57 Miln/mm3 (4.00-5.20); White Blood Count 6.2 Thou/mm3 (3.6-11.0)
[2024-05-31 07:16] LABS: Albumin, Serum 3.4 gm/dL (3.4-4.8); Anion Gap 6 (7-16); BUN/Creatinine Ratio 87 Ratio (12-20); Blood Urea Nitrogen 26 mg/dL (9-23); Calcium 8.7 mg/dL (8.3-10.6); Calcium (Corrected) 9.2 mg/dL (8.5-10.1); Carbon Dioxide 28.8 mMol/L (20.0-31.0); Chloride 99 mMol/L (98-107); Creatinine (Component) 0.3 mg/dL (0.6-1.3); Estimated Creatinine Clearance 130.1 mL/min (>60); Glucose 136 mg/dL (74-106); Osmolality,Calculated 274 (275-295); Phosphorous 3.4 mg/dL (2.4-5.1); Potassium 4.1 mMol/L (3.4-5.1); Sodium 134 mMol/L (136-145); eGFR > 60 See Note
--- NOTE | 2024-05-31 08:47 | PD.IDPROG ---
Subjective Subjective Interval history: signed off the other day but asked to comment on neg qtf and afb's. has large rul cavity noted. might be old cocci. lab apparently did not send out the cocci before for confirmation. Exam Vital Signs Temp Pulse Resp BP Pulse Ox O2 Del Method O2 Flow Rate 97.4 F 101 H 18 123/75 93 L Nasal Cannula 3 05/31/24 08:00 05/31/24 08:00 05/31/24 08:00 05/31/24 08:00 05/31/24 08:00 05/31/24 08:00 05/31/24 08:00 Narrative Exam O2 about baseline at 3 lpm Objective - Internal Medicine Labs 05/31/24 05:59 05/31/24 05:59 Labs: Laboratory Results - last 24 hr 05/28/24 05/31/24 20:40 05:59 WBC 6.2 RBC 3.57 L Hgb 11.3 L Hct 33.6 L MCV 94 MCH 31.7 MCHC 33.6 RDW Std Deviation 46.3 Plt Count 291 D Neut % (Auto) 53 Lymph % (Auto) 30 [place] % (Auto) 11 Eos % (Auto) 5 Baso % (Auto) 1 Neut # (Auto) 3.3 Lymph # (Auto) 1.9 [place] # (Auto) 0.7 Eos # (Auto) 0.3 Baso # (Auto) 0.0 Immature Gran # (Auto) 0.06 H Absolute Nucleated RBC 0.00 Immature Gran % 1 H Nucleated RBC % 0 Sodium 134 L Potassium 4.1 D Chloride 99 Carbon Dioxide 28.8 Anion Gap 6 L BUN 26 H Creatinine 0.3 L Estim Creat Clear Calc 130.1 eGFR > 60 BUN/Creatinine Ratio 87 H Glucose 136 H Calculated Osmolality 274 L Calcium 8.7 Corrected Calcium 9.2 Phosphorus 3.4 Albumin 3.4 Mycobacterial Culture See Sep Rpt Assessment & Plan A&P Narrative flu and rsv old rul cavities. qtf neg here. afb's neg x 3. cocci pos locally, lab did not send out cocci pending at [facility] but seems less likely unless she gets outside. pseudomonas is an unlikely pathogen ok for back to prior place of residence w/o tb isolation. no tb. can not verify cocci. finished other abx and afebrile ok to continue flucon pending the serology at [facility] as lab elected to not send out the prior specimen from last week. Time Spent With Patient Time: Total time spent is greater than 50% in coordination of care (as documented) at patient's floor/unit and/or counseling patient:
--- NOTE | 2024-05-31 09:15 | PD.ADDPROG ---
Addendum Progress Note Addendum Date of report being addended: 05/31/24 Narrative: doing ok. exam limited but benign. infection prevention would like me to treat her for the pseudomonas, but that has not been done and she has done ok. so it is an unlikely pathogen in this setting
--- NOTE | 2024-05-31 09:41 | PD.RESPRO ---
Documentation for date of: 05/31/24 Subjective Subjective Interval history: Patient was seen and examined at bedside. No acute overnight events. Patient's QuantiFERON is negative and AFB x 3 is negative. Pending cultures and cocci confirmatory testing from [facility]. Will continue current management and monitor patient. Exam Vital Signs Temp Pulse Resp BP Pulse Ox O2 Del Method O2 Flow Rate 97.4 F 101 H 18 123/75 93 L Nasal Cannula 3 05/31/24 08:00 05/31/24 08:00 05/31/24 08:00 05/31/24 08:00 05/31/24 08:00 05/31/24 08:00 05/31/24 08:00 Narrative Exam Gen: Well-nourished elderly female, not in distress. HEENT: NCAT, PERRLA, MMM, anicteric conjunctivae, large nevus over right eye and forehead, poor dentition. CVS: normal S1 and S2. RRR. No M/R/G. Resp: minimal crackles B/L. No rhonchi, rales or wheezing. Abd: soft, non-tender, non-distended. BS+ in all [address] and is clean. MSK: Good ROM in BUE & BLE. No rash. Trace edema BLE. Neuro: limited exam due to medical condition. Objective Labs 05/31/24 05:59 05/31/24 05:59 Labs: Laboratory Results - last 24 hr 05/28/24 05/31/24 20:40 05:59 WBC 6.2 RBC 3.57 L Hgb 11.3 L Hct 33.6 L MCV 94 MCH 31.7 MCHC 33.6 RDW Std Deviation 46.3 Plt Count 291 D Neut % (Auto) 53 Lymph % (Auto) 30 [place] % (Auto) 11 Eos % (Auto) 5 Baso % (Auto) 1 Neut # (Auto) 3.3 Lymph # (Auto) 1.9 Long # (Auto) 0.7 Eos # (Auto) 0.3 Baso # (Auto) 0.0 Immature Gran # (Auto) 0.06 H Absolute Nucleated RBC 0.00 Immature Gran % 1 H Nucleated RBC % 0 Sodium 134 L Potassium 4.1 D Chloride 99 Carbon Dioxide 28.8 Anion Gap 6 L BUN 26 H Creatinine 0.3 L Estim Creat Clear Calc 130.1 eGFR > 60 BUN/Creatinine Ratio 87 H Glucose 136 H Calculated Osmolality 274 L Calcium 8.7 Corrected Calcium 9.2 Phosphorus 3.4 Albumin 3.4 Mycobacterial Culture See Sep Rpt Quality Measures Quality Measures VTE prophylaxis Advance care planning discussed with:: patient Assessment & Plan Assessment Current Active Medications: Generic Name Dose Route Start Last Admin Trade Name Freq PRN Reason Stop Dose Admin Acetaminophen 1,000 mg 05/30/24 09:11 Acetaminophen 500 Mg Tablet PO 06/23/24 17:42 Q6H PRN Fever >100 or pain 1-3 Albuterol/Ipratropium 3 ml 05/24/24 19:00 05/31/24 06:56 Albuterol/Ipratropium (Duoneb) Rt Rylee 3 Ml Nebu INH 06/23/24 18:59 3 ml Q6HRRT CARMITA Administration Ascorbic Acid 250 mg 05/25/24 21:00 05/30/24 22:21 Ascorbic Acid 250 Mg Tablet GT 06/24/24 20:59 250 mg BID CARMITA Administration Budesonide 0.25 mg 05/24/24 19:00 05/31/24 06:56 Budesonide Rt 0.25 Mg/2 Ml Nebu INH 06/23/24 18:59 0.25 mg BIDRT CARMITA Administration Cefuroxime Axetil 500 mg 05/27/24 21:00 05/30/24 22:21 Cefuroxime Axetil 250 Mg Tablet PO 05/31/24 22:50 500 mg BID CARMITA Administration Enoxaparin Sodium 40 mg 05/25/24 09:00 05/30/24 09:41 Enoxaparin Sod Inj 40 Mg/0.4 Ml Syringe SC 06/08/24 08:59 40 mg QDAY CARMITA Administration Fluconazole 400 mg 05/26/24 09:00 05/30/24 09:42 Fluconazole Susp 40 Mg/Ml Ml GT 06/02/24 08:59 400 mg QDAY CARMITA Administration Ondansetron HCl 4 mg 05/24/24 17:43 Ondansetron Inj 2 Mg/Ml Inj 2 Ml IV 06/23/24 17:42 Q6H PRN NAUSEA OR VOMITING Protocol Pantoprazole Sodium 40 mg 05/29/24 09:00 05/30/24 09:40 Pantoprazole Inj 40 Mg Vial IV 06/28/24 08:59 40 mg QDAY CARMITA Administration Patiromer 4.2 gm 05/30/24 10:00 05/30/24 11:17 Patiromer Calcium 8.4 Gm Packet (Non-Form) PO 06/29/24 09:59 4.2 gm DAILY CARMITA Administration Phenobarbital 32.4 mg 05/30/24 09:00 05/31/24 05:46 Phenobarbital 32.4 Mg Tablet GT 06/13/24 08:59 32.4 mg TID CARMITA Administration Phenytoin 50 mg 05/25/24 09:30 05/30/24 21:20 Phenytoin 100 Mg/4 Ml Udc GT 06/23/24 20:59 50 mg BID CARMITA Administration Sodium Chloride 3 ml 05/24/24 10:04 Sodium Chloride Rt Rylee 0.9% 3 Ml Nebu INH 06/23/24 10:03 PRN PRN SOLN Vitamin B Complex/Vit C/Folic Acid 1 tab 05/25/24 13:15 05/30/24 09:39 Vit B12/Vit C/Fa (Nephrovite) Tablet GT 06/24/24 13:14 1 tab QDAY CARMITA Administration Zinc Sulfate 220 mg 05/25/24 13:15 05/30/24 09:38 Zinc Sulfate 220 Mg Capsule GT 06/24/24 13:14 220 mg QDAY CARMITA Administration Plan Assessment Daria is a 73 y/o female with PMHx of developmentally delayed, cerebral palsy, epilepsy, quadriplegic, cerebral palsy, blind, deaf, chronic PEG who is currently admitted for TB rule out and evaluation of cavitary lesion Acute hypoxic respiratory failure secondary to RSV pneumonia, on 05/21 Influenza A positive, on 05/19 Pseudomonas PNA Aspiration pneumonia in the setting of RT upper lobe cavitary lesion - TB rule out Bronchiectasis DDx: Cocci, TB, bleb, abscess, aspergillus CT chest: Septated irregular cavitary lesion in the right upper lobe, 6.4 cm in transverse dimension. Bronchiectasis right upper lobe Seen initially on chest x-ray in the right lobe. Unlikely abscess as patient does not have fever Pt has recently come in for influenza A and RSV pneumonia. Patient does sound congested on physical exam. History is limited so unsure if patient has been exposed to cocci or TB. Risk factors, vaccine history, with history all limited due to patient being poor historian Spoke with retirement, patient not got in a PPD since 1982 and last time it was done it was normal - Cocci IgM positive, will restart Diflucan - MRSA negative - AFB x3 negative - QuantiFERON : negative Plan: - IV Solu-Medrol 125 x1 in the ED - Pulmonology consulted, appreciate recs. Per Dr Hurtado, CT imaging looks like possible chronic aspiration or previous TB for cocci, will need to further workup ? Infectious disease consulted, appreciate recs. - AFB : follow-up with other the last sample - Cocci serologies, follow-up with IgG as per ID Dr Hawk, IgM can always have false positive ? On Cefuroxime 500 mg twice daily (05/27 - 05/31) ? DuoNebs scheduled every 6 hours ? Aspergillus serum, follow-up ? Continue with fluconazole 400 mg ? Airborne precautions and Frequent suctioning ? Tylenol for fever ? Continue with Mucinex twice daily via G-tube Euvolemic hypoosmolar hyponatremia, chronic Hyperkalemia Osmolarity 266 ; Sodium 131 Potassium 5.3 -> 5.1 -> 5.3 Plan: - 05/30 : Started on Veltassa 4.2 g daily - No hyperkalemic medicines that caused hyperkalemia, will continue to monitor History of seizure disorder Chronic No breakthrough seizures at this time Plan: ? Continue home phenobarbital 32.43 times a day ? Continue home phenytoin 50 mg twice a day Chronic PEG tube. Quadriplegia. Legally Blind Legally Deafness secondary to Cerebral palsy Developmental delay Consulted java jsf developer, appreciate recs Plan: ? Continue Jevity 1.2 at 20 ml/hr via PEG tube by pump. Advance 10 ml every 8 hrs to goal rate of 40 ml/hr x 24 hrs. ? Noel 1 pkt BID mixed with 6-8 oz water via PEG tube (unflavored). ? Vitamin C 250 mg BID, zinc sulfate 220 mg once daily, and nephro-vinay. Health Maintenance Disposition: Medsurg, TB rule out. AFB negative x3. Pending cocci r/o from [facility]. DVT prophylaxis: Lovenox. GI prophylaxis: Protonix. Diet: Jevity 1.2 TF. CODE STATUS: Full code. Plan of care discussed with attending Dr. Lopez. Venancio Nuñez MD, PGY 2. Disclaimer: This note was dictated by speech recognition. Minor errors in byproducts extractor may be present due to voice recognition software. Attending Provider Attestation/Addendum I have discussed and was present for the essential components of the history, physical examination, diagnosis, and treatment plan with the resident. I agree with the patient's care as documented by the resident and amended herein by me. Mihir Lopez DO. Although this document has been carefully reviewed, there may still be some phonetic and other typographical errors. These errors are purely grammatical due to imperfections in the software program and should not be construed in any way to compromise the substance of the patient's medical care during this visit.
[2024-05-31] MEDS: cefuroxime axetiL 250 MG TABLET 500 MG PO ×2 (10:11→22:09)
[2024-05-31] MEDS: PANTOPRAZOLE INJ 40 MG VIAL IV (10:12)
[2024-05-31] MEDS: PHENYTOIN 100 MG/4 ML UDC 50 MG GT ×2 (10:13→22:06)
[2024-05-31] MEDS: ASCORBIC ACID 250 MG TABLET GT ×2 (10:13→22:07)
[2024-05-31] MEDS: VIT B12/Vit C/FA (Nephrovite) TABLET 1 TAB GT (10:13)
[2024-05-31] MEDS: ZINC SULFATE 220 MG CAPSULE GT (10:13)
[2024-05-31] MEDS: ENOXAPARIN SOD INJ 40 MG/0.4 ML SYRINGE SC (10:14)
[2024-05-31] MEDS: PATIROMER CALCIUM 8.4 GM PACKET (NON-FORM) 4.2 GM PO (10:15)
[2024-05-31] MEDS: FLUCONAZOLE SUSP 40 MG/ML ML 400 MG GT (10:22)
--- NOTE | 2024-05-31 11:43 | PD.RESDS ---
Planned Discharge Date 05/31/24 DS: Providers Provider Date of admission: 05/24/24 17:43 Primary care physician: Physician No Primary/Family Admitting Provider: Bao Gibson MD Attending Provider on Admission: Madhav Lopez DO Consults: 05/24/24 17:49 Consult to Infectious Diseases Routine Comment: TB rule out, possible cavitary lesion Consulting Provider: Timmy Hawk Consult to Pulmonology Routine Comment: possible cavitary lesion/ TB rule out Consulting Provider: Marck Killian I 05/24/24 18:21 Referral Registered Dietitian Routine Comment: 05/26/24 22:58 Referral Wound Care Routine Comment: Attending Provider on DC: Venancio Nuñez MD Discharging Provider: Venancio Nuñez MD DS: Diagnosis Problem List Completed Was Problem List Reviewed/Reconciled?: Yes Hospital Course Hospital Course Hospital course: Patient is a 73-year-old female with a significant past medical history of developmental delay, cerebral palsy, epilepsy, quadriplegia, blindness, deafness, chronic PEG tube who came from her assisted facility with complaints of hypoxia with an SpO2 level of 89% despite breathing treatments their facility. Patient subsequently admitted for further workup of the patient's hypoxia. Patient was also recently discharged with positive testing for RSV and influenza A however the influenza was not treated, please refer to specific notes for further details. An initial CT chest was ordered with contrast and did show some cavitary lesions in the patient's right lung lobe hence the patient was placed in isolation for TB rule out. Patient was also tested for coccidiomycosis which was initially positive for IgM on 05/25 however per infectious disease, it was suspicious hence repeat was ordered and still pending however was started on fluconazole 400 mg daily regardless. Patient will be discharged on this medication and can follow-up with Dr Hawk, infectious disease on an outpatient basis going forward until resolution. The patient's AFB testing was negative x 3, QuantiFERON gold also negative for her TB rule out, patient was subsequently taken off isolation.. The patient's sputum culture on 05/24 also demonstrated Pseudomonas aeruginosa which was not treated however per infectious disease, she has done well without specific treatment for Pseudomonas, was determined to be an unlikely pathogen in this setting. Per infectious disease, will continue fluconazole for 100 mg daily until final serologies return however can be discharged black to her residence without TB isolation. If the repeat cocci testing is negative, can likely stop the fluconazole however would recommend following up with Dr Hawk and her primary care provider for further workup and evaluation. Patient presently on 3 L, SpO2 ranged from 88 to 92%, home oxygen is ordered, can go home on supplemental O2 until pneumonia resolves. Caregivers are instructed to bring the patient back to the emergency department for persistent or worsening symptoms. The patient was afebrile and tolerating tube feeds at time of discharge. Significant problem list: #Coccidiomycosis #RSV #Influenza A #? Pseudomonas pneumonia unlikely #Acute hypoxic respiratory failure secondary to above #Bronchiectasis Time Spent with Patient Time attestation: Total time spent providing and/or coordinating discharge services: Exam Vital Signs Temp Pulse Resp BP Pulse Ox O2 Del Method O2 Flow Rate 97.4 F 101 H 18 123/75 93 L Nasal Cannula 3 05/31/24 08:00 05/31/24 08:00 05/31/24 08:00 05/31/24 08:00 05/31/24 08:00 05/31/24 08:00 05/31/24 08:00 Discharge Plan Plan Patient Disposition: HOME (Self Care) Disposition Comment: Back to go home facility Prescriptions/Referrals Prescriptions/Med Rec: New fluconazole 40 mg/mL Suspension For Reconstitution 400 mg G-tube QDAY 30 Days Qty: 300 0RF Continued loratadine 10 mg Tablet 10 mg feeding tube QDAY polyethylene glycol 3350 [ClearLax] 17 gram powder in packet 17 g feeding tube PRN PRN (Reason: constipation) hydroxyzine HCl 10 mg/5 mL solution 10 mg PO QID PRN (Reason: itching) phenytoin 50 mg Tablet,Chewable 50 mg G-tube BID phenobarbital 32.4 mg Tablet 32.4 mg feeding tube TID Referrals: No Primary/Family,Physician [Primary Care Provider] - Patient/Caregiver Discharge Instructions Print Language: Indonesian Stand Alone Forms: Jessica Award Info., Patient Portal Info Letter Quality Discharge Quality Measures VTE prophylaxis
--- NOTE | 2024-05-31 15:54 | PC.SS ---
Follow up note: Patient has d/c orders. SS contacted facility and spoke to [place]. She's agreeable with d/c. IMM rights discussed. [facility] requested. SS went through [facility] with a reference# [id number] for a berry picker of 5:30-6pm wing.
--- NOTE | 2024-05-31 16:09 | PC.SS ---
Addendum entered by Eva Dailey 05/31/24 16:35: SS contacted [facility] to cancel transport. 02 sats pending. Facility prefers d/c in the morning. 02 will be delivered tomorrow morning to facility. [facility] will need to be set up for Sat. a.m. Nursing updated. Original Note: Follow up note: Nursing updated me that patient now needs new 02. SS informed we need 02 RA sats for 02 order. Documentation will be sent to [facility], [place]. Updated facility who is in agreement.
--- NOTE | 2024-05-31 16:29 | PC.NURSE ---
Addendum entered by Varsha Monique RN 06/01/24 18:58: pt. on 3 L NC Original Note: pt. has discharge orders. Call the DR. Lopez about the concern of pt. getting discharge and she is on 3 L O2 sustaining 93% AND SHE DOES NOT USE OXYGEN AT HOME. PER CHECK THE PT. O2 saturation at room air at rest. Pt. at room air at rest saturates to 87% on RA . Put pt. back immedeatly to O2 at 3 L and pt. saturating back to 94%
--- NOTE | 2024-05-31 23:01 | PC.NURSE ---
patient was suctioned and has bloody sputum, patient suctioned now, has clear secretions. Notified Dr. Paul regarding this, no new orders received.
[2024-06-01] VITALS (11 sets, daily range): BP systolic 134–188; BP diastolic 72–88; PULSE 84–102; RESP 16–24; TEMP 36–36.5; O2SAT 91–99
[2024-06-01] MEDS: ALBUTEROL/IPRATROPIUM (Duoneb) RT SOL 3 ML NEBU INH ×4 (00:40→18:27)
[2024-06-01 05:21] LABS: Basophils % (Auto) 0 % (0-2.5); Eosinophils # (Auto) 0.3 Thou/mm3 (0.0-0.5); Eosinophils % (Auto) 5 % (0-10); Hematocrit 33.1 % (36.0-46.0); Immature Granulocytes % (Auto) 1 % (0-0); Immature Granulocytes Auto 0.05 Thou/mm3 (0.00-0.00); Lymphocytes % (Auto) 29 % (10-50); Mean Corpuscular HGB Conc 33.2 g/dl (31.0-37.0); Mean Corpuscular Hemoglobin 31.6 pg (25.0-35.0); Mean Corpuscular Volume 95 fL (80-100); Monocytes # (Auto) 0.9 Thou/mm3 (0.0-0.8); Monocytes % (Auto) 13 % (0-12); Neutrophils # (Auto) 3.5 Thou/mm3 (1.8-7.7); Neutrophils % (Auto) 52 % (37-80); Nucleated Red Blood Cell % 0 /100 WBC (0); Platelet Count 318 Thou/mm3 (140-440); RDW Standard Deviation 46.6 fL (36.4-46.3); Red Blood Count 3.48 Miln/mm3 (4.00-5.20); White Blood Count 6.7 Thou/mm3 (3.6-11.0)
[2024-06-01] MEDS: PHENobarbitaL 32.4 MG TABLET GT ×3 (05:32→21:07)
[2024-06-01 05:48] LABS: Albumin, Serum 3.4 gm/dL (3.4-4.8); Anion Gap 5 (7-16); BUN/Creatinine Ratio 58 Ratio (12-20); Blood Urea Nitrogen 23 mg/dL (9-23); Calcium 8.9 mg/dL (8.3-10.6); Calcium (Corrected) 9.4 mg/dL (8.5-10.1); Chloride 103 mMol/L (98-107); Creatinine (Component) 0.4 mg/dL (0.6-1.3); Estimated Creatinine Clearance 97.6 mL/min (>60); Glucose 131 mg/dL (74-106); Osmolality,Calculated 279 (275-295); Phosphorous 4.1 mg/dL (2.4-5.1); Potassium 4.3 mMol/L (3.4-5.1); Sodium 137 mMol/L (136-145); eGFR > 60 See Note
[2024-06-01] MEDS: BUDESONIDE RT 0.25 MG/2 ML NEBU INH ×3 (06:36→18:28)
--- NOTE | 2024-06-01 07:06 | ESPR_ITS ---
Documentation for date of: 06/01/24 Subjective Subjective Interval history: Patient was seen and examined at bedside. Overnight patient started to desat to the low 70s for which was started on oxygen per nasal cannula and later transition to oxy mask 4 L. Per patient nurse was having some blood in sputum during deep suctioning for secretions no melena's or hematochezia noted per patient nurse. Pending [facility] confirmatory cocci serology. Due to patient increased oxygen requirements overnight possibly secondary to reaspiration or increase secretions and and low O2 saturation we will continue to monitor for 1 more day and if patient remains stable we will anticipate discharge in the next 24 to 48 hours on home oxygen. Exam Vital Signs Temp Pulse Resp BP Pulse Ox O2 Del Method O2 Flow Rate 97.7 F 84 19 143/72 H 95 Nasal Cannula 6 06/01/24 04:00 06/01/24 06:38 06/01/24 06:38 06/01/24 04:00 06/01/24 06:38 06/01/24 04:00 06/01/24 06:38 Narrative Exam General: No acute distress, bedbound, nonverbal saturating 96% on 3 L oxy mask HEENT: NC/AT, PERRL, moist mucous membranes, right nevus on skin forehead and over eyelids Neck: Supple, No masses, No adenopathy, carotid pulse 2+ bilaterally without bruits, No JVD, normal range of motion. Chest: Symmetrical, atraumatic, and with equal expansion , Nontender on palpation no deformity and no crepitus. CVS: S1 and S2 present, Regular rate and rhythm, No murmurs, rubs or gallops perceived during auscultation. Lungs: Normal respiratory effort, decreased breath sounds on the left lung bases and fine crackles bilaterally perceived during auscultation, No intercostal or subcostal retraction. Abdomen : Soft, no tenderness to palpation, no guarding ,no rebound, +BS, PEG tube in place Extremities: Mild trace pedal edema bilaterally, warm well perfused, contracted bilateral upper and lower extremities, muscle atrophy, cap refill less than 2, +2 dp equal bilaterally Skin: Intact, no rashes, no lesions, no erythema or jaundice noted Neuro: Difficult to assess due to patient baseline mental status Psych: Difficult to assess the patient baseline mental status Objective Labs 06/01/24 04:41 06/01/24 04:41 Labs: Laboratory Results - last 24 hr 05/31/24 06/01/24 05:59 04:41 WBC 6.2 6.7 RBC 3.57 L 3.48 L Hgb 11.3 L 11.0 L Hct 33.6 L 33.1 L MCV 94 95 MCH 31.7 31.6 MCHC 33.6 33.2 RDW Std Deviation 46.3 46.6 H Plt Count 291 D 318 Neut % (Auto) 53 52 Lymph % (Auto) 30 29 [place] % (Auto) 11 13 H Eos % (Auto) 5 5 Baso % (Auto) 1 0 Neut # (Auto) 3.3 3.5 Lymph # (Auto) 1.9 2.0 [place] # (Auto) 0.7 0.9 H Eos # (Auto) 0.3 0.3 Baso # (Auto) 0.0 0.0 Immature Gran # (Auto) 0.06 H 0.05 H Absolute Nucleated RBC 0.00 0.00 Immature Gran % 1 H 1 H Nucleated RBC % 0 0 Sodium 134 L 137 Potassium 4.1 D 4.3 Chloride 99 103 Carbon Dioxide 28.8 29.0 Anion Gap 6 L 5 L BUN 26 H 23 Creatinine 0.3 L 0.4 L Estim Creat Clear Calc 130.1 97.6 eGFR > 60 > 60 BUN/Creatinine Ratio 87 H 58 H Glucose 136 H 131 H Calculated Osmolality 274 L 279 Calcium 8.7 8.9 Corrected Calcium 9.2 9.4 Phosphorus 3.4 4.1 Albumin 3.4 3.4 Quality Measures Quality Measures VTE prophylaxis Advance care planning discussed with:: legal surragate Assessment & Plan Assessment Current Active Medications: Generic Name Dose Route Start Last Admin Trade Name Freq PRN Reason Stop Dose Admin Acetaminophen 1,000 mg 05/30/24 09:11 Acetaminophen 500 Mg Tablet PO 06/23/24 17:42 Q6H PRN Fever >100 or pain 1-3 Albuterol/Ipratropium 3 ml 05/24/24 19:00 06/01/24 06:36 Albuterol/Ipratropium (Duoneb) Rt Rylee 3 Ml Nebu INH 06/23/24 18:59 3 ml Q6HRRT CARMITA Administration Ascorbic Acid 250 mg 05/25/24 21:00 05/31/24 22:07 Ascorbic Acid 250 Mg Tablet GT 06/24/24 20:59 250 mg BID CARMITA Administration Budesonide 0.25 mg 05/24/24 19:00 06/01/24 06:36 Budesonide Rt 0.25 Mg/2 Ml Nebu INH 06/23/24 18:59 0.25 mg BIDRT CARMITA Administration Enoxaparin Sodium 40 mg 05/25/24 09:00 05/31/24 10:14 Enoxaparin Sod Inj 40 Mg/0.4 Ml Syringe SC 06/08/24 08:59 40 mg QDAY CARMITA Administration Fluconazole 400 mg 05/26/24 09:00 05/31/24 10:22 Fluconazole Susp 40 Mg/Ml Ml GT 06/02/24 08:59 400 mg QDAY CARMITA Administration Ondansetron HCl 4 mg 05/24/24 17:43 Ondansetron Inj 2 Mg/Ml Inj 2 Ml IV 06/23/24 17:42 Q6H PRN NAUSEA OR VOMITING Protocol Pantoprazole Sodium 40 mg 05/29/24 09:00 05/31/24 10:12 Pantoprazole Inj 40 Mg Vial IV 06/28/24 08:59 40 mg QDAY CARMITA Administration Patiromer 4.2 gm 05/30/24 10:00 05/31/24 10:15 Patiromer Calcium 8.4 Gm Packet (Non-Form) PO 06/29/24 09:59 4.2 gm DAILY CARMITA Administration Phenobarbital 32.4 mg 05/30/24 09:00 06/01/24 05:32 Phenobarbital 32.4 Mg Tablet GT 06/13/24 08:59 32.4 mg TID CARMITA Administration Phenytoin 50 mg 05/25/24 09:30 05/31/24 22:06 Phenytoin 100 Mg/4 Ml Udc GT 06/23/24 20:59 50 mg BID CARMITA Administration Sodium Chloride 3 ml 05/24/24 10:04 Sodium Chloride Rt Rylee 0.9% 3 Ml Nebu INH 06/23/24 10:03 PRN PRN SOLN Vitamin B Complex/Vit C/Folic Acid 1 tab 05/25/24 13:15 05/31/24 10:13 Vit B12/Vit C/Fa (Nephrovite) Tablet GT 06/24/24 13:14 1 tab QDAY CARMITA Administration Zinc Sulfate 220 mg 05/25/24 13:15 05/31/24 10:13 Zinc Sulfate 220 Mg Capsule GT 06/24/24 13:14 220 mg QDAY CARMITA Administration Plan Assessment Daria is a 73 y/o female with PMHx of developmentally delayed, cerebral palsy, epilepsy, quadriplegic, cerebral palsy, blind, deaf, chronic PEG who is currently admitted for TB rule out and evaluation of cavitary lesion Acute hypoxic respiratory failure secondary to RSV pneumonia, on 05/21 Influenza A positive, on 05/19 Pseudomonas PNA Aspiration pneumonia in the setting of RT upper lobe cavitary lesion - TB rule out Bronchiectasis DDx: Cocci, TB, bleb, abscess, aspergillus CT chest: Septated irregular cavitary lesion in the right upper lobe, 6.4 cm in transverse dimension. Bronchiectasis right upper lobe Seen initially on chest x-ray in the right lobe. Unlikely abscess as patient does not have fever Pt has recently come in for influenza A and RSV pneumonia. Patient does sound congested on physical exam. History is limited so unsure if patient has been exposed to cocci or TB. Risk factors, vaccine history, with history all limited due to patient being poor historian Spoke with intermediate, patient not got in a PPD since 1982 and last time it was done it was normal - Cocci IgM positive, will restart Diflucan - MRSA negative - AFB x3 negative - QuantiFERON : negative Plan: - IV Solu-Medrol 125 x1 in the ED - Pulmonology consulted, appreciate recs. Per Dr Hurtado, CT imaging looks like possible chronic aspiration or previous TB for cocci, will need to further workup ? Infectious disease consulted, appreciate recs. - AFB : follow-up with other the last sample - Cocci serologies, follow-up with IgG as per ID Dr Hawk, IgM can always have false positive ? On Cefuroxime 500 mg twice daily (05/27 - 05/31) ? DuoNebs scheduled every 6 hours ? Aspergillus serum, follow-up ? Continue with fluconazole 400 mg ? Airborne precautions and Frequent suctioning ? Tylenol for fever ? Continue with Mucinex twice daily via G-tube ? Wean off oxygen as tolerated Euvolemic hypoosmolar hyponatremia, chronic Hyperkalemia Osmolarity 266 ; Sodium 131 Potassium 5.3 -> 5.1 -> 5.3 Plan: - 05/30 : Started on Veltassa 4.2 g daily - No hyperkalemic medicines that caused hyperkalemia, will continue to monitor History of seizure disorder Chronic No breakthrough seizures at this time Plan: ? Continue home phenobarbital 32.43 times a day ? Continue home phenytoin 50 mg twice a day Chronic PEG tube. Quadriplegia. Legally Blind Legally Deafness secondary to Cerebral palsy Developmental delay Consulted rn clinical research, appreciate recs Plan: ? Continue Jevity 1.2 at 20 ml/hr via PEG tube by pump. Advance 10 ml every 8 hrs to goal rate of 40 ml/hr x 24 hrs. ? Noel 1 pkt BID mixed with 6-8 oz water via PEG tube (unflavored). ? Vitamin C 250 mg BID, zinc sulfate 220 mg once daily, and nephro-vinay. Health Maintenance Disposition: Medsurg, TB rule out. AFB negative x3. Pending cocci r/o from [facility]. DVT prophylaxis: Lovenox. GI prophylaxis: Protonix. Diet: Jevity 1.2 TF. CODE STATUS: Full code. Patient discussed with my attending Dr Vida Hines MD PGY-3 Disclaimer: Despite multiple revisions, due to the dictation software being used, the document bellow may not be free of grammatical errors including phonetic/typographic errors. However, this does not deter from our commitment to providing health care in the patient's best interest in mind. Attending Provider Attestation/Addendum Patient still requiring oxygen supplementation. Continue current management. Monitor for worsening respiratory status I discussed with and supervised the resident physician who took care of this patient. I agree with the assessment and plan as above.
[2024-06-01] MEDS: ASCORBIC ACID 250 MG TABLET GT ×2 (09:41→21:07)
[2024-06-01] MEDS: VIT B12/Vit C/FA (Nephrovite) TABLET 1 TAB GT (09:41)
[2024-06-01] MEDS: ZINC SULFATE 220 MG CAPSULE GT (09:41)
[2024-06-01] MEDS: PHENYTOIN 100 MG/4 ML UDC 50 MG GT ×2 (09:42→21:07)
[2024-06-01] MEDS: ENOXAPARIN SOD INJ 40 MG/0.4 ML SYRINGE SC (09:42)
[2024-06-01] MEDS: PANTOPRAZOLE INJ 40 MG VIAL IV (09:42)
[2024-06-01] MEDS: FLUCONAZOLE SUSP 40 MG/ML ML 400 MG GT (09:43)
[2024-06-01] MEDS: PATIROMER CALCIUM 8.4 GM PACKET (NON-FORM) 4.2 GM PO (09:43)
[2024-06-02] VITALS (12 sets, daily range): BP systolic 155–174; BP diastolic 77–93; PULSE 82–104; RESP 16–21; TEMP 36.1–36.6; O2SAT 91–98
[2024-06-02] MEDS: ALBUTEROL/IPRATROPIUM (Duoneb) RT SOL 3 ML NEBU INH ×4 (00:09→18:23)
[2024-06-02] MEDS: PHENobarbitaL 32.4 MG TABLET GT ×2 (05:32→13:50)
[2024-06-02 05:51] LABS: Alanine Aminotransferase 30 U/L (10-49); Albumin, Serum 3.5 gm/dL (3.4-4.8); Albumin/Globulin Ratio 1.1 (1.2-2.2); Alkaline Phosphatase 168 U/L (46-116); Anion Gap 6 (7-16); Aspartate Amino Transferase 22 U/L (0-34); BUN/Creatinine Ratio 60 Ratio (12-20); Bilirubin,Total < 0.2 mg/dL (0.3-1.2); Blood Urea Nitrogen 18 mg/dL (9-23); Calcium 8.9 mg/dL (8.3-10.6); Calcium (Corrected) 9.3 mg/dL (8.5-10.1); Chloride 103 mMol/L (98-107); Creatinine (Component) 0.3 mg/dL (0.6-1.3); Estimated Creatinine Clearance 130.1 mL/min (>60); Globulin 3.3 gm/dL (2.3-3.5); Glucose 106 mg/dL (74-106); Magnesium 1.9 mg/dL (1.6-2.6); Osmolality,Calculated 275 (275-295); Potassium 4.6 mMol/L (3.4-5.1); Sodium 137 mMol/L (136-145); Total Protein 6.8 gm/dL (5.7-8.2); eGFR > 60 See Note
[2024-06-02 05:56] LABS: Basophils % (Auto) 1 % (0-2.5); Eosinophils # (Auto) 0.3 Thou/mm3 (0.0-0.5); Eosinophils % (Auto) 4 % (0-10); Hematocrit 33.9 % (36.0-46.0); Hemoglobin 11.3 g/dL (12.0-16.0); Immature Granulocytes % (Auto) 1 % (0-0); Immature Granulocytes Auto 0.04 Thou/mm3 (0.00-0.00); Lymphocytes % (Auto) 33 % (10-50); Mean Corpuscular HGB Conc 33.3 g/dl (31.0-37.0); Mean Corpuscular Hemoglobin 31.8 pg (25.0-35.0); Mean Corpuscular Volume 96 fL (80-100); Monocytes # (Auto) 0.8 Thou/mm3 (0.0-0.8); Monocytes % (Auto) 14 % (0-12); Neutrophils # (Auto) 2.9 Thou/mm3 (1.8-7.7); Neutrophils % (Auto) 48 % (37-80); Nucleated Red Blood Cell % 0 /100 WBC (0); Platelet Count 327 Thou/mm3 (140-440); RDW Standard Deviation 46.6 fL (36.4-46.3); Red Blood Count 3.55 Miln/mm3 (4.00-5.20)
[2024-06-02] MEDS: ASCORBIC ACID 250 MG TABLET GT (08:23)
[2024-06-02] MEDS: ZINC SULFATE 220 MG CAPSULE GT (08:23)
[2024-06-02] MEDS: PHENYTOIN 100 MG/4 ML UDC 50 MG GT (08:23)
[2024-06-02] MEDS: PANTOPRAZOLE INJ 40 MG VIAL IV (08:23)
[2024-06-02] MEDS: VIT B12/Vit C/FA (Nephrovite) TABLET 1 TAB GT (08:23)
[2024-06-02] MEDS: ENOXAPARIN SOD INJ 40 MG/0.4 ML SYRINGE SC (08:23)
[2024-06-02] MEDS: PATIROMER CALCIUM 8.4 GM PACKET (NON-FORM) 4.2 GM PO (10:20)
--- NOTE | 2024-06-02 10:34 | ESDS_ITS ---
Planned Discharge Date 06/02/24 DS: Providers Provider Date of admission: 05/24/24 17:43 Primary care physician: Physician No Primary/Family Admitting Provider: Bao Gibson MD Attending Provider on Admission: Madhav Lopez DO Consults: 05/24/24 17:49 Consult to Infectious Diseases Routine Comment: TB rule out, possible cavitary lesion Consulting Provider: Timmy Hawk Consult to Pulmonology Routine Comment: possible cavitary lesion/ TB rule out Consulting Provider: Marck Killian I 05/24/24 18:21 Referral Registered Dietitian Routine Comment: 05/26/24 22:58 Referral Wound Care Routine Comment: Attending Provider on DC: Kosta Beltran MD Discharging Provider: Jarred Mtz MD Anticipated date of discharge: 06/02/24 DS: Diagnosis Problem List Completed Was Problem List Reviewed/Reconciled?: Yes Hospital Course Hospital Course Hospital course: 73-year-old female with past medical history of developmentally delayed, cerebral palsy, epilepsy, quadriplegic, cerebral palsy, blind, deaf, chronic PEG who is currently admitted for TB rule out and evaluation of cavitary lesion. During hospital stay patients respiratory failure secondary to RSV and influenza with superimposed bacterial pneumonia was treated with IV steroids, IV antibiotics, breathing treatments. There was suspicion for TB and workup was done including QuantiFERON AFBs all which came back negative. Patient admission had hyperkalemia was given Veltassa and hyperkalemia Medications were discontinued. Patient had history of seizure disorder all seizure medications were resumed as taken at home. At this time patient is medically stable for discharge. follow up with primary doctor within 1 week of discharge. Continue to take fluconazole suspension through G-tube for treatment of valley fever. Continue to take siezure medications as prescribed. Should any symptoms recur or worsen patient instructed to return to the ED. Problem list: #Acute hypoxic respiratory failure #RSV pneumonia, on 05/21 #Influenza A positive, on 05/19 #Pseudomonas PNA #Aspiration pneumonia #RT upper lobe cavitary lesion - TB rule out #Bronchiectasis #Euvolemic hypoosmolar hyponatremia, chronic #Hyperkalemia #History of seizure disorder #Chronic PEG tube. #Quadriplegia. #Legally Blind #Legally Deafness #Cerebral palsy #Developmental delay Case discussed with my attending Dr. Devin Mtz MD PGY-1 Time spent discussing smoking cessation with patient: more than 10 minutes Status at Discharge Functional status at discharge: bed bound Overall status at discharge: patient is back to baseline Time Spent with Patient Time attestation: Total time spent providing and/or coordinating discharge services: Time spent: Greater than 30 minutes Exam Vital Signs Temp Pulse Resp BP Pulse Ox O2 Del Method O2 Flow Rate 97.3 F 90 18 166/83 H 95 Oxy Mask 4 06/02/24 08:00 06/02/24 08:00 06/02/24 08:00 06/02/24 08:00 06/02/24 08:00 06/02/24 08:00 06/02/24 08:00 Narrative Exam Physical Exam GENERAL: NAD, nonverbal HEENT: Moist mucosa. Eyes open, symmetrical, & clear CARDIO: Heart RRR, no obvious murmurs PULM: No noted coughing/dyspnea CTA B/L, no R/W/R GI: Abdomen soft, nondistended, no pain on palpation. BSx4 SKIN/MSK/EXT: No wounds/rashes/edema/amputations, no pain on palpation. Pedal pulses present B/L NEURO: no focal neuro deficits, able to move all 4 extremities Discharge Plan Plan Patient Disposition: HOME (Self Care) Disposition Comment: Back to [facility] Plan Goals: follow up with primary doctor within 1 week of discharge continue to take fluconazole suspension through G-tube for treatment of valley fever Continue to take siezure medications as prescribed. Should any symptoms recur or worsen patient instructed to return to the ED. Prescriptions/Referrals Prescriptions/Med Rec: New fluconazole 40 mg/mL Suspension For Reconstitution 400 mg G-tube QDAY 30 Days Qty: 300 0RF Continued loratadine 10 mg Tablet 10 mg feeding tube QDAY polyethylene glycol 3350 [ClearLax] 17 gram powder in packet 17 g feeding tube PRN PRN (Reason: constipation) hydroxyzine HCl 10 mg/5 mL solution 10 mg PO QID PRN (Reason: itching) phenytoin 50 mg Tablet,Chewable 50 mg G-tube BID phenobarbital 32.4 mg Tablet 32.4 mg feeding tube TID Referrals: No Primary/Family,Physician [Primary Care Provider] - Patient/Caregiver Discharge Instructions Print Language: Bulgarian Stand Alone Forms: Jessica Award Info., Patient Portal Info Letter Discharge Order Discharge Orders: Discharge (Routine); Ordered 06/02/24 Ordered By: Jarred Mtz Quality Discharge Quality Measures VTE prophylaxis Attestestation MD Attestation I discussed with and supervised the resident physician who took care of this patient. I agree with the assessment and discharge plan as above. The patient will need to be taken to her PCP for follow-up.
--- NOTE | 2024-06-02 11:03 | PC.SS ---
SS spoke to [facility] in regards to pt DC orders Per Aron pt requires O2. SS inquired if she can do O2 test and put in note so SS can order O2.
--- NOTE | 2024-06-02 13:06 | PC.NURSE ---
did oxygen test on patient patient is bedbound.she is 0n 4 litre of oxygen saturation of 94%.takde off the oxygen patient saturation is 90 % on room air.
--- NOTE | 2024-06-02 13:15 | PC.NURSE ---
pt desaturated to 86 and 97 and after placing the oxygen 2 l pt back to 90 %.
--- NOTE | 2024-06-02 13:24 | PC.NURSE ---
patient desatured to 86and 87 at room air. after oxygen 2l is appy patient back to 90 and 91.
--- NOTE | 2024-06-02 14:51 | PC.SS ---
SS spoke to [facility] [place] in regards to O2, they prefer [facility]. O2 ordered and submitted via [facility]. [facility] accepted and booked. ETA for O2 to home is 1-2hrs. Per [place] they are also requesting ambulance transport for the pt. SS set up transport through [facility] trip order #[id number]. SS uploaded documentation to [facility] via [facility]. Pending release from [facility].
--- NOTE | 2024-06-02 15:52 | PC.SS ---
SS spoke to [place], and she confirmed [facility] had dropped off O2 and concentrator at home. SS still pending release from [facility] to [facility]
[2024-06-02] MEDS: BUDESONIDE RT 0.25 MG/2 ML NEBU INH (18:23)
--- NOTE | 2024-06-02 18:45 | PC.NURSE ---
I called [facility] at [phone], to inquire about picking machine operator helper time for this pt., spoke with Nik, she stated [facility] will be calling to set up time for picking machine operator helper. Informed UC and bedside Rn, will await picking machine operator helper time.
== END 2024-06-02 20:25 | disposition home or self-care (01) | DRG 177 ==
LOC: SERX 17:12 → SERHOLD 18:04 → S3SX 05-27 05:52
PROVIDERS: Internal Medicine Infectious Disease; Student in an Organized Health Care Education/Training Program; Admitting Provider Student in an Organized Health Care Education/Training Program; Emergency Provider Emergency Medicine; Visit Provider Student in an Organized Health Care Education/Training Program
DX: B38.0 Acute pulmonary coccidioidomycosis (principal); J10.08 Influenza due to other identified influenza virus with other specified pneumonia; J12.1 Respiratory syncytial virus pneumonia; J96.01 Acute respiratory failure with hypoxia; J69.0 Pneumonitis due to inhalation of food and vomit; J96.02 Acute respiratory failure with hypercapnia; J47.0 Bronchiectasis with acute lower respiratory infection; E87.1 Hypo-osmolality and hyponatremia; J44.0 Chronic obstructive pulmonary disease with (acute) lower respiratory infection; J44.1 Chronic obstructive pulmonary disease with (acute) exacerbation; J21.9 Acute bronchiolitis, unspecified; G40.909 Epilepsy, unspecified, not intractable, without status epilepticus; J15.1 Pneumonia due to Pseudomonas; H91.90 Unspecified hearing loss, unspecified ear; G80.9 Cerebral palsy, unspecified; K59.00 Constipation, unspecified; H54.8 Legal blindness, as defined in USA; E87.5 Hyperkalemia; F79 Unspecified intellectual disabilities; Z93.1 Gastrostomy status; Z86.11 Personal history of tuberculosis; Z74.01 Bed confinement status; Z78.9 Other specified health status
CPT/HCPCS: 36415; 71045; 71250; 80053; 80069; 83605; 83735; 84145; 84484; 85025; 86171; 86480; 86635; 87015; 87040; 87077; 87081; 87116; 87186; 87205; 87206; 87305; 87811; 89220; 94640; 94644; 94667; 96365; 96375; 99285; A9270; J0692; J0696; J1650; J2470; J2919; J3490; J7050

== ENCOUNTER 2024-10-31 11:19 | Emergency (ER) | payer MEDICARE, MEDICAID, SELFPAY ==
[2024-10-31 11:22] VITALS: BP 165/91; PULSE 102; RESP 19; TEMP 37.1; O2SAT 92
--- NOTE | 2024-10-31 11:28 | XR_ITS ---
Examination: AP chest single view Technique one AP portable upright chest single view Date and time: October 31, 2024 1147 hours Comparison May 24, 2024 INDICATIONS: Sepsis protocol today. FINDINGS: Cavitary parenchymal disease right upper lobe again noted Bibasilar pneumonia Mild enlargement left ventricle Severe osteopenia IMPRESSION: Cavitary parenchymal disease right upper lobe again noted Bibasilar pneumonia
--- NOTE | 2024-10-31 11:28 | EKG_ITS ---
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
--- NOTE | 2024-10-31 11:29 | PD.EDADULT ---
ED General RME/HPI General Stated complaint: GENERAL WEAKNESS Time Seen by Provider: 10/31/24 11:21 Arrival date/time: 10/31/24 11:19 RME / HPI RME / HPI narrative: 74-year-old female patient with significant history of profound intellectual disability, nonverbal nonambulatory wheelchair-bound, status post G-tube feeding, seizure disorder, COPD,, cerebral palsy was brought to us by EMS for evaluation regarding possible aspiration pneumonia. Apparently patient was noted to be having gurgling sound, for the last few days. Patient was also noted to be coughing. Was seen by PCP 2 days ago and started on doxycycline for possible pneumonia. Patient is nonverbal, patient had a G-tube, currently on 24/7 oxygen. When the EMS arrived patient was on 2 L and satting between 90 to 91%.. Related Data Home Medications ?Medication ?Instructions ?Recorded ?Confirmed loratadine 10 mg tablet 10 mg feeding tube QDAY 10/01/21 05/28/24 phenobarbital 32.4 mg tablet 32.4 mg feeding tube TID 12/01/23 05/28/24 phenytoin 50 mg chewable tablet 50 mg G-tube BID 12/01/23 05/28/24 hydroxyzine HCl 10 mg/5 mL oral 10 mg PO QID PRN itching 05/22/24 05/28/24 solution polyethylene glycol 3350 17 gram 17 g feeding tube PRN PRN 05/22/24 05/28/24 oral powder packet (ClearLax) constipation Previous Rx's ?Medication ?Instructions ?Recorded amoxicillin 250 mg-potassium 15 ml PO TID 7 days #315 mL 10/31/24 clavulanate 62.5 mg/5 mL oral suspension (Augmentin) Allergies Allergy/AdvReac Type Severity Reaction Status Date / Time azithromycin Allergy Verified 10/31/24 12:17 Review of Systems Review of Systems Narrative Review of Systems: Review of system reviewed and within normal limits except mentioned in HPI ED Exam Narrative Physical exam: VITAL SIGNS: Reviewed. GENERAL APPEARANCE: A alert, opening eyes spontaneously, does not follows commands, no acute distress, nonverbal HEAD AND FACE: Non-traumatic. ENT: PERRL, pink conjunctivitis, eyelid no trauma, Mucous membrane moist. NECK: Supple, nontender, no nuchal rigidity. CHEST: No tenderness, no crepitus, no paradoxical movement, no retractions. Decreased breath sound on the left lung LUNGS: Clear, well ventilated, symmetric, no rales, no wheezing, no ronchi, no stridor, good breath sounds bilaterally. HEART: Regular rate, regular rhythm, no murmur, no gallops. ABDOMEN: Soft, positive bowel sounds, globular no guarding, nontender, no rebound, no masses, G-tube intact RECTAL: Deferred. GENITAL: Deferred. NEUROLOGICAL: Gross motor function intact sensory function intact, Appropriate for age. MUSCULOSKELETAL: low back nontender, full range of motion. EXTREMITIES: Nontender, limitation range of motion. Bilateral upper and lower extremity contracted at provide SKIN: Color pink, dry, no rash, no lacerations, no abrasions, no contusions. LYMPHATICS: Deferred. Course Quality Measures none Orders Category Date Time Status Business Representative STAT Care 10/31/24 11:28 Active Continuous Pulse Oximetry STAT Care 10/31/24 11:28 Completed EKG (ED ONLY) *Do not use* NOW Care 10/31/24 11:28 Completed EKG (ED ONLY) *Do not use* NOW Care 10/31/24 11:29 Completed In and Out Catheter X1PRN Care 10/31/24 11:28 Completed Insert IV NOW Care 10/31/24 11:28 Active NPO STAT Care 10/31/24 11:28 Active Strict Intake and Output Routine Care 10/31/24 11:[address] chest wo con Stat Exams 10/31/24 13:26 Completed EKG (ED Only) Stat Exams 10/31/24 11:28 Draft EKG (ED Only) Stat Exams 10/31/24 11:29 Ordered XR chest 1V SEPSIS PROTOCOL Stat Exams 10/31/24 11:28 Completed B-Type Natriuretic Peptide Stat Lab 10/31/24 11:45 Completed Blood Culture (Lab) Stat Lab 10/31/24 11:45 Received CBC Stat Lab 10/31/24 11:45 Completed Comprehensive Metabolic Panel Stat Lab 10/31/24 11:45 Completed LDH (Lactate Dehydrogenase) Stat Lab 10/31/24 11:45 Completed Lactate (Lactic Acid) Stat Lab 10/31/24 11:45 Completed Lactic Acid, 3 HR Stat Lab 10/31/24 15:08 Completed Lipase Stat Lab 10/31/24 11:45 Completed Magnesium Stat Lab 10/31/24 11:45 Completed Partial Thromboplastin Time Stat Lab 10/31/24 11:45 Completed Phosphorous Stat Lab 10/31/24 11:45 Completed Procalcitonin Stat Lab 10/31/24 11:45 Completed Prothrombin Time with INR Stat Lab 10/31/24 11:45 Completed Troponin I Stat Lab 10/31/24 11:45 Completed Urinalysis Stat Lab 10/31/24 12:04 Completed Urine Culture Stat Lab 10/31/24 12:04 Received Ampicillin/Sulbac Inj [Unasyn Inj] 3 gm Med 10/31/24 12:05 Discontinued Sodium Chloride 0.9% (Pop) [NS 0.9% mini bag] 100 ml IV X1 Sodium Chloride 0.9% 1000 ml [Ns] 1,000 ml Med 10/31/24 12:06 Discontinued IV 999 mls/hr Oxygen Delivery NOW RT 10/31/24 11:28 Active Vital Signs Vital signs: Vital Signs Temperature 98.7 F 10/31/24 11:22 Pulse Rate 102 H 10/31/24 11:22 Respiratory Rate 19 10/31/24 11:22 Blood Pressure 165/91 H 10/31/24 11:22 Pulse Oximetry (%) 92 L 10/31/24 11:22 Oxygen Delivery Method Nasal Cannula 10/31/24 11:22 Oxygen Flow Rate 3 10/31/24 11:22 Discharge Plan Plan Patient Disposition: HOME (Self Care) Discharge Disposition comment: Stable Prescriptions/Referrals Prescriptions/Med Rec: New amoxicillin-pot clavulanate [Augmentin] 250-62.5 mg/5 mL suspension for reconstitution 15 ml PO TID 7 Days Qty: 315 0RF No Action loratadine 10 mg Tablet 10 mg feeding tube QDAY polyethylene glycol 3350 [ClearLax] 17 gram powder in packet 17 g feeding tube PRN PRN (Reason: constipation) hydroxyzine HCl 10 mg/5 mL solution 10 mg PO QID PRN (Reason: itching) phenytoin 50 mg Tablet,Chewable 50 mg G-tube BID phenobarbital 32.4 mg Tablet 32.4 mg feeding tube TID Referrals: Angelique Chamorro [employer] [Primary Care Provider] - In 1 week Problem List Clinical Impression: Pneumonia Patient/Caregiver Discharge Instructions Discharge Activity: activity as tolerated Education Materials: What Is Pneumonia? Additional Instructions: Thank you for the opportunity for serving you today. You are stable for discharged . You are advised to: Follow-up with your PCP in 1 to 2 days Return to ED for worsening of symptoms Increase oral fluids Take medication as prescribed Augmentin, continue taking your doxycycline Suction the mouth as needed Your workup today came back with no infectious or metabolic abnormality except for the chest x-ray that showed mild pneumonia. You are satting 97% on 3 L. Continue using your oxygen 24/7 between 2 to 3 L Print Language: Indonesian Stand Alone Forms: Jessica Award Info., Patient Portal Info Letter BARBARA/SANTOSH Supervising Physician RICKY Supervising Physician: MD Janey MDM Narrative [facility] hospital course: 74-year-old female patient with significant history of profound intellectual disability, nonverbal nonambulatory wheelchair-bound, status post G-tube feeding, seizure disorder, COPD,, cerebral palsy was brought to us by EMS for evaluation regarding possible aspiration pneumonia. Apparently patient was noted to be having gurgling sound, for the last few days. Patient was also noted to be coughing. Was seen by PCP 2 days ago and started on doxycycline for possible pneumonia. Patient is nonverbal, patient had a G-tube, currently on 24/7 oxygen. When the EMS arrived patient was on 2 L and satting between 90 to 91%.. EKG showed sinus tachycardia, ventricular rate of 107 bpm, no ST segment elevation or depression noted. Patient workup is significant for mild pneumonia laboratory workup came back with no leukocytosis. Satting 97% on 3 L. Patient is using oxygen at home Patient was given IV Unasyn in the emergency room. Patient is stable to discharge back home. Afebrile entire stay in the emergency room. Medication Administration(s) Medication Administration History Discontinued Medications Ampicillin Sodium/Sulbactam (Sodium 3 gm/ Sodium Chloride) 100 mls @ 200 mls/hr IV X1 ONE Stop: 10/31/24 12:06 Last Infusion: 10/31/24 12:51 Dose: Infused Documented By: Admin: 10/31/24 12:21 Dose: 200 mls/hr Documented By: EF Sodium Chloride (Ns) 1,000 mls @ 999 mls/hr IV .Q1H1M ONE Stop: 10/31/24 13:06 Last Infusion: 10/31/24 13:22 Dose: Infused Documented By: Admin: 10/31/24 12:21 Dose: 999 mls/hr Documented By: CARLO Menezes Disposition: Discharge Home
[2024-10-31 11:35] VITALS: PULSE 105; PULSE 109; RESP 13; RESP 15; RESP 22; TEMP 37.2; O2SAT 93; O2SAT 94
[2024-10-31 11:59] LABS: Lactate (Lactic Acid) 2.4 mMol/L (0.4-2.0)
[2024-10-31 12:01] LABS: Basophils # (Auto) 0.1 Thou/mm3 (0.0-0.2); Basophils % (Auto) 1 % (0-2.5); Eosinophils # (Auto) 0.4 Thou/mm3 (0.0-0.5); Eosinophils % (Auto) 4 % (0-10); Hematocrit 38.4 % (36.0-46.0); Hemoglobin 13.1 g/dL (12.0-16.0); Immature Granulocytes Auto 0.05 Thou/mm3 (0.00-0.00); Lymphocytes # (Auto) 3.2 Thou/mm3 (1.0-4.8); Lymphocytes % (Auto) 35 % (10-50); Mean Corpuscular HGB Conc 34.1 g/dl (31.0-37.0); Mean Corpuscular Hemoglobin 32.0 pg (25.0-35.0); Mean Corpuscular Volume 94 fL (80-100); Monocytes # (Auto) 1.1 Thou/mm3 (0.0-0.8); Monocytes % (Auto) 12 % (0-12); Neutrophils # (Auto) 4.5 Thou/mm3 (1.8-7.7); Neutrophils % (Auto) 48 % (37-80); Nucleated Red Blood Cell # 0.00 Thou/mm3 (0.00-0.00); Nucleated Red Blood Cell % 0 /100 WBC (0); Platelet Count 283 Thou/mm3 (140-440); RDW Standard Deviation 45.1 fL (36.4-46.3); Red Blood Count 4.10 Miln/mm3 (4.00-5.20); White Blood Count 9.3 Thou/mm3 (3.6-11.0)
[2024-10-31 12:10] LABS: Collection Type, Urine Clean Catch
[2024-10-31 12:14] LABS: INR 1.0 (0.9-1.3); Partial Thromboplastin Time 24.7 Seconds (22.0-36.0); Prothrombin Time 10.5 Seconds (9.0-12.2)
[2024-10-31 12:18] LABS: Bilirubin,Urine Negative (Negative); Blood,Urine Trace (Negative); Clarity,Urine Clear (Clear/Hazy); Color,Urine Colorless (Lt Yel-Yel); Glucose, Urine Negative (Negative); Ketones,Urine Negative (Negative); Leukocyte Esterase,Urine Negative (Negative); Nitrite,Urine Negative (Negative); PH,Urine 7.5 (5.0-7.0); Protein,Urine Negative (Neg - Trace); RBC,Urine 7 /hpf (0-3); Specific Gravity,Urine 1.006 (1.001-1.035); Squamous Epithelial Cell,Urine < 1 /hpf (0-5); Urobilinogen,Urine Negative mg/dL (0.0-1.0); WBC,Urine 2 /hpf (0-5)
[2024-10-31] MEDS: SODIUM CHLORIDE 0.9% 1000 ML 1,000 ML 999 ML IV (12:21)
[2024-10-31] MEDS: AMPICILLIN/SULBAC INJ 3 GM in SODIUM CHLORIDE 0.9% (POP) 100 ML IV (12:21)
[2024-10-31 12:29] LABS: Alanine Aminotransferase 26 U/L (10-49); Albumin, Serum 3.9 gm/dL (3.4-4.8); Albumin/Globulin Ratio 1.1 (1.2-2.2); Alkaline Phosphatase 233 U/L (46-116); Anion Gap 8 (7-16); Aspartate Amino Transferase 23 U/L (0-34); BUN/Creatinine Ratio 30 Ratio (12-20); Bilirubin,Total < 0.2 mg/dL (0.3-1.2); Blood Urea Nitrogen 15 mg/dL (9-23); Calcium 9.2 mg/dL (8.3-10.6); Calcium (Corrected) 9.3 mg/dL (8.5-10.1); Carbon Dioxide 26.8 mMol/L (20.0-31.0); Chloride 98 mMol/L (98-107); Creatinine (Component) 0.5 mg/dL (0.6-1.3); Globulin 3.7 gm/dL (2.3-3.5); Glucose 124 mg/dL (74-106); LDH (Lactate Dehydrogenase) 169 U/L (120-246); Lipase 37 U/L (12-53); Magnesium 1.6 mg/dL (1.6-2.6); Osmolality,Calculated 268 (275-295); Phosphorous 3.3 mg/dL (2.4-5.1); Potassium 4.1 mMol/L (3.4-5.1); Procalcitonin < 0.04 ng/ml (0.0-0.49); Sodium 133 mMol/L (136-145); Total Protein 7.6 gm/dL (5.7-8.2); Troponin I < 0.020 ng/mL (0.0-0.045); eGFR > 60 See Note
[2024-10-31 12:37] LABS: B-Type Natriuretic Peptide 60 pg/mL (0-100)
--- NOTE | 2024-10-31 13:26 | XR_ITS ---
Examination: CT chest, without intravenous contrast. Sagittal and coronal 2-D reconstructions. Exam date and time: October 31, 2024 1332 hours Comparison May 24, 2024 INDICATIONS: Septated cavitary lesion right upper lobe 6.4 cm in dimension, bronchiectasis right upper lobe, pneumonia left base and lingular segment on CT chest May 24, 2024 CTDI:vol (mGy) 17.7 DLP: (mGycm) 549 Technique: Multiple 3.0 mm axial sections of the chest to been obtained. Bone and lung density settings are obtained. Sagittal and coronal 2-D reconstructions have been obtained. Low dose protocols were performed. One or more of the following dose reduction techniques were used; automated exposure control, adjustment of the mA and/or KV according to patient size, use of iterative reconstruction technique. Findings: 15 mm calcified right thyroid nodule No thoracic aortic aneurysm dilatation Pulmonary artery segments are not enlarged No significant change in septated extensive cavitary disease in the right upper lobe There remains mild pneumonia in the lingular segment and left base No new areas of pneumonia are depicted Mild enlargement cardiac contour No focal liver or splenic lesions No gallstones No pancreatic mass No visualized renal calculi IMPRESSION: No significant change in septated irregular cavitary lesions in the right upper lobe No significant change in pneumonia lingular segment and left base Differential would include active tuberculosis
[2024-10-31 14:00] VITALS: BP 175/106; PULSE 102; RESP 20; TEMP 36.4; O2SAT 96
[2024-10-31 14:55] LABS: Reflex Lactate? Y
[2024-10-31 15:20] LABS: Lactic Acid, 3 HR 1.8 mMol/L (0.4-2.0)
[2024-10-31 16:00] VITALS: BP 162/100; PULSE 96; RESP 18; TEMP 36.4; O2SAT 97
--- NOTE | 2024-10-31 17:25 | PC.CC ---
Keely HERR was consulted by MAURI Zhao for transportation back home for the patient. PHARMACEUTICAL OFFICER made telephone contact with [facility] and obtained Reservation number [phone].
[2024-10-31 18:00] VITALS: BP 177/99; PULSE 96; RESP 23; TEMP 36.4; O2SAT 93
== END 2024-10-31 20:00 | disposition home or self-care (01) ==
PROVIDERS: Nurse Practitioner Family; Emergency Provider Family Medicine; PCP Nurse Practitioner Family
DX: J18.9 Pneumonia, unspecified organism (principal); J44.0 Chronic obstructive pulmonary disease with (acute) lower respiratory infection; R00.0 Tachycardia, unspecified; F73 Profound intellectual disabilities; Z99.3 Dependence on wheelchair; Z93.1 Gastrostomy status
CPT/HCPCS: 51701; 36415; 71045; 71250; 80053; 81001; 83605; 83615; 83690; 83735; 83880; 84100; 84145; 84484; 85025; 85610; 85730; 87040; 87077; 87086; 87186; 93005; 96361; 96365; 99284; J0295; J7030

== ENCOUNTER 2025-03-13 11:35 | Emergency (ER) | payer MEDICARE, MEDICAID, SELFPAY ==
[2025-03-13] VITALS (8 sets, daily range): BP systolic 155–185; BP diastolic 81–118; PULSE 69–96; RESP 16–22; TEMP 36.2–36.7; O2SAT 96–100
--- NOTE | 2025-03-13 11:57 | XR_ITS ---
AP portable semiupright chest film at 03/13/2025 at 12:06 p.m. Comparison study 10/31/2024 and 05/24/2024 CLINICAL INDICATION: Shortness of breath for 2 days FINDINGS: This elderly debilitated patient has both of her arms flexed over her anterior chest obscuring much of the pulmonary anatomy. She is also taken a very poor inspiration. Nonetheless significant cardiomegaly is present unchanged from the previous film of 05/24/2024. This patient has chronic major elevation of the minor fissure on the right consistent with chronic volume loss in the right upper lobe. The right upper lobe is pretty much completely replaced with numerous large and small thin-walled cystic lesion consistent with major bronchiectasis most likely. The remainder of the right lung appears most probably normal but the patient's right hand obscures much of the right lung detail. On the left, as best I can tell allowing for the overlapping of both hands obscuring part of the anatomy in the left lung, I believe that the left lung is probably clear. Again noted is marked rotatory scoliosis of the mid dorsal spine convexity to the right this is unchanged major osteoporosis is seen in the bones. IMPRESSION: 1. Chest film is suboptimal, related both to a very poor inspiration into the fact that the patient's hands and arms overlap and obscure much of the chest anatomy. 2 there is chronic major elevation of the minor fissure on the right with chronic volume loss in the right upper lobe, which is pretty much completely replaced by thin-walled cystic lesions, felt to relate to bronchiectasis most likely. 3 no other definite abnormalities are seen in the lungs, but again, the lungs are very poorly visualized on this film for reasons noted above
[2025-03-13] MEDS: MethylPREDNISolone SOD SUCC 62.5 MG/ML 2ML VIAL 125 MG IVP (12:14)
[2025-03-13] MEDS: SODIUM CHLORIDE 0.9% 500 ML 500 ML 100 ML IV (12:14)
[2025-03-13 12:26] LABS: Collection Type, Urine Clean Catch; Squamous Epithelial Cell,Urine 0 /hpf (0-5)
[2025-03-13 12:30] LABS: Lactate (Lactic Acid) 2.6 mMol/L (0.4-2.0)
[2025-03-13 12:33] LABS: Basophils # (Auto) 0.0 Thou/mm3 (0.0-0.2); Basophils % (Auto) 1 % (0-2.5); Bilirubin,Urine Negative (Negative); Blood,Urine Negative (Negative); Clarity,Urine Clear (Clear/Hazy); Color,Urine Lt-Yellow (Lt Yel-Yel); Eosinophils # (Auto) 0.2 Thou/mm3 (0.0-0.5); Eosinophils % (Auto) 3 % (0-10); Glucose, Urine Negative (Negative); Hematocrit 44.0 % (36.0-46.0); Hemoglobin 14.5 g/dL (12.0-16.0); Immature Granulocytes Auto 0.03 Thou/mm3 (0.00-0.00); Ketones,Urine Negative (Negative); Leukocyte Esterase,Urine Negative (Negative); Lymphocytes # (Auto) 2.3 Thou/mm3 (1.0-4.8); Lymphocytes % (Auto) 36 % (10-50); Mean Corpuscular HGB Conc 33.0 g/dl (31.0-37.0); Mean Corpuscular Hemoglobin 31.1 pg (25.0-35.0); Mean Corpuscular Volume 94 fL (80-100); Monocytes # (Auto) 0.6 Thou/mm3 (0.0-0.8); Monocytes % (Auto) 9 % (0-12); Neutrophils # (Auto) 3.2 Thou/mm3 (1.8-7.7); Neutrophils % (Auto) 51 % (37-80); Nitrite,Urine Negative (Negative); Nucleated Red Blood Cell # 0.00 Thou/mm3 (0.00-0.00); Nucleated Red Blood Cell % 0 /100 WBC (0); PH,Urine 7.5 (5.0-7.0); Platelet Count 211 Thou/mm3 (140-440); Protein,Urine Negative (Neg - Trace); RBC,Urine 1 /hpf (0-3); RDW Standard Deviation 46.5 fL (36.4-46.3); Red Blood Count 4.66 Miln/mm3 (4.00-5.20); Specific Gravity,Urine 1.009 (1.001-1.035); Urobilinogen,Urine Negative mg/dL (0.0-1.0); WBC,Urine < 1 /hpf (0-5); White Blood Count 6.3 Thou/mm3 (3.6-11.0)
[2025-03-13] MEDS: ALBUTEROL RT 2.5 MG/3 ML NEBU INH (12:39)
[2025-03-13 12:50] LABS: INR 0.9 (0.9-1.3); Prothrombin Time 10.1 Seconds (9.0-12.2)
[2025-03-13 13:00] LABS: Alanine Aminotransferase 26 U/L (10-49); Albumin, Serum 4.1 gm/dL (3.4-4.8); Albumin/Globulin Ratio 1.1 (1.2-2.2); Alkaline Phosphatase 262 U/L (46-116); Anion Gap 8 (7-16); Aspartate Amino Transferase 25 U/L (0-34); BUN/Creatinine Ratio 38 Ratio (12-20); Bilirubin,Total 0.2 mg/dL (0.3-1.2); Blood Urea Nitrogen 15 mg/dL (9-23); Calcium 9.3 mg/dL (8.3-10.6); Calcium (Corrected) 9.3 mg/dL (8.5-10.1); Carbon Dioxide 26.8 mMol/L (20.0-31.0); Chloride 101 mMol/L (98-107); Creatinine (Component) 0.4 mg/dL (0.6-1.3); Globulin 3.6 gm/dL (2.3-3.5); Glucose 111 mg/dL (74-106); Magnesium 2.1 mg/dL (1.6-2.6); Osmolality,Calculated 273 (275-295); Potassium 4.2 mMol/L (3.4-5.1); Sodium 136 mMol/L (136-145); Total Protein 7.7 gm/dL (5.7-8.2); Troponin I < 0.020 ng/mL (0.0-0.045); eGFR > 60 See Note
[2025-03-13 13:06] LABS: B-Type Natriuretic Peptide 25 pg/mL (0-100)
--- NOTE | 2025-03-13 13:20 | PD.EDSOB ---
ED SOB =RME/HPI General Chief Complaint: Shortness of Breath/Dyspnea Stated Complaint: SOB Time Seen by Provider: 03/13/25 11:55 Arrival date/time: 03/13/25 11:35 Limitations: no limitations RME / HPI RME / HPI Narrative: 74 year old female with history of developmental delay, cerebral palsy, epilepsy, quadriplegia, chronic PEG tube, prior admission for respiratory failure secondary to RSV and influenza presents to the ED BIBA for evaluation of shortness of breath today. Per caregiver, the patient has experienced similar shortness of breath when admitted here for RSV and pneumonia 05/2024 and worried the patient may have pneumonia again. No other associated symptoms reported. Related Data Home Medications ?Medication ?Instructions ?Recorded ?Confirmed loratadine 10 mg tablet 10 mg feeding tube QDAY 10/01/21 05/28/24 phenobarbital 32.4 mg tablet 32.4 mg feeding tube TID 12/01/23 05/28/24 phenytoin 50 mg chewable tablet 50 mg G-tube BID 12/01/23 05/28/24 hydroxyzine HCl 10 mg/5 mL oral 10 mg PO QID PRN itching 05/22/24 05/28/24 solution polyethylene glycol 3350 17 gram 17 g feeding tube PRN PRN 05/22/24 05/28/24 oral powder packet (ClearLax) constipation Previous Rx's ?Medication ?Instructions ?Recorded levofloxacin 250 mg/10 mL oral 500 mg (20 mL) PO Q24H Bronchitis 03/13/25 solution 10 days #200 mL Allergies Allergy/AdvReac Type Severity Reaction Status Date / Time azithromycin Allergy Verified 10/31/24 12:17 Review of Systems Review of Systems ROS Unobtainable: unobtainable due to medical condition Past Medical History Past Medical History NEUROLOGIC: Positive Neurological Disorders, Seizures, Epilepsy and Cerebral Palsy RESPIRATORY: Positive Pneumonia GASTROINTESTINAL: Positive Gastrointestinal Disorders GENITOURINARY: Positive Genitourinary Disorders MUSCULOSKELETAL: Positive Musculoskeletal Disorders ENT: Positive Blind OTHER HISTORY: Positive Developmental Delay Social History SMOKING STATUS: Unknown if ever smoked ED Exam General Limitations: Present no limitations General appearance: Present alert and other (Oxygen in place ) Head Head exam: Present atraumatic, normocephalic and normal inspection Eye Eye exam: Present other (Blind in both eyes, she prefers to look off to the right upper ) ENT ENT exam: Present normal exam, normal oropharynx and mucous membranes moist Neck Neck exam: Present normal inspection (without masses ), full ROM and trachea midline Chest Chest inspection: Present normal inspection and symmetric chest wall rise Respiratory Respiratory exam: Present normal lung sounds bilaterally Cardiovascular Cardiovascular exam: Present regular rate, normal rhythm and normal heart sounds Abdominal Exam Abdominal exam: Present soft and normal bowel sounds; Absent tenderness, guarding, rebound or rigidity Extremities Exam Extremities exam: Present other (upper extremities are contracted at the wrist and hands. The lower extremities are contracted at the knees and hips at 45-60 degrees. No skin issues. ) Back Exam Back exam: Present normal inspection and full ROM Neurological Exam Neurological exam: Present other ( The patient wasnt able to answer questions or cooperate with the exam. ) Skin Skin exam: Present warm, dry, intact and normal color Course Quality Measures none Orders Category Date Time Status In and Out Catheter X1 Care 03/13/25 12:08 Completed Insert [Insert IV] NOW Care 03/13/25 11:57 Active CXRP [XR chest 1V portable] Stat Exams 03/13/25 11:57 Completed B-Type Natriuretic Peptide Stat Lab 03/13/25 12:10 Completed Blood Culture (Lab) Stat Lab 03/13/25 12:24 Received CBC Stat Lab 03/13/25 12:10 Completed Comprehensive Metabolic Panel Stat Lab 03/13/25 12:10 Completed Lactic Acid [Lactate (Lactic Acid)] Stat Lab 03/13/25 12:10 Completed Magnesium Stat Lab 03/13/25 12:10 Completed Prothrombin Time with INR Stat Lab 03/13/25 12:10 Completed Troponin I Stat Lab 03/13/25 12:10 Completed Urinalysis Stat Lab 03/13/25 12:10 Completed ALBUTEROL RT 3ml [Proventil Rt 3ml] Med 03/13/25 12:07 Discontinued 2.5 mg INH X1 ONE MethylPREDNISolone.* [SoluMEDROL Inj] Med 03/13/25 11:56 Discontinued 125 mg IVP X1 ONE Sodium Chloride 0.9% 500 ml [Ns] 500 ml Med 03/13/25 11:56 Discontinued IV 100 mls/hr cefTRIAXone [Rocephin] 2 gm Med 03/13/25 13:11 Discontinued SODIUM CHLORIDE 0.9% (Popper) [Ns 0.9% (P)] 50 ml IV X1 Vital Signs Vital signs: Vital Signs Temperature 98.1 F 03/13/25 11:45 Pulse Rate 85 03/13/25 11:45 Respiratory Rate 18 03/13/25 11:45 Blood Pressure 185/81 H 03/13/25 11:45 Pulse Oximetry (%) 100 03/13/25 11:45 Oxygen Delivery Method Room Air 03/13/25 11:45 Pulse ox is 100% on room air which is adequate. Shortness of Breath / Dyspnea MDM Narrative MDM Narrative:: Ava Figueroa am scribing for and in the presence of Dr. Toth. 1430p: While in the ED, the patient had an apneic episode, could have possibly been a seizure. Patient wasn't having any spontaneous respirations and shortly after spontaneously began breathing again. During that time her oxygen saturations had dropped and placed on oxygen. Once the patient began breathing on her own the oxygen was removed and patient is saturating 98% on room air. We reviewed all the results, analysis, and treatment plans with the caregiver. Caregiver is amenable to discharge. Strict return precautions were outlined. Patient data External records reviewed:: [facility] previous records Clinical information provided by:: patient Social determinants that could affect healthcare access:: none Patient has the following chronic illnesses:: Developmentally delayed, cerebral palsy, epilepsy, quadriplegia, chronic PEG tube. Prior admission for respiratory failure secondary to RSV and influenza. Patient has a history of seizure disorder as stated and while patient was in the emergency department had an apneic episode most likely due to an acute seizure which was about 30 to 45 seconds in length. O2 saturations came back to normal after the apneic episode was over. How is presenting disease/condition affected by chronic disease/condition?: exacerbated by Evaluation data The following diagnostics were reviewed and interpreted by me:: lab results and radiology exam(s) Lab and/or radiology exams considered but not ordered:: None Interpretation Summary: Ordering Physician: Maxwell Toth MD Date of Service: 03/13/25 Procedure(s): XR chest 1V portable Accession Number(s): [id number] cc: Maxwell Toth MD; Howard Contreras MD~ AP portable semiupright chest film at 03/13/2025 at 12:06 p.m. Comparison study 10/31/2024 and 05/24/2024 CLINICAL INDICATION: Shortness of breath for 2 days FINDINGS: This elderly debilitated patient has both of her arms flexed over her anterior chest obscuring much of the pulmonary anatomy. She is also taken a very poor inspiration. Nonetheless significant cardiomegaly is present unchanged from the previous film of 05/24/2024. This patient has chronic major elevation of the minor fissure on the right consistent with chronic volume loss in the right upper lobe. The right upper lobe is pretty much completely replaced with numerous large and small thin-walled cystic lesion consistent with major bronchiectasis most likely. The remainder of the right lung appears most probably normal but the patient's right hand obscures much of the right lung detail. On the left, as best I can tell allowing for the overlapping of both hands obscuring part of the anatomy in the left lung, I believe that the left lung is probably clear. Again noted is marked rotatory scoliosis of the mid dorsal spine convexity to the right this is unchanged major osteoporosis is seen in the bones. IMPRESSION: 1. Chest film is suboptimal, related both to a very poor inspiration into the fact that the patient's hands and arms overlap and obscure much of the chest anatomy. 2 there is chronic major elevation of the minor fissure on the right with chronic volume loss in the right upper lobe, which is pretty much completely replaced by thin-walled cystic lesions, felt to relate to bronchiectasis most likely. 3 no other definite abnormalities are seen in the lungs, but again, the lungs are very poorly visualized on this film for reasons noted above Dictated By: Howard Contreras MD Signed By: <Electronically signed by Howard Contreras MD in OV> 03/13/25 1221 Medications / Prescriptions Medications or Prescriptions considered but not ordered:: None Medication administrations:: Medication Administration History Discontinued Medications Albuterol (Albuterol Rt 2.5 Mg/3 Ml Nebu) 2.5 mg INH X1 ONE Stop: 03/13/25 12:08 Last Admin: 03/13/25 12:39 Dose: 2.5 mg Documented By: [facility] Sodium Chloride (Ns) 500 mls @ 100 mls/hr IV .Q5H ONE Stop: 03/13/25 16:55 Last Infusion: 03/13/25 17:36 Dose: Infused Documented By: Admin: 03/13/25 12:14 Dose: 100 mls/hr Documented By: EF Ceftriaxone Sodium 2 gm/ (Sodium Chloride) 50 mls @ 100 mls/hr IV X1 ONE Stop: 03/13/25 13:40 Last Infusion: 03/13/25 14:23 Dose: Infused Documented By: Admin: 03/13/25 13:42 Dose: 100 mls/hr Documented By: EF Methylprednisolone Sodium Succinate (Methylprednisolone Sod Succ 62.5 Mg/Ml 2ml Vial) 125 mg IVP X1 ONE Stop: 03/13/25 11:57 Last Admin: 03/13/25 12:14 Dose: 125 mg Documented By: EF See above Consultations Consultation(s) initiated? (list below): No Diagnosis Shortness of Breath Differential Diagnosis: acute exacerbation of chronic obstructive airways disease, congestive heart failure, community acquired pneumonia and other Most likely diagnosis given after review of the tests above:: Bronchiectasis Admission Indicated Admission indicated?: not indicated Admission Request Was there a request for admission?: No Disposition Plan Disposition Plan: Discharge Discharge Attestation Discharge Attestation: The patient and all family members were given an opportunity to ask questions and understood the discharge instructions. Discharge instructions specifically effects, indications for sooner follow up or return to the emergency department, and the expected course of current diagnosis. Patient condition: Stable Discharge Plan Plan Patient Disposition: HOME (Self Care) Patient condition on transfer: Stable Prescriptions/Referrals Prescriptions/Med Rec: New levofloxacin 250 mg/10 mL solution 500 mg PO Q24H MDD 20 ml 10 Days Qty: 200 0RF No Action loratadine 10 mg Tablet 10 mg feeding tube QDAY polyethylene glycol 3350 [ClearLax] 17 gram powder in packet 17 g feeding tube PRN PRN (Reason: constipation) hydroxyzine HCl 10 mg/5 mL solution 10 mg PO QID PRN (Reason: itching) phenytoin 50 mg Tablet,Chewable 50 mg G-tube BID phenobarbital 32.4 mg Tablet 32.4 mg feeding tube TID Problem List Clinical Impression: Bronchiectasis Patient/Caregiver Discharge Instructions Discharge Activity: activity as tolerated Education Materials: Bronchiectasis Dc Additional Instructions: Antibiotics have been prescribed an oral solution. Please give daily for 10 days. Follow-up with her primary care doctor as scheduled. Continue phenobarbital and phenytoin at their current doses. Consider a sleep study in order to look at any periodic apnea. Print Language: Solomon Islander Stand Alone Forms: Jessica Award Info., Patient Portal Info Letter
[2025-03-13] MEDS: cefTRIAXone 2 GM in SODIUM CHLORIDE 0.9% (Popper) 50 ML IV (13:42)
--- NOTE | 2025-03-13 15:00 | PC.SS ---
Addendum entered by Mikaela Raygoza 03/13/25 15:48: SS was contacted by [facility]. ETA is set for 1800. SS will update patient's nurse. Original Note: SS follow up note; SS set up transportation with [facility], . Reference, # [id number]. SS will sent PCS form via [facility].
[2025-03-13 15:23] LABS: Reflex Lactate? Y
--- NOTE | 2025-03-13 17:40 | PC.NURSE ---
turned patient at this time
[2025-03-13] MEDS: hydrALAZINE INJ 20 MG/ML VIAL 10 MG IVP (18:24)
--- NOTE | 2025-03-13 19:09 | PC.NURSE ---
report given to [facility] nurse via telephone
== END 2025-03-13 19:11 | disposition home or self-care (01) ==
LOC: SERX 14:08
PROVIDERS: Emergency Provider Family Medicine
DX: J47.9 Bronchiectasis, uncomplicated (principal)
CPT/HCPCS: 36415; 51701; 71045; 80053; 81001; 83605; 83735; 83880; 84484; 85025; 85610; 87040; 87077; 87186; 94640; 96361; 96365; 96375; 99284; J0360; J0696; J2919; J3490; J7050; J7999

== ENCOUNTER 2025-03-24 10:02 | Emergency (ER) | payer MEDICARE, MEDICAID, SELFPAY ==
[2025-03-24 10:05] VITALS: BP 168/84; PULSE 86; TEMP 36.4; O2SAT 93
[2025-03-24 10:11] VITALS: PULSE 88; RESP 12; O2SAT 95
[2025-03-24 10:15] VITALS: PULSE 89; RESP 20
--- NOTE | 2025-03-24 10:31 | EKG_ITS ---
[facility] Test Date: 2025-03-24 Pat Name: MARKUS LEIGH Department: Room: - Gender: Female [employer]: : 1950 Requested By: Aurora Lackey Order Number: [id number] Reading MD: Aurora Lackey Measurements Intervals [place] Rate: 82 P: 59 NV: 141 QRS: 40 QRSD: 74 T: 43 QT: 350 QTc: 410 Interpretive Statements SINUS RHYTHM LOW QRS VOLTAGE IN PRECORDIAL LEADS [QRS DEFLECTION < 1.0 mV IN CHEST LEADS] Compared to ECG 10/31/2024 11:37:07 Sinus tachycardia no longer present /store/S0/[id number]/ecg/[id number].pdf
--- NOTE | 2025-03-24 10:32 | EDNOTE_ITS ---
ED SOB =RME/HPI General Chief Complaint: Shortness of Breath/Dyspnea Stated Complaint: SOB Time Seen by Provider: 03/24/25 10:24 Arrival date/time: 03/24/25 10:02 RME / HPI RME / HPI Narrative: 74-year-old female [facility] for increased work of breathing that was noted today. Is usually on 3 L nasal cannula baseline and sats are noted to be 93% on 3 L per EMS. They report that she has been treated for pneumonia for the past 9 days with antibiotics. Patient baseline mentation is nonverbal, GCS 12, contracted, history of cerebral palsy. Per EMS who have seen patient a number of times in the past, she appears to be at her baseline. Related Data Home oxygen amount: 3 liters Home Medications ?Medication ?Instructions ?Recorded ?Confirmed loratadine 10 mg tablet 10 mg feeding tube QDAY 07/04/2405/28/24 phenobarbital 32.4 mg tablet 32.4 mg feeding tube TID 12/01/23 05/28/24 phenytoin 50 mg chewable tablet 50 mg G-tube BID 11/3005/28/24 hydroxyzine HCl 10 mg/5 mL oral 10 mg PO QID PRN itchi ng 05/22/24 05/28/24 solution polyethylene glycol 3350 17 gram 17 g feeding tube PRN PRN 05/22/24 05/28/24 oral powder packet (ClearLax) constipation Previous Rx's ?Medication ?Instructions ?Recorded levofloxacin 750 mg tablet 750 mg PO Q24H 4 days #4 ta bs 03/24/25 Allergies Allergy/AdvReac Type Severity Reaction Status Date / Time azithromycin Allergy Verified 10/31/24 12:17 Review of Systems Review of Systems ROS Unobtainable: unobtainable due to mental status Past Medical History Past Medical History NEUROLOGIC: Positive Neurological Disorders, Seizures, Epilepsy and Cerebral Palsy RESPIRATORY: Positive Pneumonia GASTROINTESTINAL: Positive Gastrointestinal Disorders GENITOURINARY: Positive Genitourinary Disorders MUSCULOSKELETAL: Positive Musculoskeletal Disorders ENT: Positive Blind OTHER HISTORY: Positive Developmental Delay Social History SMOKING STATUS: Never smoker Past Medical History Comments PMH COMMENT: COPD, cerebral palsy, developmental delay, seizures, pneumonia ED Exam Narrative Physical exam: Constitutional: Patient sitting in bed, contracted, nonverbal, does not appear in acute distress at this time. 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 CV: Regular rate and rhythm, no murmurs/rubs/gallops Lungs: Patient's with scattered rhonchi, otherwise clear to auscultation bilaterally. Does not appear in respiratory distress at this time. On 3 L nasal cannula. Abd: Soft, does not appear distended or tender to palpation. Has G-tube in place. Extremities: Contracted to bilateral upper and lower extremities. Skin: Erythematous maculopapular rash noted to abdomen bilaterally. Course Quality Measures none Orders Category Date Time Status Bedside COVID-19 Antigen Test NOW Care 03/24/25 10:32 Active Bedside Influenza A&B Antigen Test NOW Care 03/24/25 10:32 Completed Quality Control Coordinator NOW Care 03/24/25 10:31 Active Continuous Pulse Oximetry NOW Care 03/24/25 10:31 Completed EKG (ED ONLY) *Do not use* NOW Care 03/24/25 10:31 Completed Insert IV STAT Care 03/24/25 10:31 Active EKG (ED Only) Stat Exams 03/24/25 10:31 Ordered XR chest 1V portable Stat Exams 03/24/25 10:31 Completed B-Type Natriuretic Peptide Stat Lab 03/24/25 10:58 Completed CBC Stat Lab 03/24/25 10:58 Completed Comprehensive Metabolic Panel Stat Lab 03/24/25 10:58 Completed Magnesium Stat Lab 03/24/25 10:58 Completed levoFLOXacin/D5W 750MG IVPB [Levaquin Ivpb] Med 03/24/25 12:00 Discontinued 750 mg in 150 ml IV NOW Oxygen Delivery NOW RT 03/24/25 10:31 Active Vital Signs Vital signs: Vital Signs Temperature 97.5 F 03/24/25 10:05 Pulse Rate 86 03/24/25 10:05 Blood Pressure 168/84 H 03/24/25 10:05 Pulse Oximetry (%) 93 L 03/24/25 10:05 Oxygen Delivery Method Oxy Mask 03/24/25 10:05 Oxygen Flow Rate 15 03/24/25 10:05 Shortness of Breath / Dyspnea MDM Narrative MDM Narrative:: Ava Figueroa am scribing for and in the presence of Dr. Gordon. 74 year old female was brought in by [facility] for increased work of breathing noted today. Patient is chronically on 3 L nasal cannula with EMS reporting oxygen saturation of 93% on baseline oxygen. She has been undergoing treatment for pneumonia for the past 9 days. Per EMS, who are familiar with the patient, her mentation and overall appearance are at baseline. On ED evaluation, patient appears comfortable and not in acute respiratory distress, remaining on 3 L nasal cannula with oxygen saturations 97?98%. Lung exam notable for scattered rhonchi, otherwise clear. CBC and CMP are unremarkable. Chest X-ray demonstrates findings consistent with pneumonia. Patient was given a dose of levofloxacin in the ED. Given stable exam, reassuring labs, oxygenation at baseline, and no evidence of clinical deterioration, patient is appropriate for [facility]. Patient data External records reviewed:: [facility] previous records and EMS form Clinical information provided by:: EMS Social determinants that could affect healthcare access:: housing (SNF resident) Patient has the following chronic illnesses:: developmental delay, cerebral palsy, epilepsy, quadriplegia, chronic PEG tube, prior admission for respiratory failure How is presenting disease/condition affected by chronic disease/condition?: exacerbated by Evaluation data The following diagnostics were reviewed and interpreted by me:: lab results and radiology exam(s) Lab and/or radiology exams considered but not ordered:: None Interpretation Summary: Ordering Physician: Aurora Gordon MD Date of Service: 03/24/25 Procedure(s): XR chest 1V portable Accession Number(s): [id number] cc: Howard Contreras MD; Aurora Gordon MD; Ariel Walker MD~ AP portable semiupright view of the chest on 03/24/2025 at 10:50 9:00 a.m. Comparison study 03/13/2025 Clinical indication :shortness of breath FINDINGS: In the right lung, as noted on the previous film there is chronic major elevation of the minor fissure with chronic major volume loss in the right upper lobe, principally related to multiple thin-walled cystic lesions. The appearance here suggests probable bronchiectasis on a chronic basis. In the left lung there is now definite abnormal consolidation in the posterior medial left lower lobe with air bronchograms. Left upper lobe appears normal IMPRESSION: 1. Today's film shows definite pulmonary consolidation in the posterior medial base of the left lower lobe which was not present on the previous chest film. This is most consistent with pneumonia 2. Chronic elevation of the minor fissure on the right, chronic significant volume loss in the right upper lobe, replaced by numerous cystic blebs, possibly related to bronchiectasis Dictated By: Howard Contreras MD Signed By: <Electronically signed by Howard Contreras MD in OV> 03/24/25 1115 Medications / Prescriptions Medications or Prescriptions considered but not ordered:: None Medication administrations:: Medication Administration History Discontinued Medications Levofloxacin/Dextrose (Levaquin Ivpb) 750 mg in 150 mls @ 100 mls/hr IV NOW ONE Stop: 03/24/25 13:29 Last Admin: 03/24/25 13:15 Dose: 100 mls/hr Documented By: ED See above Consultations Consultation(s) initiated? (list below): No Diagnosis Shortness of Breath Differential Diagnosis: acute exacerbation of chronic obstructive airways disease, congestive heart failure, community acquired pneumonia and asthma with exacerbation Most likely diagnosis given after review of the tests above:: Pneumonia Admission Indicated Admission indicated?: not indicated Admission Request Was there a request for admission?: No Disposition Plan Disposition Plan: Discharge Discharge Attestation Discharge Attestation: The patient and all family members were given an opportunity to ask questions and understood the discharge instructions. Discharge instructions specifically effects, indications for sooner follow up or return to the emergency department, and the expected course of current diagnosis. Patient condition: Stable Discharge Plan Plan Patient Disposition: HOME (Self Care) Patient condition on transfer: Stable Prescriptions/Referrals Prescriptions/Med Rec: New levofloxacin 750 mg tablet 750 mg PO Q24H 4 Days Qty: 4 0RF Rx Instructions: To hold hydroxyzine while taking levofloxacin No Action loratadine 10 mg Tablet 10 mg feeding tube QDAY polyethylene glycol 3350 [ClearLax] 17 gram powder in packet 17 g feeding tube PRN PRN (Reason: constipation) hydroxyzine HCl 10 mg/5 mL solution 10 mg PO QID PRN (Reason: itching) phenytoin 50 mg Tablet,Chewable 50 mg G-tube BID phenobarbital 32.4 mg Tablet 32.4 mg feeding tube TID Referrals: Ariel Walker MD [Primary Care Provider, Family Practice] - In 1 week Problem List Clinical Impression: Pneumonia Patient/Caregiver Discharge Instructions Education Materials: ED Pneumonia (Adult) Print Language: Estonian Stand Alone Forms: Jessica Award Info., Patient Portal Info Letter
[2025-03-24 11:16] LABS: Basophils # (Auto) 0.0 Thou/mm3 (0.0-0.2); Basophils % (Auto) 1 % (0-2.5); Eosinophils # (Auto) 0.3 Thou/mm3 (0.0-0.5); Eosinophils % (Auto) 4 % (0-10); Hematocrit 37.5 % (36.0-46.0); Hemoglobin 12.5 g/dL (12.0-16.0); Immature Granulocytes Auto 0.06 Thou/mm3 (0.00-0.00); Lymphocytes # (Auto) 1.7 Thou/mm3 (1.0-4.8); Lymphocytes % (Auto) 24 % (10-50); Mean Corpuscular HGB Conc 33.3 g/dl (31.0-37.0); Mean Corpuscular Hemoglobin 31.2 pg (25.0-35.0); Mean Corpuscular Volume 94 fL (80-100); Monocytes # (Auto) 0.7 Thou/mm3 (0.0-0.8); Monocytes % (Auto) 10 % (0-12); Neutrophils # (Auto) 4.2 Thou/mm3 (1.8-7.7); Neutrophils % (Auto) 60 % (37-80); Nucleated Red Blood Cell # 0.00 Thou/mm3 (0.00-0.00); Nucleated Red Blood Cell % 0 /100 WBC (0); Platelet Count 241 Thou/mm3 (140-440); RDW Standard Deviation 45.9 fL (36.4-46.3); Red Blood Count 4.01 Miln/mm3 (4.00-5.20); White Blood Count 7.0 Thou/mm3 (3.6-11.0)
[2025-03-24 11:30] LABS: B-Type Natriuretic Peptide 32 pg/mL (0-100)
[2025-03-24 11:37] LABS: Alanine Aminotransferase 19 U/L (10-49); Albumin, Serum 3.5 gm/dL (3.4-4.8); Albumin/Globulin Ratio 1.0 (1.2-2.2); Alkaline Phosphatase 216 U/L (46-116); Anion Gap 8 (7-16); Aspartate Amino Transferase 21 U/L (0-34); BUN/Creatinine Ratio 35 Ratio (12-20); Bilirubin,Total < 0.2 mg/dL (0.3-1.2); Blood Urea Nitrogen 14 mg/dL (9-23); Calcium 8.7 mg/dL (8.3-10.6); Calcium (Corrected) 9.1 mg/dL (8.5-10.1); Carbon Dioxide 25.9 mMol/L (20.0-31.0); Chloride 101 mMol/L (98-107); Creatinine (Component) 0.4 mg/dL (0.6-1.3); Globulin 3.6 gm/dL (2.3-3.5); Glucose 123 mg/dL (74-106); Magnesium 2.0 mg/dL (1.6-2.6); Osmolality,Calculated 271 (275-295); Potassium 4.0 mMol/L (3.4-5.1); Sodium 135 mMol/L (136-145); Total Protein 7.1 gm/dL (5.7-8.2); eGFR > 60 See Note
[2025-03-24 11:55] VITALS: BP 180/91; PULSE 79; RESP 19; TEMP 36.6; O2SAT 94
[2025-03-24 16:39] VITALS: BP 166/84; PULSE 69; RESP 21; TEMP 36.4; O2SAT 96
[2025-03-24 19:29] VITALS: BP 177/82; PULSE 85; RESP 20; TEMP 36.4; O2SAT 97
== END 2025-03-24 21:10 | disposition home or self-care (01) ==
PROVIDERS: Emergency Provider Family Medicine; PCP Family Medicine
DX: J18.9 Pneumonia, unspecified organism (principal); R94.31 Abnormal electrocardiogram [ECG] [EKG]
CPT/HCPCS: 36415; 71045; 80053; 83735; 83880; 85025; 87502; 87635; 93005; 96365; 99285; J1956